=== PATIENT | female | born 1950 | race Caucasian/White ===

== ENCOUNTER 2017-11-19 14:22 | Emergency (ER) | payer MEDICARE, BC ==
--- NOTE | 2017-11-19 14:43 | ER Document Report ---
ED Medical Screen (RME) - General Chief Complaint: Leg Pain Stated Complaint: LEG PAIN Time Seen by Provider: 11/19/17 14:35 Notes: RAPID MEDICAL EVALUATION DISCLOSURE I have seen this patient as part of a Rapid Medical Evaluation and, if applicable, placed any initially appropriate orders. The patient will be seen and fully evaluated, including a full history and physical exam, by a provider ( in Main ED or Fast Track) when a room becomes available. 67-year-old female here with complaints of continued bilateral leg pain and swelling over the past 3 months. She is currently on warfarin for atrial fibrillation but wonders if she may have a blood clot. Several weeks ago, her doctor ordered Doppler studies "to look at the blood flow but not to look for blood clots". She denies that she has had any ultrasounds to evaluate for DVTs. EXAM TTP BLEs TRAVEL OUTSIDE OF THE [place] IN LAST 30 DAYS: No - Related Data Allergies/Adverse Reactions: bacitracin [From Neosporin] Allergy (Verified 11/19/17 14:25) bacitracin zinc [From Neosporin] Allergy (Verified 11/19/17 14:25) balsam [place] [Balsam [place]] Allergy (Verified 11/19/17 14:25) gramicidin D [From Neosporin] Allergy (Verified 11/19/17 14:25) neomycin sulfate [From Neosporin] Allergy (Verified 11/19/17 14:25) polymyxin B [From Neosporin] Allergy (Verified 11/19/17 14:25) polymyxin B sulfate [From Neosporin] Allergy (Verified 11/19/17 14:25) terconazole [From Terazol 3] Allergy (Verified 11/19/17 14:25) Past Medical History - Social History Chew tobacco use (# tins/day): No Frequency of alcohol use: None Drug Abuse: None Renal/ Medical History: Denies: Hx Peritoneal Dialysis GI Medical History: Reports: Hx Irritable Bowel Physical Exam - Vital signs Vitals: Temp Pulse Resp BP Pulse Ox 98.4 F 66 18 126/80 H 98 11/19/17 14:30 11/19/17 14:30 11/19/17 14:30 11/19/17 14:30 11/19/17 14:30 Course - Vital Signs Vital signs: Temp Pulse Resp BP Pulse Ox 98.4 F 66 18 126/80 H 98 11/19/17 14:30 11/19/17 14:30 11/19/17 14:30 11/19/17 14:30 11/19/17 14:30
[2017-11-19 15:32] LABS: ABSOLUTE BASOPHILS # (AUTO) 0.1 10^3/uL (0.0-0.2); ABSOLUTE EOSINOPHILS # (AUTO) 0.2 10^3/uL (0.0-0.6); ABSOLUTE LYMPHOCYTES (AUTO) 2.5 10^3/uL (0.5-4.7); ABSOLUTE MONOCYTES (AUTO) 0.6 10^3/uL (0.1-1.4); ABSOLUTE NEUT (AUTO) 5.5 10^3/uL (1.7-8.2); BASOPHILS % (AUTO) 0.9 % (0-2); EOSINOPHILS % (AUTO) 2.3 % (0-6); HEMATOCRIT 41.4 % (36.0-47.0); HEMOGLOBIN 13.8 g/dL (12.0-15.5); LYMPHOCYTES % (AUTO) 27.9 % (13-45); MEAN CORPUSCULAR HEMOGLOBIN 28.8 pg (27.0-33.4); MEAN CORPUSCULAR HGB CONC 33.5 g/dL (32.0-36.0); MEAN CORPUSCULAR VOLUME 86 fl (80-97); MONOCYTES % (AUTO) 7.2 % (3-13); PLATELET COUNT 262 10^3/uL (150-450); RED BLOOD COUNT 4.81 10^6/uL (3.72-5.28); RED CELL DISTRIBUTION WIDTH 14.4 % (11.5-14.0); SEGMENTED NEUTROPHILS % (AUTO) 61.7 % (42-78); TOTAL CELLS COUNTED % (AUTO) 100 %; WHITE BLOOD COUNT 8.9 10^3/uL (4.0-10.5)
[2017-11-19 15:55] LABS: ANION GAP 14 (5-19); BLOOD UREA NITROGEN 17 mg/dL (7-20); CALCIUM 9.8 mg/dL (8.4-10.2); CARBON DIOXIDE 22 mmol/L (22-30); CHLORIDE 105 mmol/L (98-107); GLUCOSE 126 mg/dL (75-110)
--- NOTE | 2017-11-19 16:07 | ER Document Report ---
ED General - General Chief Complaint: Leg Pain Stated Complaint: LEG PAIN Time Seen by Provider: 11/19/17 14:35 Mode of Arrival: Ambulatory Information source: Patient Notes: 67-year-old female with atrial fibrillation presents with complaint of bilateral leg pain. Patient states leg pain has been present for 3 months with worsening of pain over the last few days. Patient states the majority of her pain is behind her left knee. She denies any prior history of DVT or PE. She denies any shortness of breath or chest pain. She denies any fall or injury. Patient states that she was recently seen at urgent care for sciatica and was referred to rehab. She does state that she had a recent 15 [address] ride from [place]. She is on Coumadin currently. TRAVEL OUTSIDE OF THE [place] IN LAST 30 DAYS: No - HPI Onset: Other Onset/Duration: Constant, Worse Quality of pain: Throbbing Severity: Moderate Associated symptoms: Leg swelling, Other - Right-sided back pain. denies: Chest pain, Shortness of breath Exacerbated by: Walking Relieved by: Denies Similar symptoms previously: Yes Recently seen / treated by doctor: Yes - Related Data Allergies/Adverse Reactions: bacitracin [From Neosporin] Allergy (Verified 11/19/17 14:25) bacitracin zinc [From Neosporin] Allergy (Verified 11/19/17 14:25) balsam lilia [Balsam [place]] Allergy (Verified 11/19/17 14:25) gramicidin D [From Neosporin] Allergy (Verified 11/19/17 14:25) neomycin sulfate [From Neosporin] Allergy (Verified 11/19/17 14:25) polymyxin B [From Neosporin] Allergy (Verified 11/19/17 14:25) polymyxin B sulfate [From Neosporin] Allergy (Verified 11/19/17 14:25) terconazole [From Terazol 3] Allergy (Verified 11/19/17 14:25) Past Medical History - General Information source: Patient, [facility] Records - Social History Smoking Status: Never Smoker Chew tobacco use (# tins/day): No Frequency of alcohol use: None Drug Abuse: None Family History: Reviewed & Not Pertinent Patient has suicidal ideation: No Patient has homicidal ideation: No - Past Medical History Cardiac Medical History: Reports: Hx Atrial Fibrillation Renal/ Medical History: Denies: Hx Peritoneal Dialysis GI Medical History: Reports: Hx Irritable Bowel Musculoskeltal Medical History: Reports Hx Arthritis Review of Systems - Review of Systems Notes: REVIEW OF SYSTEMS: CONSTITUTIONAL : Denies fever, chills, or sweats. Denies recent illness. Denies weight loss, recent hospitalizations. EENT: Denies visula changes, eye pain. Denies nasal or sinus congestion or discharge. Denies sore throat, oral lesions, difficulty swallowing. CARDIOVASCULAR: Denies chest pain. Denies palpitations or racing or irregular heart beat. Denies lower extremity edema. RESPIRATORY: Denies cough, cold, or chest congestion. Denies shortness of breath, difficulty breathing, or wheezing. GASTROINTESTINAL: Denies abdominal pain or distention. Denies nausea, vomiting , or diarrhea. Denies blood in vomitus, stools, or per rectum. Denies black, tarry stools. Denies constipation. GENITOURINARY: Denies difficulty urinating, painful urination, burning, frequency, blood in urine, or vaginal discharge. MUSCULOSKELETAL: Admits to left-sided back pain, bilateral lower extremity pain , left leg swelling. SKIN: Denies rash, lesions or sores. HEMATOLOGIC : Denies easy bruising or bleeding. LYMPHATIC: Denies swollen, enlarged glands. NEUROLOGICAL: Denies confusion or altered mental status. Denies passing out or loss of consciousness. Denies dizziness or lightheadedness. Denies headache. Denies weakness or paralysis or loss of use of either side. Denies problems with gait or speech. Denies sensory loss, numbness, or tingling. Denies seizures. PSYCHIATRIC: Denies anxiety or stress. Denies depression, suicidal ideation, or homicidal ideation. Physical Exam - Vital signs Vitals: Temp Pulse Resp BP Pulse Ox 98.4 F 66 18 126/80 H 98 11/19/17 14:30 11/19/17 14:30 11/19/17 14:30 11/19/17 14:30 11/19/17 14:30 - Notes Notes: PHYSICAL EXAMINATION: GENERAL: Well-appearing, well-nourished and in no acute distress. HEAD: Atraumatic, normocephalic. EYES: Pupils equal round and reactive to light, extraocular movements intact, conjunctiva are normal. ENT: Nares patent, oropharynx clear without exudates. Moist mucous membranes. NECK: Normal range of motion, supple without lymphadenopathy LUNGS: Breath sounds clear to auscultation bilaterally and equal. No wheezes rales or rhonchi. HEART: Regular rate and rhythm without murmurs ABDOMEN: Soft, nontender, nondistended abdomen. No guarding, no rebound. No masses appreciated. Female : deferred Musculoskeletal: Normal range of motion, no pitting or edema. No cyanosis. Tender to palpation along the left calf, left quadricep. mild swelling of left thigh, no erythema, no deformity. DP pulse intact, cap refill less than 2 seconds. NEUROLOGICAL: Cranial nerves grossly intact. Normal speech, normal gait. Normal sensory, motor exams PSYCH: Normal mood, normal affect. SKIN: Warm, Dry, normal turgor, no rashes or lesions noted. Course - Re-evaluation Re-evalutation: 11/19/17 17:52 Venous Doppler Study 11/19/17 14:41 IMPRESSION: NO EVIDENCE DVT OR SVT IN EITHER LEG. Knee X-Ray 11/19/17 16:42 IMPRESSION: Mild patellofemoral degenerative joint changes with no acute abnormality. Lumbar Spine X-Ray 11/19/17 16:42 IMPRESSION: Degenerative disc disease, spondylosis, and facet arthropathy. Laboratory 11/19/17 11/19/17 11/19/17 15:16 15:16 15:16 WBC 8.9 RBC 4.81 Hgb 13.8 Hct 41.4 MCV 86 MCH 28.8 MCHC 33.5 RDW 14.4 H Plt Count 262 Seg Neutrophils % 61.7 Lymphocytes % 27.9 Monocytes % 7.2 Eosinophils % 2.3 Basophils % 0.9 Absolute Neutrophils 5.5 Absolute Lymphocytes 2.5 Absolute Monocytes 0.6 Absolute Eosinophils 0.2 Absolute Basophils 0.1 PT 30.3 H INR 2.74 Sodium 141.0 Potassium 4.0 Chloride 105 Carbon Dioxide 22 Anion Gap 14 BUN 17 Creatinine 0.72 Est GFR ( Amer) > 60 Est GFR (Non-Af Amer) > 60 Glucose 126 H Calcium 9.8 11/19/17 23:45 67-year-old female with atrial fibrillation presents with complaint of bilateral lower extremity pain, left greater than right and left lower extremity swelling that has been ongoing for 3 months. Signs stable upon arrival. Exam is significant for pain with palpation of the left calf and left thigh. There is mild swelling of the left thigh when compared to right. There is no associated erythema. Ultrasound was obtained and negative for DVT. X- rays of the lumbar spine did show degenerative disc disease and x-rays of the left knee was significant for patello femoral degeneration. Patient was advised to ice, use an Johnson wrap, take Tylenol as needed for pain and return to her primary care physician for possible referral to for physical therapy. Patient was also advised that weight loss would help. Patient provided the opportunity to ask questions, and express concerns. Discharge instructions discussed. Patient is agreeable with discharge home. Return indications explained and discussed with the patient who displays understanding. Patient encouraged to return to the emergency department immediately with any concerns. 11/19/17 23:48 - Vital Signs Vital signs: Temp Pulse Resp BP Pulse Ox 97.6 F 62 16 141/65 H 100 11/19/17 18:15 11/19/17 18:15 11/19/17 18:15 11/19/17 18:15 11/19/17 18:15 - Laboratory Result Diagrams: 11/19/17 15:16 11/19/17 15:16 Laboratory results interpreted by me: 11/19/17 11/19/17 11/19/17 15:16 15:16 15:16 RDW 14.4 H PT 30.3 H Glucose 126 H - Diagnostic Test Radiology reviewed: Image reviewed, Reports reviewed Discharge - Discharge Clinical Impression: Left leg pain, Left leg swelling Degenerative disc disease Qualifiers: Spinal region: lumbar Qualified Code(s): M51.36 - Other intervertebral disc degeneration, lumbar region Patella-femoral syndrome Qualifiers: Laterality: left Qualified Code(s): M22.2X2 - Patellofemoral disorders, left knee Disposition: HOME, SELF-CARE Instructions: Suspected Internal Knee Injury ([facility]), Knee Effusion ([facility]), Knee Exercise Program ([facility]), Low Back Pain ([facility]) Additional Instructions: Follow up with your physician tomorrow for further care or return to the ED IMMEDIATELY if symptoms worsen or new concerns occur. If you cannot afford to follow up with your primary care physician a list of low cost clinics have been provided at the end of your discharge papers as well. Prescriptions: Acetaminophen [Tylenol 650 mg Supp] 650 mg CA Q4HP PRN #[id number] supp.rect PRN Reason: Referrals: FLACO COON MD [Primary Care Provider] - Follow up in 3-5 days
[2017-11-19 16:28] LABS: INTERNATIONAL RATION (INR) 2.74; PROTHROMBIN TIME 30.3 SEC (11.4-15.4)
--- NOTE | 2017-11-19 16:36 | RADIOLOGY REPORT (SQ) ---
EXAM DESCRIPTION: VENOUS BILATERAL LOWER COMPLETED DATE/TIME: 11/19/2017 4:25 pm REASON FOR STUDY: BLE swelling and pain; eval DVT COMPARISON: None. TECHNIQUE: Dynamic and static romero scale and color images acquired of both lower extremity venous sy stems. Selected spectral images acquired with additional compression and augmentation maneuvers. Imag es stored on PACS. LIMITATIONS: None. FINDINGS: RIGHT LEG COMMON FEMORAL AND FEMORAL: Normal phasicity, compression and augmentation. No visualized echogenic m aterial on romero scale. No defects on color images. POPLITEAL: Normal compression and augmentation. No visualized echogenic material on romero scale. No de fects on color images. CALF VESSELS: Normal compression and augmentation. No visualized echogenic material on romero scale. No defects on color image. GSV AND SSV: Normal compression. No visualized echogenic material on romero scale. No defects on color images. ANY DEEP VENOUS INSUFFICIENCY: Not evaluated. ANY EVIDENCE OF POPLITEAL CYST: No. OTHER: No other significant finding. LEFT LEG COMMON FEMORAL AND FEMORAL: Normal phasicity, compression and augmentation. No visualized echogenic m aterial on romero scale. No defects on color images. POPLITEAL: Normal compression and augmentation. No visualized echogenic material on romero scale. No de fects on color images. CALF VESSELS: Normal compression and augmentation. No visualized echogenic material on romero scale. No defects on color images. GSV AND SSV: Normal compression. No visualized echogenic material on romero scale. No defects on color images. ANY DEEP VENOUS INSUFFICIENCY: Not evaluated. ANY EVIDENCE POPLITEAL CYST: No. OTHER: No other significant finding. IMPRESSION: NO EVIDENCE DVT OR SVT IN EITHER LEG. TECHNICAL DOCUMENTATION: JOB ID: [id number] [employer]- All Rights Reserved Reading location - IP/workstation name: [email or web address]
--- NOTE | 2017-11-19 17:42 | RADIOLOGY REPORT (SQ) ---
EXAM DESCRIPTION: KNEE LEFT 4 VIEW COMPLETED DATE/TIME: 11/19/2017 5:14 pm REASON FOR STUDY: pain COMPARISON: None. NUMBER OF VIEWS: Four views. TECHNIQUE: AP, lateral, and both oblique radiographic images acquired of the left knee. LIMITATIONS: None. FINDINGS: MINERALIZATION: Normal. BONES: No acute fracture or dislocation. No worrisome bone lesions. JOINT: No effusion. There is a posterosuperior patellar spur. SOFT TISSUES: No soft tissue swelling. No radio-opaque foreign body. OTHER: No other significant finding. IMPRESSION: Mild patellofemoral degenerative joint changes with no acute abnormality. TECHNICAL DOCUMENTATION: JOB ID: [id number] [employer]- All Rights Reserved Reading location - IP/workstation name: [email or web address]
--- NOTE | 2017-11-19 17:47 | RADIOLOGY REPORT (SQ) ---
EXAM DESCRIPTION: L SPINE WHOLE COMPLETED DATE/TIME: 11/19/2017 5:14 pm REASON FOR STUDY: pain COMPARISON: None. NUMBER OF VIEWS: Five views including obliques. TECHNIQUE: AP, lateral, oblique, and sacral radiographic images acquired of the lumbar spine. LIMITATIONS: None. FINDINGS: MINERALIZATION: Normal. SEGMENTATION: Normal. No transitional anatomy. ALIGNMENT: Normal. VERTEBRAE: Maintained height. No fracture or worrisome bone lesion. DISCS: All the lumbar disc spaces are narrowed to some degree. Small marginal osteophytes are seen f rom L2-L5. POSTERIOR ELEMENTS: Mild hypertrophic facet changes are present from L4-S1. HARDWARE: None in the spine. PARASPINAL SOFT TISSUES: Normal. PELVIS: Intact as visualized. No fractures or worrisome bone lesions. SI joints intact. OTHER: No other significant finding. IMPRESSION: Degenerative disc disease, spondylosis, and facet arthropathy. TECHNICAL DOCUMENTATION: JOB ID: [id number] [employer]- All Rights Reserved Reading location - IP/workstation name: [email or web address]
[2017-11-19 18:21] VITALS: BP 141/65
== END 2017-11-19 19:12 | disposition home or self-care (01) ==
LOC: ER 14:22
DX: M22.2X2 Patellofemoral disorders, left knee (principal); M51.36 Other intervertebral disc degeneration, lumbar region; M79.605 Pain in left leg; M79.89 Other specified soft tissue disorders; M79.604 Pain in right leg; M25.562 Pain in left knee; I48.91 Unspecified atrial fibrillation; Z79.01 Long term (current) use of anticoagulants
CPT/HCPCS: 36415; 72110; 80048; 85025; 85610; 93970; 99284

== ENCOUNTER → 2017-11-26 | Outpatient (CLI) | payer MEDICARE, BC ==
--- NOTE | 2017-11-26 16:59 | RADIOLOGY REPORT (SQ) ---
EXAM DESCRIPTION: CHEST PA/LATERAL COMPLETED DATE/TIME: 11/26/2017 4:51 pm REASON FOR STUDY: PRIMARY HYPERTENSION COMPARISON: None. EXAM PARAMETERS: NUMBER OF VIEWS: two views TECHNIQUE: Digital Frontal and Lateral radiographic views of the chest acquired. RADIATION DOSE: NA LIMITATIONS: none FINDINGS: LUNGS AND PLEURA: No opacities, masses or pneumothorax. No pleural effusion. MEDIASTINUM AND HILAR STRUCTURES: No masses or contour abnormalities. HEART AND VASCULAR STRUCTURES: Heart normal size. No evidence for failure. BONES: No acute findings. HARDWARE: None in the chest. OTHER: No other significant finding. IMPRESSION: NO SIGNIFICANT RADIOGRAPHIC FINDING IN THE CHEST. TECHNICAL DOCUMENTATION: JOB ID: [id number] [employer]- All Rights Reserved Reading location - IP/workstation name: [email or web address]
[2017-11-26 17:12] LABS: ABSOLUTE BASOPHILS # (AUTO) 0.1 10^3/uL (0.0-0.2); ABSOLUTE EOSINOPHILS # (AUTO) 0.1 10^3/uL (0.0-0.6); ABSOLUTE LYMPHOCYTES (AUTO) 2.6 10^3/uL (0.5-4.7); ABSOLUTE MONOCYTES (AUTO) 0.8 10^3/uL (0.1-1.4); ABSOLUTE NEUT (AUTO) 6.4 10^3/uL (1.7-8.2); BASOPHILS % (AUTO) 0.8 % (0-2); EOSINOPHILS % (AUTO) 1.5 % (0-6); HEMATOCRIT 39.9 % (36.0-47.0); HEMOGLOBIN 13.4 g/dL (12.0-15.5); LYMPHOCYTES % (AUTO) 26.2 % (13-45); MEAN CORPUSCULAR HEMOGLOBIN 28.9 pg (27.0-33.4); MEAN CORPUSCULAR HGB CONC 33.6 g/dL (32.0-36.0); MEAN CORPUSCULAR VOLUME 86 fl (80-97); MONOCYTES % (AUTO) 8.1 % (3-13); PLATELET COUNT 251 10^3/uL (150-450); RED BLOOD COUNT 4.63 10^6/uL (3.72-5.28); RED CELL DISTRIBUTION WIDTH 14.3 % (11.5-14.0); SEGMENTED NEUTROPHILS % (AUTO) 63.4 % (42-78); TOTAL CELLS COUNTED % (AUTO) 100 %; WHITE BLOOD COUNT 10.1 10^3/uL (4.0-10.5)
[2017-11-26 17:20] LABS: APPEARANCE,URINE SLIGHTLY-CLOUDY; BILIRUBIN,URINE NEGATIVE (NEGATIVE); CALCIUM OXALATE CRYSTALS,URINE FEW /HPF; COLOR,URINE YELLOW; GLUCOSE, URINE NEGATIVE (NEGATIVE); KETONES,URINE NEGATIVE (NEGATIVE); LEUKOCYTE ESTERASE,URINE TRACE (NEGATIVE); NITRITE,URINE NEGATIVE (NEGATIVE); PROTEIN,URINE NEGATIVE (NEGATIVE); URINE SPECIFIC GRAVITY 1.026; UROBILINOGEN,URINE NEGATIVE mg/dL (<2.0)
[2017-11-26 17:29] LABS: ANION GAP 14 (5-19); BLOOD UREA NITROGEN 16 mg/dL (7-20); CALCIUM 9.8 mg/dL (8.4-10.2); CARBON DIOXIDE 26 mmol/L (22-30); CHLORIDE 103 mmol/L (98-107); GLUCOSE 101 mg/dL (75-110); POTASSIUM 4.4 mmol/L (3.6-5.0); SODIUM 142.7 mmol/L (137-145)
--- NOTE | 2017-11-26 23:09 | EKG REPORT ---
SEVERITY:- NORMAL ECG - SINUS RHYTHM : Confirmed by: Jamie Mares 26-Nov-2017 23:08:27
== END ==
LOC: EEVIPCON 15:30 → OD 15:30
PROVIDERS: ATTEND Orthopaedic Surgery
DX: I10 Essential (primary) hypertension (principal); E11.9 Type 2 diabetes mellitus without complications
CPT/HCPCS: 36415; 71046; 80048; 81001; 83036; 85025; 93005; 93010

== ENCOUNTER 2017-12-17 06:05 | Day surgery (SDC) | payer MEDICARE, BC ==
[~2017-12-17 06:05] MED LIST: CLINDAMYCIN 600 MG/D5W RTU 600 MG/50 ML RTUPB IV PRN; LACTATED RINGERS 1000 ML IV PRN; LIDOCAINE 0.5% INJ-PF (5 MG/ML) 50 ML SDV SUBCUT PRN
[2017-12-17] MEDS ORDERED: LIDOCAINE 1%/EPINEPHRINE INJ 20 ML VIAL ONE (07:18)
[2017-12-17] MEDS ORDERED: BUPIVACAINE HCL 0.5 % INJ/PF 30 ML SDV ONE (07:18)
[2017-12-17 07:19] LABS: INTERNATIONAL RATION (INR) 0.95; PROTHROMBIN TIME 13.2 SEC (11.4-15.4)
[2017-12-17 07:20] LABS: PARTIAL THROMBOPLASTIN TIME 28.8 SEC (23.5-35.8)
[2017-12-17] MEDS ORDERED: MIDAZOLAM 2 MG/2 ML INJ ONE (08:06)
[2017-12-17] MEDS ORDERED: PROPOFOL INJ 200 MG/20 ML VIAL IV ONE (08:06)
[2017-12-17] MEDS ORDERED: FENTANYL CITRATE INJ/PF 100 MCG/2 ML AMPUL ONE (08:06)
[2017-12-17] MEDS ORDERED: PROMETHAZINE HCL INJ 25 MG/1 ML VIAL IV PRN ×2 (08:36)
[2017-12-17] MEDS ORDERED: FENTANYL CITRATE INJ/PF 100 MCG/2 ML AMPUL IV PRN ×3 (08:36)
[2017-12-17] MEDS ORDERED: OXYCODONE-ACETAMINOPHEN 5-325 MG TABLET PO PRN ×2 (08:36)
[2017-12-17] MEDS ORDERED: MEPERIDINE HCL/PF INJ 25 MG/1 ML DISP.SYRIN IV PRN (08:36)
[2017-12-17] MEDS ORDERED: DIPHENHYDRAMINE HCL 50 MG/ML VIAL IV PRN (08:36)
--- NOTE | 2017-12-17 08:54 | Operative Report ---
Operative Report DATE OF SURGERY: 12/17/17 PREOPERATIVE DIAGNOSIS: Left medial meniscal tear POSTOPERATIVE DIAGNOSIS: Left medial meniscal tear. 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 Intact ACL. Left lateral meniscal tear. 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 Grade 2-3 cannulation of the patellofemoral compartment OPERATION: Arthroscopic partial left medial and lateral meniscectomies SURGEON: PAM HAJI ANESTHESIA: LMAC PROCEDURE: With the patient supine on the operating table the left lower extremities prepped and draped in sterile fashion. The knee is insufflated with combination of Marcaine, Xylocaine, and epinephrine. Subsequent medial lateral infrapatellar portals are created for introduction of arthroscope and debridement instrumentation. Joint is examined in systematic fashion findings as above. Using combination of basket Rodriguez, mechanical shaver, electric frequency ablation probe a partial medial meniscectomy performed from approximately 7:00 to 12:00 in the face of the dial. In a similar fashion a partial lateral meniscectomy was performed from approximately 6:00 to 12:00 in the face of the dial. The joint is again examined in systematic fashion with no new findings. There is no clear loose bodies. The instrumentation is subsequent withdrawn. The portals closed using interrupted nylon. A sterile compressive dressing is applied. The patient returned to PACU in satisfactory condition.
[2017-12-17] MEDS: FENTANYL CITRATE INJ/PF 100 MCG/2 ML AMPUL ONE ×2 (09:12→09:17)
[2017-12-17] MEDS ORDERED: OXYCODONE HCL IR 5 MG TABLET PO PRN (10:16)
[2017-12-17] MEDS ORDERED: ONDANSETRON 4 MG TAB.RAPDIS PO PRN (10:17)
[2017-12-17 13:03] VITALS: BP 127/74
[2017-12-17] MEDS ORDERED: LIDOCAINE 2% INJ-PF (20 MG/ML) 2 ML AMPUL ONE (13:29)
== END 2017-12-17 12:35 | disposition home or self-care (01) ==
LOC: OROUT 06:05
PROVIDERS: ATTEND Orthopaedic Surgery
DX: M23.201 Derangement of unspecified lateral meniscus due to old tear or injury, left knee (principal); M23.204 Derangement of unspecified medial meniscus due to old tear or injury, left knee; M94.262 Chondromalacia, left knee; M25.562 Pain in left knee; K21.9 Gastro-esophageal reflux disease without esophagitis; M94.0 Chondrocostal junction syndrome [Tietze]; M79.7 Fibromyalgia; E78.00 Pure hypercholesterolemia, unspecified; I10 Essential (primary) hypertension; E11.9 Type 2 diabetes mellitus without complications; E66.9 Obesity, unspecified; Z68.41 Body mass index [BMI] 40.0-44.9, adult; Z79.01 Long term (current) use of anticoagulants; Z88.0 Allergy status to penicillin; Z86.73 Personal history of transient ischemic attack (TIA), and cerebral infarction without residual deficits; Z79.899 Other long term (current) drug therapy; Z79.84 Long term (current) use of oral hypoglycemic drugs
CPT/HCPCS: 36415; 82962; 85610; 85730; 29880; J2250; J3490 ×3; J3010; J2704; A9270; 1400

== ENCOUNTER 2018-01-04 17:29 | Emergency (ER) | payer OTHER, MEDICARE, BC ==
[2018-01-04 17:37] VITALS: BP 119/69
--- NOTE | 2018-01-04 19:32 | RADIOLOGY REPORT (SQ) ---
EXAM DESCRIPTION: CT HEAD WITHOUT COMPLETED DATE/TIME: 01/04/2018 7:13 pm REASON FOR STUDY: headache COMPARISON: None. TECHNIQUE: Axial images acquired through the brain without intravenous contrast. Images reviewed wi th bone, brain and subdural windows. Images stored on PACS. All CT scanners at this facility use dose modulation, iterative reconstruction, and/or weight based d osing when appropriate to reduce radiation dose to as low as reasonably achievable (ALARA). [facility]: Dose Right [facility]: CareDose [facility]: Dose Right [facility]: Teradose 4D [facility]: Smart [employer] RADIATION DOSE: CT Rad equipment meets quality standard of care and radiation dose reduction techniq ues were employed. CTDIvol: 53.2 mGy. DLP: 964 mGy-cm. mGy. LIMITATIONS: None. FINDINGS: VENTRICLES: Normal size and contour. CEREBRUM: No masses. No hemorrhage. No midline shift. No evidence for acute infarction. Normal gra y/white matter differentiation. No areas of low density in the white matter. CEREBELLUM: No masses. No hemorrhage. No alteration of density. No evidence for acute infarction. EXTRAAXIAL SPACES: No fluid collections. No masses. ORBITS AND GLOBE: No intra- or extraconal masses. Normal contour of globe without masses. CALVARIUM: No fracture. PARANASAL SINUSES: No fluid or mucosal thickening. SOFT TISSUES: No mass or hematoma. OTHER: No other significant finding. IMPRESSION: No acute intracranial findings. EVIDENCE OF ACUTE STROKE: NO. COMMENT: Quality ID # [id number]: Final reports with documentation of one or more dose reduction techniques (e.g., Automated exposure control, adjustment of the mA and/or kV according to patient size, use of iterative reconstruction technique) TECHNICAL DOCUMENTATION: JOB ID: [id number] [place]-72 2010 [employer]- All Rights Reserved Reading location - IP/workstation name: [email or web address]
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
--- NOTE | 2018-01-04 19:45 | RADIOLOGY REPORT (SQ) ---
EXAM DESCRIPTION: CT FACIAL AREA WITHOUT COMPLETED DATE/TIME: 01/04/2018 7:13 pm REASON FOR STUDY: INJURY PAIN COMPARISON: 12/28/2012 TECHNIQUE: Noncontrasted images through the facial bones and orbits windowed for bone and soft tissu e. Additional coronal and sagittal reconstructed images reviewed. All images stored on PACS. All CT scanners at this facility use dose modulation, iterative reconstruction, and/or weight based d osing when appropriate to reduce radiation dose to as low as reasonably achievable (ALARA). [facility]: Dose Right [facility]: CareDose [facility]: Dose Right [facility]: Teradose 4D [facility]: [employer] RADIATION DOSE: CT Rad equipment meets quality standard of care and radiation dose reduction techniq ues were employed. CTDIvol: 30.4 mGy. DLP: 555 mGy-cm. mGy. LIMITATIONS: None. FINDINGS: FACIAL BONES: No fracture or bone lesion. ORBITS: Intact. No fracture. Symmetric intact globes and retroorbital soft tissues. PARANASAL SINUSES: Minimal right maxillary mucosal thickening. No mass or fluid. No nasal polyps. M axillary sinus outlets are patent. SOFT TISSUES: No mass or edema. INFERIOR BRAIN: Limited view. No acute findings. OTHER: No other significant finding. IMPRESSION: NO ACUTE FINDINGS. TECHNICAL DOCUMENTATION: JOB ID: [id number] [place]-72 Quality ID # [id number]: Final reports with documentation of one or more dose reduction techniques (e.g., Au tomated exposure control, adjustment of the mA and/or kV according to patient size, use of iterative reconstruction technique) 2010 [employer]- All Rights Reserved Reading location - IP/workstation name: [email or web address]
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
[2018-01-04] MEDS ORDERED: ACETAMINOPHEN 325 MG TABLET PO ONE (20:21)
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
[2018-01-04 20:24] LABS: INTERNATIONAL RATION (INR) 2.01; PROTHROMBIN TIME 23.7 SEC (11.4-15.4)
== END 2018-01-04 20:45 | disposition home or self-care (01) ==
LOC: ER 17:29
DX: R51 Headache (principal); M54.2 Cervicalgia; M54.5 Low back pain; M25.562 Pain in left knee; Z98.890 Other specified postprocedural states; V43.62XA Car passenger injured in collision with other type car in traffic accident, initial encounter; V89.2XXA Person injured in unspecified motor-vehicle accident, traffic, initial encounter; I48.91 Unspecified atrial fibrillation; I25.10 Atherosclerotic heart disease of native coronary artery without angina pectoris; E78.00 Pure hypercholesterolemia, unspecified; I10 Essential (primary) hypertension
CPT/HCPCS: 36415; 70450; 70486; 72110; 72125; 72220; 85610; 99284

== ENCOUNTER 2018-02-23 17:53 | Emergency (ER) | payer MEDICARE, BC ==
--- NOTE | 2018-02-23 18:52 | ER Document Report ---
ED General - General Chief Complaint: Nausea Stated Complaint: POSSIBLE AFIB Time Seen by Provider: 02/23/18 18:29 Notes: 67-year-old female to the emergency department for evaluation of not feeling well. States that she felt some palpitations. Went to a local pharmacy and spoke with the pharmacist and the pharmacist said that she probably should get checked out to make sure this was not a heart attack. Patient has a multitude of complaints. States that she recently had an infection and was on antibiotics. Developed fungal infection. Currently is on Diflucan. Takes Diflucan daily and is on day 8 of a 15 day course. States that she feels tired. Intermittent sweats. Intermittent nausea but no vomiting. Denies any chest pain or shortness of breath at this time. Patient has a history of atrial fibrillation in the past. Is currently on Coumadin. TRAVEL OUTSIDE OF THE [place] IN LAST 30 DAYS: No - HPI Onset: Last week Onset/Duration: Gradual, Constant Quality of pain: No pain - Related Data Allergies/Adverse Reactions: bacitracin [From Neosporin] Allergy (Verified 01/04/18 17:31) balsam dixon [Balsam Dixon] Allergy (Verified 01/04/18 17:31) benzyl alcohol Allergy (Verified 01/04/18 17:31) cortisone Allergy (Verified 01/04/18 17:31) epoxy resin Allergy (Verified 01/04/18 17:31) ethylenediamine Allergy (Verified 01/04/18 17:31) formaldehyde Allergy (Verified 01/04/18 17:31) gramicidin D [From Neosporin] Allergy (Verified 01/04/18 17:31) neomycin sulfate [From Neosporin] Allergy (Verified 01/04/18 17:31) nystatin Allergy (Verified 01/04/18 17:31) polyethylene glycol Allergy (Verified 01/04/18 17:31) polymyxin B sulfate [From Neosporin] Allergy (Verified 01/04/18 17:31) propylene glycol Allergy (Verified 01/04/18 17:31) rosin Allergy (Verified 01/04/18 17:31) terconazole [From Terazol 3] Allergy (Verified 01/04/18 17:31) tioconazole [From Monistat 1 (tioconazole)] Allergy (Verified 01/04/18 17:31) ultrasound coupling medium Allergy (Verified 01/04/18 17:31) ANTIHYSTAMINES Allergy (Uncoded 01/04/18 17:31) CHROME Allergy (Uncoded 01/04/18 17:31) DIHYDROCHLORIDE Allergy (Uncoded 01/04/18 17:31) GREEN SOAP Allergy (Uncoded 01/04/18 17:31) STAINLESS STEEL Allergy (Uncoded 01/04/18 17:31) TAPE Allergy (Uncoded 01/04/18 17:31) Past Medical History - General Information source: Patient - Social History Smoking Status: Never Smoker Cigarette use (# per day): No Frequency of alcohol use: None Drug Abuse: None Lives with: Family Family History: Reviewed & Not Pertinent Patient has suicidal ideation: No Patient has homicidal ideation: No - Past Medical History Cardiac Medical History: Reports: Hx Atrial Fibrillation, Hx Coronary Artery Disease, Hx Hypercholesterolemia, Hx Hypertension Denies: Hx Heart Attack Pulmonary Medical History: Reports: Hx Asthma - POSSIBLY, NO CURRENT MEDS, Hx Pneumonia - COUPLE YRS AGO Denies: Hx Bronchitis, Hx COPD Neurological Medical History: Denies: Hx Cerebrovascular Accident, Hx Seizures Renal/ Medical History: Denies: Hx Peritoneal Dialysis GI Medical History: Reports: Hx Irritable Bowel Musculoskeletal Medical History: Reports Hx Arthritis - GENERALIZED Past Surgical History: Reports: Hx Orthopedic Surgery - Immunizations Hx Diphtheria, Pertussis, Tetanus Vaccination: Yes Review of Systems - Review of Systems Notes: Constitutional: denies: Chills, Diaphoresis, Fever, Malaise,. Does complain of weakness and sweating EENT: denies: Eye discharge, Blurred vision, Tearing, Double vision, Nose congestion, Nose discharge, Throat swelling, Mouth pain Cardiovascular: denies: Heart racing, Orthopnea, Dyspnea, Chest pain. Does complain of intermittent palpitations Respiratory: denies: Cough, Hurts to breathe, Wheezing, Shortness of breath Gastrointestinal: denies: Abdominal pain, Diarrhea, Nausea, Vomiting, Black stools, bright red blood in stool Genitourinary: denies: Burning, Dysuria, Discharge, Frequency, Flank pain, Hematuria Musculoskeletal: denies: Joint pain, Joint swelling, Muscle pain, Muscle stiffness, back pain Hematologic/Lymphatic: denies: Anemia, Easy bleeding, Easy bruising, Blood clots Neurological/Psychological: denies: Confusion, Dementia, Depression, Loss of consciousness Skin: No lesions, no masses, no skin breakdown, no abscesses Physical Exam - Vital signs Vitals: Temp Pulse Resp BP Pulse Ox 98.2 F 82 16 151/86 H 98 02/23/18 18:13 02/23/18 18:13 02/23/18 18:13 02/23/18 18:13 02/23/18 18:13 Interpretation: Normal - General General appearance: Appears well, Alert - HEENT Head: Normocephalic, Atraumatic Eyes: Normal Pupils: PERRL - Respiratory Respiratory status: No respiratory distress Chest status: Nontender Breath sounds: Normal Chest palpation: Normal - Cardiovascular Rhythm: Regular Heart sounds: Normal auscultation Murmur: No - Abdominal Inspection: Normal Distension: No distension Bowel sounds: Normal Tenderness: Nontender Organomegaly: No organomegaly - Back Back: Normal, Nontender - Extremities General upper extremity: Normal inspection, Nontender, Normal color, Normal ROM , Normal temperature General lower extremity: Normal inspection, Nontender, Normal color, Normal ROM , Normal temperature, Normal weight bearing. No: Alan's sign - Neurological Neuro grossly intact: Yes Cognition: Normal Orientation: AAOx4 [place] Coma Scale Eye Opening: Spontaneous [place] Coma Scale Verbal: Oriented [place] Coma Scale Motor: Obeys Commands [place] Coma Scale Total: 15 Speech: Normal Motor strength normal: LUE, RUE, LLE, RLE Sensory: Normal - Psychological Associated symptoms: Normal affect, Normal mood - Skin Skin Temperature: Warm Skin Moisture: Dry Skin Color: Normal Course - Re-evaluation Re-evalutation: 02/23/18 19:07 More likely patient is having some symptoms related to being on the Diflucan. Patient was on a statin prior to starting the Diflucan and has started on the fenofibrate. Could be having interaction with these medications. At this time I am going to check patient's LFTs and her INR. I do not feel the patient has any symptoms consistent with a heart attack. Her EKG is normal. Will add a troponin just for thoroughness since we are drawing her blood. She has no chest pain or chest tightness at this time. In no acute distress. 02/23/18 20:40 Laboratory 02/23/18 02/23/18 02/23/18 19:43 19:43 19:43 WBC 9.2 RBC 4.70 Hgb 13.8 Hct 41.0 MCV 87 MCH 29.3 MCHC 33.6 RDW 14.4 H Plt Count 323 Seg Neutrophils % 51.3 Lymphocytes % 39.2 Monocytes % 6.8 Eosinophils % 1.7 Basophils % 1.0 Absolute Neutrophils 4.7 Absolute Lymphocytes 3.6 Absolute Monocytes 0.6 Absolute Eosinophils 0.2 Absolute Basophils 0.1 PT 32.8 H INR 3.03 APTT 46.1 H Sodium 141.2 Potassium 4.0 Chloride 102 Carbon Dioxide 27 Anion Gap 12 BUN 20 Creatinine 0.96 Est GFR ( Amer) > 60 Est GFR (Non-Af Amer) 58 L Glucose 112 H Calcium 10.0 Total Bilirubin 0.2 Direct Bilirubin 0.2 Neonat Total Bilirubin Not Reportable Neonat Direct Bilirubin Not Reportable Neonat Indirect Bili Not Reportable AST 27 ALT 31 Alkaline Phosphatase 45 Troponin I Total Protein 7.9 Albumin 4.5 Urine Color Urine Appearance Urine pH Ur Specific [place] Urine Protein Urine Glucose (UA) Urine Ketones Urine Blood Urine Nitrite Urine Bilirubin Urine Urobilinogen Ur Leukocyte Esterase Urine WBC (Auto) Urine RBC (Auto) Squamous Epi Cells Auto Amorphous Sediment Auto Urine Ascorbic Acid 02/23/18 02/23/18 19:43 20:12 WBC RBC Hgb Hct MCV MCH MCHC RDW Plt Count Seg Neutrophils % Lymphocytes % Monocytes % Eosinophils % Basophils % Absolute Neutrophils Absolute Lymphocytes Absolute Monocytes Absolute Eosinophils Absolute Basophils PT INR APTT Sodium Potassium Chloride Carbon Dioxide Anion Gap BUN Creatinine Est GFR ( Amer) Est GFR (Non-Af Amer) Glucose Calcium Total Bilirubin Direct Bilirubin Neonat Total Bilirubin Neonat Direct Bilirubin Neonat Indirect Bili AST ALT Alkaline Phosphatase Troponin I < 0.012 Total Protein Albumin Urine Color YELLOW Urine Appearance CLOUDY Urine pH 7.0 Ur Specific [place] 1.020 Urine Protein NEGATIVE Urine Glucose (UA) NEGATIVE Urine Ketones NEGATIVE Urine Blood NEGATIVE Urine Nitrite NEGATIVE Urine Bilirubin NEGATIVE Urine Urobilinogen NEGATIVE Ur Leukocyte Esterase NEGATIVE Urine WBC (Auto) 3 Urine RBC (Auto) 8 Squamous Epi Cells Auto 2 Amorphous Sediment Auto TRACE Urine Ascorbic Acid NEGATIVE Laboratory 02/23/18 02/23/18 02/23/18 19:43 19:43 19:43 WBC 9.2 RBC 4.70 Hgb 13.8 Hct 41.0 MCV 87 MCH 29.3 MCHC 33.6 RDW 14.4 H Plt Count 323 Seg Neutrophils % 51.3 Lymphocytes % 39.2 Monocytes % 6.8 Eosinophils % 1.7 Basophils % 1.0 Absolute Neutrophils 4.7 Absolute Lymphocytes 3.6 Absolute Monocytes 0.6 Absolute Eosinophils 0.2 Absolute Basophils 0.1 PT 32.8 H INR 3.03 APTT 46.1 H Sodium 141.2 Potassium 4.0 Chloride 102 Carbon Dioxide 27 Anion Gap 12 BUN 20 Creatinine 0.96 Est GFR ( Amer) > 60 Est GFR (Non-Af Amer) 58 L Glucose 112 H Calcium 10.0 Total Bilirubin 0.2 Direct Bilirubin 0.2 Neonat Total Bilirubin Not Reportable Neonat Direct Bilirubin Not Reportable Neonat Indirect Bili Not Reportable AST 27 ALT 31 Alkaline Phosphatase 45 Troponin I Total Protein 7.9 Albumin 4.5 Urine Color Urine Appearance Urine pH Ur Specific [place] Urine Protein Urine Glucose (UA) Urine Ketones Urine Blood Urine Nitrite Urine Bilirubin Urine Urobilinogen Ur Leukocyte Esterase Urine WBC (Auto) Urine RBC (Auto) Squamous Epi Cells Auto Amorphous Sediment Auto Urine Ascorbic Acid 02/23/18 02/23/18 19:43 20:12 WBC RBC Hgb Hct MCV MCH MCHC RDW Plt Count Seg Neutrophils % Lymphocytes % Monocytes % Eosinophils % Basophils % Absolute Neutrophils Absolute Lymphocytes Absolute Monocytes Absolute Eosinophils Absolute Basophils PT INR APTT Sodium Potassium Chloride Carbon Dioxide Anion Gap BUN Creatinine Est GFR ( Amer) Est GFR (Non-Af Amer) Glucose Calcium Total Bilirubin Direct Bilirubin Neonat Total Bilirubin Neonat Direct Bilirubin Neonat Indirect Bili AST ALT Alkaline Phosphatase Troponin I < 0.012 Total Protein Albumin Urine Color YELLOW Urine Appearance CLOUDY Urine pH 7.0 Ur Specific [place] 1.020 Urine Protein NEGATIVE Urine Glucose (UA) NEGATIVE Urine Ketones NEGATIVE Urine Blood NEGATIVE Urine Nitrite NEGATIVE Urine Bilirubin NEGATIVE Urine Urobilinogen NEGATIVE Ur Leukocyte Esterase NEGATIVE Urine WBC (Auto) 3 Urine RBC (Auto) 8 Squamous Epi Cells Auto 2 Amorphous Sediment Auto TRACE Urine Ascorbic Acid NEGATIVE No evidence of any acute pathology on patient's labs. Discussed the benefits and risks of continuing on with the Diflucan treatment. I advised her to follow back up with her regular doctor for this decision-making process. Will DC at this time. - Vital Signs Vital signs: Temp Pulse Resp BP Pulse Ox 98.2 F 82 16 151/86 H 98 02/23/18 18:13 02/23/18 18:13 02/23/18 18:13 02/23/18 18:13 02/23/18 18:13 - Laboratory Result Diagrams: 02/23/18 19:43 02/23/18 19:43 Laboratory results interpreted by me: 02/23/18 02/23/18 02/23/18 19:43 19:43 19:43 RDW 14.4 H PT 32.8 H APTT 46.1 H Est GFR (Non-Af Amer) 58 L Glucose 112 H - EKG Interpretation by Me EKG shows normal: Sinus rhythm, [place], Intervals, QRS Complexes, ST-T Waves Discharge - Discharge Clinical Impression: Intermittent palpitations Medication adverse effect Qualifiers: Encounter type: initial encounter Qualified Code(s): T50.905A - Adverse effect of unspecified drugs, medicaments and biological substances, initial encounter Condition: Good Disposition: HOME, SELF-CARE Instructions: Palpitations (Irregular or Rapid Heartrate) ([facility]) Additional Instructions: Please discuss with your provider whether or not the benefits outweigh the risks of continuing the Diflucan therapy. There is no evidence at this time that you are in atrial fibrillation. Your INR is 3.0 which is therapeutic. In the event that symptoms return please return to the emergency department if needed for repeat evaluation. Referrals: FLACO COON MD [Primary Care Provider] - Follow up as needed
--- NOTE | 2018-02-23 19:26 | EKG REPORT ---
SEVERITY:- NORMAL ECG - SINUS RHYTHM : Confirmed by: Ramon Plunkett MD 23-Feb-2018 19:26:22
[2018-02-23 19:52] LABS: ABSOLUTE BASOPHILS # (AUTO) 0.1 10^3/uL (0.0-0.2); ABSOLUTE EOSINOPHILS # (AUTO) 0.2 10^3/uL (0.0-0.6); ABSOLUTE LYMPHOCYTES (AUTO) 3.6 10^3/uL (0.5-4.7); ABSOLUTE MONOCYTES (AUTO) 0.6 10^3/uL (0.1-1.4); ABSOLUTE NEUT (AUTO) 4.7 10^3/uL (1.7-8.2); EOSINOPHILS % (AUTO) 1.7 % (0-6); HEMOGLOBIN 13.8 g/dL (12.0-15.5); LYMPHOCYTES % (AUTO) 39.2 % (13-45); MEAN CORPUSCULAR HEMOGLOBIN 29.3 pg (27.0-33.4); MEAN CORPUSCULAR HGB CONC 33.6 g/dL (32.0-36.0); MEAN CORPUSCULAR VOLUME 87 fl (80-97); MONOCYTES % (AUTO) 6.8 % (3-13); PLATELET COUNT 323 10^3/uL (150-450); RED CELL DISTRIBUTION WIDTH 14.4 % (11.5-14.0); SEGMENTED NEUTROPHILS % (AUTO) 51.3 % (42-78); TOTAL CELLS COUNTED % (AUTO) 100 %; WHITE BLOOD COUNT 9.2 10^3/uL (4.0-10.5)
[2018-02-23 19:59] LABS: INTERNATIONAL RATION (INR) 3.03; PROTHROMBIN TIME 32.8 SEC (11.4-15.4)
[2018-02-23 20:00] LABS: PARTIAL THROMBOPLASTIN TIME 46.1 SEC (23.5-35.8)
[2018-02-23 20:12] LABS: ALANINE AMINOTRANSFERASE 31 U/L (9-52); ALBUMIN 4.5 g/dL (3.5-5.0); ALKALINE PHOSPHATASE 45 U/L (38-126); ANION GAP 12 (5-19); ASPARTATE AMINO TRANSFERASE 27 U/L (14-36); BILIRUBIN,DIRECT 0.2 mg/dL (0.0-0.4); BILIRUBIN,TOTAL 0.2 mg/dL (0.2-1.3); BLOOD UREA NITROGEN 20 mg/dL (7-20); CARBON DIOXIDE 27 mmol/L (22-30); CHLORIDE 102 mmol/L (98-107); GLUCOSE 112 mg/dL (75-110); SODIUM 141.2 mmol/L (137-145); TOTAL PROTEIN 7.9 g/dL (6.3-8.2)
[2018-02-23 20:33] LABS: AMORPHOUS SEDIMENT,URINE TRACE /HPF; APPEARANCE,URINE CLOUDY; BILIRUBIN,URINE NEGATIVE (NEGATIVE); COLOR,URINE YELLOW; GLUCOSE, URINE NEGATIVE (NEGATIVE); KETONES,URINE NEGATIVE (NEGATIVE); LEUKOCYTE ESTERASE,URINE NEGATIVE (NEGATIVE); NITRITE,URINE NEGATIVE (NEGATIVE); PROTEIN,URINE NEGATIVE (NEGATIVE); UROBILINOGEN,URINE NEGATIVE mg/dL (<2.0)
[2018-02-23 20:53] VITALS: BP 154/75
== END 2018-02-23 21:10 | disposition home or self-care (01) ==
LOC: ER 17:53
DX: R00.2 Palpitations (principal); T37.8X5A Adverse effect of other specified systemic anti-infectives and antiparasitics, initial encounter; R11.0 Nausea; Y92.9 Unspecified place or not applicable; E78.00 Pure hypercholesterolemia, unspecified; I10 Essential (primary) hypertension; I48.91 Unspecified atrial fibrillation
CPT/HCPCS: 36415; 80053; 81001; 84484; 85025; 85610; 85730; 93005; 93010; 99285

== ENCOUNTER 2018-04-27 18:37 | Emergency (ER) | payer MEDICARE, BC ==
--- NOTE | 2018-04-27 19:52 | RADIOLOGY REPORT (SQ) ---
EXAM DESCRIPTION: CHEST 2 VIEWS COMPLETED DATE/TIME: 04/27/2018 7:28 pm REASON FOR STUDY: afib COMPARISON: None. EXAM PARAMETERS: NUMBER OF VIEWS: two views TECHNIQUE: Digital Frontal and Lateral radiographic views of the chest acquired. RADIATION DOSE: NA LIMITATIONS: none FINDINGS: LUNGS AND PLEURA: No opacities, masses or pneumothorax. No pleural effusion. MEDIASTINUM AND HILAR STRUCTURES: No masses or contour abnormalities. HEART AND VASCULAR STRUCTURES: Heart normal size. No evidence for failure. BONES: No acute findings. HARDWARE: None in the chest. OTHER: No other significant finding. IMPRESSION: NO ACUTE RADIOGRAPHIC FINDING IN THE CHEST. TECHNICAL DOCUMENTATION: JOB ID: [id number] [employer]- All Rights Reserved Reading location - IP/workstation name: [email or web address]
--- NOTE | 2018-04-27 20:03 | ER Document Report ---
ED Medical Screen (RME) - General Chief Complaint: Abdominal Pain >50 Stated Complaint: ABDOMINAL PAIN/HEADACHE Time Seen by Provider: 04/27/18 19:47 Notes: 67 years old female presents today with diffuse abdominal pain, as well as left side and right upper quadrant. This been going on for the last few days and also complained of pain across the chest wall. She was seen at [facility] 3 days ago for presumed A. fib and neck pain. She told a very long story I cannot put everything in the dictation. She also complaint of headache. On examination-not seems to be in any major distress. Slight left-sided abdominal tenderness. TRAVEL OUTSIDE OF THE [place] IN LAST 30 DAYS: No - Related Data Allergies/Adverse Reactions: bacitracin [From Neosporin] Allergy (Verified 04/27/18 18:40) balsam lilia [Balsam Lilia] Allergy (Verified 04/27/18 18:40) benzyl alcohol Allergy (Verified 04/27/18 18:40) cortisone Allergy (Verified 04/27/18 18:40) epoxy resin Allergy (Verified 04/27/18 18:40) ethylenediamine Allergy (Verified 04/27/18 18:40) formaldehyde Allergy (Verified 04/27/18 18:40) gramicidin D [From Neosporin] Allergy (Verified 04/27/18 18:40) neomycin sulfate [From Neosporin] Allergy (Verified 04/27/18 18:40) nystatin Allergy (Verified 04/27/18 18:40) polyethylene glycol Allergy (Verified 04/27/18 18:40) polymyxin B sulfate [From Neosporin] Allergy (Verified 04/27/18 18:40) propylene glycol Allergy (Verified 04/27/18 18:40) rosin Allergy (Verified 04/27/18 18:40) terconazole [From Terazol 3] Allergy (Verified 04/27/18 18:40) tioconazole [From Monistat 1 (tioconazole)] Allergy (Verified 04/27/18 18:40) ultrasound coupling medium Allergy (Verified 04/27/18 18:40) ANTIHYSTAMINES Allergy (Uncoded 04/27/18 18:40) CHROME Allergy (Uncoded 04/27/18 18:40) DIHYDROCHLORIDE Allergy (Uncoded 04/27/18 18:40) GREEN SOAP Allergy (Uncoded 04/27/18 18:40) STAINLESS STEEL Allergy (Uncoded 04/27/18 18:40) TAPE Allergy (Uncoded 04/27/18 18:40) Past Medical History - Social History Chew tobacco use (# tins/day): No Drug Abuse: None - Past Medical History Cardiac Medical History: Reports: Hx Atrial Fibrillation, Hx Coronary Artery Disease, Hx Hypercholesterolemia, Hx Hypertension Denies: Hx Heart Attack Pulmonary Medical History: Reports: Hx Asthma - POSSIBLY, NO CURRENT MEDS, Hx Pneumonia - COUPLE YRS AGO Denies: Hx Bronchitis, Hx COPD Neurological Medical History: Denies: Hx Cerebrovascular Accident, Hx Seizures Renal/ Medical History: Denies: Hx Peritoneal Dialysis GI Medical History: Reports: Hx Irritable Bowel Musculoskeltal Medical History: Reports Hx Arthritis - GENERALIZED Past Surgical History: Reports: Hx Orthopedic Surgery - Immunizations Hx Diphtheria, Pertussis, Tetanus Vaccination: Yes History of Influenza Vaccine for 03/2017 - 08/2017 Season: Yes Influenza Administration Date for 03/2017 - 08/2017 Season: 03/31/17 Physical Exam - Vital signs Vitals: Temp Pulse Resp BP Pulse Ox 97.8 F 88 18 139/82 H 99 04/27/18 18:51 04/27/18 18:51 04/27/18 18:51 04/27/18 18:51 04/27/18 18:51 Course - Vital Signs Vital signs: Temp Pulse Resp BP Pulse Ox 97.8 F 88 18 139/82 H 99 04/27/18 19:39 04/27/18 19:39 04/27/18 19:39 04/27/18 19:39 04/27/18 19:39 Doctor's Discharge - Discharge Referrals: PAM HAJI MD [Primary Care Provider] - Follow up as needed
--- NOTE | 2018-04-27 20:55 | ER Document Report ---
ED General - General Chief Complaint: Abdominal Pain >50 Stated Complaint: ABDOMINAL PAIN/HEADACHE Time Seen by Provider: 04/27/18 19:47 Notes: 67-year-old lady with A. fib on Coumadin presents with left-sided abdominal pain onset 2 days ago, states that it has been worsening but says it also she ate too big max on the way to the emergency department tonight. She has no vomiting or diarrhea. Never had this pain before. She has a history of intermittent A. fib and was most recently seen after having some neck pain and chest pressure at [place] emergency department during which she was told imaging was fine and she was discharged. Has not had recurrence of chest pain or palpitations or neck pain since then. Patient has significant life stressors just moved here with no primary care displaced by [place] living with family which there is significant strife. TRAVEL OUTSIDE OF THE U.S. IN LAST 30 DAYS: No - Related Data Allergies/Adverse Reactions: bacitracin [From Neosporin] Allergy (Verified 04/27/18 18:40) balsam dixon [Balsam [place]] Allergy (Verified 04/27/18 18:40) benzyl alcohol Allergy (Verified 04/27/18 18:40) cortisone Allergy (Verified 04/27/18 18:40) epoxy resin Allergy (Verified 04/27/18 18:40) ethylenediamine Allergy (Verified 04/27/18 18:40) formaldehyde Allergy (Verified 04/27/18 18:40) gramicidin D [From Neosporin] Allergy (Verified 04/27/18 18:40) neomycin sulfate [From Neosporin] Allergy (Verified 04/27/18 18:40) nystatin Allergy (Verified 04/27/18 18:40) polyethylene glycol Allergy (Verified 04/27/18 18:40) polymyxin B sulfate [From Neosporin] Allergy (Verified 04/27/18 18:40) propylene glycol Allergy (Verified 04/27/18 18:40) rosin Allergy (Verified 04/27/18 18:40) terconazole [From Terazol 3] Allergy (Verified 04/27/18 18:40) tioconazole [From Monistat 1 (tioconazole)] Allergy (Verified 04/27/18 18:40) ultrasound coupling medium Allergy (Verified 04/27/18 18:40) ANTIHYSTAMINES Allergy (Uncoded 04/27/18 18:40) CHROME Allergy (Uncoded 04/27/18 18:40) DIHYDROCHLORIDE Allergy (Uncoded 04/27/18 18:40) GREEN SOAP Allergy (Uncoded 04/27/18 18:40) STAINLESS STEEL Allergy (Uncoded 04/27/18 18:40) TAPE Allergy (Uncoded 04/27/18 18:40) Past Medical History - Social History Smoking Status: Never Smoker Chew tobacco use (# tins/day): No Drug Abuse: None Family History: Reviewed & Not Pertinent Patient has suicidal ideation: No Patient has homicidal ideation: No - Past Medical History Cardiac Medical History: Reports: Hx Atrial Fibrillation, Hx Coronary Artery Disease, Hx Hypercholesterolemia, Hx Hypertension Denies: Hx Heart Attack Pulmonary Medical History: Reports: Hx Asthma - POSSIBLY, NO CURRENT MEDS, Hx Pneumonia - COUPLE YRS AGO Denies: Hx Bronchitis, Hx COPD Neurological Medical History: Denies: Hx Cerebrovascular Accident, Hx Seizures Renal/ Medical History: Denies: Hx Peritoneal Dialysis GI Medical History: Reports: Hx Irritable Bowel Musculoskeletal Medical History: Reports Hx Arthritis - GENERALIZED Past Surgical History: Reports: Hx Orthopedic Surgery - Immunizations Hx Diphtheria, Pertussis, Tetanus Vaccination: Yes Review of Systems - Review of Systems Notes: REVIEW OF SYSTEMS GEN: Denies fever, chills, weight loss ENT: Denies sore throat, nasal discharge, ear pain EYES: Denies blurry vision, eye pain, discharge CV: Denies chest pain, palpitations, edema RESP: Denies cough, shortness of breath, wheezing GI: Left-sided abdominal pain MSK: Denies joint pain/swelling, edema, SKIN: Denies rash, skin lesions LYMPH: Denies swollen glands/lymph nodes NEURO: Denies headache, focal weakness or numbness, dizziness PSYCH: Denies depression, suicidal or homicidal ideation PHYSICAL EXAMINATION General: No acute distress, well-nourished Head: Atraumatic, normocephalic ENT: Mouth normal, oropharynx moist, no exudates or tonsillar enlargement Eyes: Conjunctiva normal, pupils equal, lids normal Neck: No JVD, supple, no guarding CVS: Normal rate, regular rhythm, no murmurs Resp: No resp distress, equal and normal breath sounds bilaterally GI: Obese. Nondistended, soft, mild left lower quadrant tenderness to palpation , no rebound or guarding Ext: No deformities, no edema, normal range of motion in upper and lower ext Back: No CVA or midline TTP Skin: No rash, warm Lymphatic: No lymphadeopathy noted Neuro: Awake, alert. Face symmetric. GCS 15. Physical Exam - Vital signs Vitals: Temp Pulse Resp BP Pulse Ox 97.8 F 88 18 139/82 H 99 04/27/18 18:51 04/27/18 18:51 04/27/18 18:51 04/27/18 18:51 04/27/18 18:51 Course - Re-evaluation Re-evalutation: 04/27/18 20:54 Patient presents with left lower abdominal pain and mild tenderness with normal vital signs in the setting of intermittent A. fib anticoagulated. There is been no trauma. Will check for UTI, diverticulitis. This not likely reflect acute ischemic bowel given the time course, the fact that she is not vomiting, ate [address] here, and does not have pain out of proportion to physical exam. She says that her INR was checked and it was 2-1/2-3 2 days ago. We will check it again. - Vital Signs Vital signs: Temp Pulse Resp BP Pulse Ox 97.8 F 88 18 139/82 H 99 04/27/18 19:39 04/27/18 19:39 04/27/18 19:39 04/27/18 19:39 04/27/18 19:39 - Laboratory Result Diagrams: 04/27/18 22:00 04/27/18 22:00 Laboratory results interpreted by me: 04/27/18 04/27/18 04/27/18 20:20 22:00 22:00 PT 27.7 H Glucose 162 H Calcium 10.4 H Urine Glucose (UA) >=500 H Urine Ascorbic Acid 40 H Discharge - Discharge Clinical Impression: Abdominal pain, left lower quadrant Condition: Good Disposition: HOME, SELF-CARE Instructions: Abdominal Pain ([facility]) Additional Instructions: These follow-up with primary care regarding her anticoagulation. Your heart was normal tonight, you were not in atrial fibrillation, and your blood is adequately thinned out. Referrals: PAM HAJI MD [ACTIVE STAFF] - Follow up as needed [facility] [Outside] - Follow up as needed
[2018-04-27 21:06] LABS: APPEARANCE,URINE SLIGHTLY-CLOUDY; BILIRUBIN,URINE NEGATIVE (NEGATIVE); COLOR,URINE YELLOW; GLUCOSE, URINE >=500 mg/dL (NEGATIVE); KETONES,URINE NEGATIVE (NEGATIVE); LEUKOCYTE ESTERASE,URINE NEGATIVE (NEGATIVE); NITRITE,URINE NEGATIVE (NEGATIVE); PROTEIN,URINE NEGATIVE (NEGATIVE); URINE SPECIFIC GRAVITY 1.023; UROBILINOGEN,URINE NEGATIVE mg/dL (<2.0)
--- NOTE | 2018-04-27 21:54 | EKG REPORT ---
SEVERITY:- NORMAL ECG - SINUS RHYTHM : Confirmed by: Stacey Haider MD 27-Apr-2018 21:53:32
[2018-04-27 22:10] LABS: HEMATOCRIT 40.3 % (36.0-47.0); HEMOGLOBIN 13.7 g/dL (12.0-15.5); MEAN CORPUSCULAR HEMOGLOBIN 29.6 pg (27.0-33.4); MEAN CORPUSCULAR VOLUME 87 fl (80-97); PLATELET COUNT 302 10^3/uL (150-450); RED BLOOD COUNT 4.62 10^6/uL (3.72-5.28); RED CELL DISTRIBUTION WIDTH 13.6 % (11.5-14.0); WHITE BLOOD COUNT 10.2 10^3/uL (4.0-10.5)
[2018-04-27] MEDS ORDERED: ACETAMINOPHEN 325 MG TABLET PO ONE (22:10)
[2018-04-27 22:16] LABS: INTERNATIONAL RATION (INR) 2.45; PROTHROMBIN TIME 27.7 SEC (11.4-15.4)
[2018-04-27 22:22] LABS: ALANINE AMINOTRANSFERASE 30 U/L (9-52); ALBUMIN 4.2 g/dL (3.5-5.0); ALKALINE PHOSPHATASE 45 U/L (38-126); ANION GAP 12 (5-19); ASPARTATE AMINO TRANSFERASE 25 U/L (14-36); BILIRUBIN,DIRECT 0.1 mg/dL (0.0-0.4); BILIRUBIN,TOTAL 0.2 mg/dL (0.2-1.3); BLOOD UREA NITROGEN 16 mg/dL (7-20); CALCIUM 10.4 mg/dL (8.4-10.2); CARBON DIOXIDE 29 mmol/L (22-30); CHLORIDE 102 mmol/L (98-107); GLUCOSE 162 mg/dL (75-110); POTASSIUM 4.4 mmol/L (3.6-5.0); SODIUM 143.4 mmol/L (137-145); TOTAL PROTEIN 7.2 g/dL (6.3-8.2)
--- NOTE | 2018-04-27 23:13 | RADIOLOGY REPORT (SQ) ---
EXAM DESCRIPTION: CT ABDOMEN PELVIS WITH IV CONTRAST COMPLETED DATE/TME: 04/27/2018 20:52 CLINICAL HISTORY: 67 years, Female, divertic- also has AF, check bowel viability All CT scanners at this facility use dose modulation, iterative reconstruction, and/or weight based dosing when appropriate to reduce radiation dose to as low as reasonably achievable (ALARA). Findings: Visualized lung bases are within normal limits. Liver, spleen, pancreas, gallbladder, adrenal glands and kidneys are within normal limits. No hydronephrosis or biliary dilatation. No dilated loops of bowel to suggest obstruction. Mild amount of stool in the colon. No free fluid or free air. Mild sigmoid diverticulosis. Bladder is unremarkable. Gynecologic organs are unremarkable. No abdominal or pelvic lymphadenopathy. Abdominal aorta is mildly calcified without aneurysm. IMPRESSION: No acute disease.
[2018-04-27 23:29] VITALS: BP 141/70
== END 2018-04-27 23:30 | disposition home or self-care (01) ==
LOC: ER 18:37
DX: R10.32 Left lower quadrant pain (principal); I48.91 Unspecified atrial fibrillation; Z79.01 Long term (current) use of anticoagulants; I25.10 Atherosclerotic heart disease of native coronary artery without angina pectoris; I10 Essential (primary) hypertension; Z88.3 Allergy status to other anti-infective agents; Z88.8 Allergy status to other drugs, medicaments and biological substances; Z91.041 Radiographic dye allergy status; Z91.048 Other nonmedicinal substance allergy status; Z87.19 Personal history of other diseases of the digestive system
CPT/HCPCS: 93005; 99285; 36415; 85027; 85610; 80053; 81001; 71046; 74177; 93010; A9270

== ENCOUNTER 2018-09-25 13:28 | Emergency (ER) | payer MEDICARE, BC ==
[2018-09-25] MEDS ORDERED: NORMAL SALINE 1000 ML 1,000 ML IV ONE (16:48)
--- NOTE | 2018-09-25 16:50 | ER Document Report ---
ED Medical Screen (RME) - General Chief Complaint: Nausea/Vomiting/Diarrhea Stated Complaint: WEAKNESS Time Seen by Provider: 09/25/18 16:47 Mode of Arrival: Ambulatory Information source: Patient TRAVEL OUTSIDE OF THE [place] IN LAST 30 DAYS: No - HPI Patient complains to provider of: shaking. chills Onset: Yesterday - pt [place] hospital [place] of state with sepsis with similar symptoms as before-- shaking, chills, N/V/D - Related Data Allergies/Adverse Reactions: bacitracin [From Neosporin] Allergy (Verified 09/25/18 16:42) balsam lilia [Balsam [place]] Allergy (Verified 09/25/18 16:42) benzyl alcohol Allergy (Verified 09/25/18 16:42) cortisone Allergy (Verified 09/25/18 16:42) epoxy resin Allergy (Verified 09/25/18 16:42) ethylenediamine Allergy (Verified 09/25/18 16:42) formaldehyde Allergy (Verified 09/25/18 16:42) gramicidin D [From Neosporin] Allergy (Verified 09/25/18 16:42) neomycin sulfate [From Neosporin] Allergy (Verified 09/25/18 16:42) nystatin Allergy (Verified 09/25/18 16:42) polyethylene glycol Allergy (Verified 09/25/18 16:42) polymyxin B sulfate [From Neosporin] Allergy (Verified 09/25/18 16:42) propylene glycol Allergy (Verified 09/25/18 16:42) rosin Allergy (Verified 09/25/18 16:42) terconazole [From Terazol 3] Allergy (Verified 09/25/18 16:42) tioconazole [From Monistat 1 (tioconazole)] Allergy (Verified 09/25/18 16:42) ultrasound coupling medium Allergy (Verified 09/25/18 16:42) ANTIHYSTAMINES Allergy (Uncoded 09/25/18 16:42) CHROME Allergy (Uncoded 09/25/18 16:42) DIHYDROCHLORIDE Allergy (Uncoded 09/25/18 16:42) GREEN SOAP Allergy (Uncoded 09/25/18 16:42) STAINLESS STEEL Allergy (Uncoded 09/25/18 16:42) TAPE Allergy (Uncoded 09/25/18 16:42) Past Medical History - Past Medical History Cardiac Medical History: Reports: Hx Atrial Fibrillation, Hx Coronary Artery Disease, Hx Hypercholesterolemia, Hx Hypertension Denies: Hx Heart Attack Pulmonary Medical History: Reports: Hx Asthma - POSSIBLY, NO CURRENT MEDS, Hx Pneumonia - COUPLE YRS AGO Denies: Hx Bronchitis, Hx COPD Neurological Medical History: Denies: Hx Cerebrovascular Accident, Hx Seizures Renal/ Medical History: Denies: Hx Peritoneal Dialysis GI Medical History: Reports: Hx Irritable Bowel Musculoskeltal Medical History: Reports Hx Arthritis - GENERALIZED Past Surgical History: Reports: Hx Orthopedic Surgery - Immunizations Hx Diphtheria, Pertussis, Tetanus Vaccination: Yes History of Influenza Vaccine for 03/2017 - 08/2017 Season: Yes Influenza Administration Date for 03/2017 - 08/2017 Season: 03/31/17 Physical Exam - Vital signs Vitals: Temp Pulse Resp BP Pulse Ox 98.6 F 91 18 98/61 L 97 09/25/18 14:05 09/25/18 14:05 09/25/18 14:05 09/25/18 14:05 09/25/18 14:05 Course - Vital Signs Vital signs: Temp Pulse Resp BP Pulse Ox 98.6 F 91 18 98/61 L 97 09/25/18 14:05 09/25/18 14:05 09/25/18 14:05 09/25/18 14:05 09/25/18 14:05
[2018-09-25 17:29] LABS: ABSOLUTE EOSINOPHILS # (AUTO) 0.5 10^3/uL (0.0-0.6); ABSOLUTE LYMPHOCYTES (AUTO) 1.2 10^3/uL (0.5-4.7); ABSOLUTE MONOCYTES (AUTO) 0.6 10^3/uL (0.1-1.4); ABSOLUTE NEUT (AUTO) 14.7 10^3/uL (1.7-8.2); BASOPHILS % (AUTO) 0.1 % (0-2); EOSINOPHILS % (AUTO) 2.9 % (0-6); HEMATOCRIT 39.9 % (36.0-47.0); HEMOGLOBIN 13.6 g/dL (12.0-15.5); LYMPHOCYTES % (AUTO) 6.8 % (13-45); MEAN CORPUSCULAR HEMOGLOBIN 29.7 pg (27.0-33.4); MEAN CORPUSCULAR HGB CONC 34.1 g/dL (32.0-36.0); MEAN CORPUSCULAR VOLUME 87 fl (80-97); MONOCYTES % (AUTO) 3.7 % (3-13); PLATELET COUNT 337 10^3/uL (150-450); RED BLOOD COUNT 4.58 10^6/uL (3.72-5.28); RED CELL DISTRIBUTION WIDTH 14.1 % (11.5-14.0); SEGMENTED NEUTROPHILS % (AUTO) 86.5 % (42-78); TOTAL CELLS COUNTED % (AUTO) 100 %
[2018-09-25 17:51] LABS: ALANINE AMINOTRANSFERASE 25 U/L (9-52); ALBUMIN 3.8 g/dL (3.5-5.0); ALKALINE PHOSPHATASE 38 U/L (38-126); ANION GAP 13 (5-19); ASPARTATE AMINO TRANSFERASE 16 U/L (14-36); BILIRUBIN,DIRECT 0.2 mg/dL (0.0-0.4); BILIRUBIN,TOTAL 0.4 mg/dL (0.2-1.3); BLOOD UREA NITROGEN 19 mg/dL (7-20); CARBON DIOXIDE 21 mmol/L (22-30); CHLORIDE 100 mmol/L (98-107); GLUCOSE 121 mg/dL (75-110); SODIUM 134.4 mmol/L (137-145); TOTAL PROTEIN 6.4 g/dL (6.3-8.2)
[2018-09-25 17:54] LABS: POTASSIUM 3.8 mmol/L (3.6-5.0)
--- NOTE | 2018-09-25 18:00 | RADIOLOGY REPORT (SQ) ---
EXAM DESCRIPTION: CHEST 2 VIEWS COMPLETED DATE/TIME: 09/25/2018 5:31 pm REASON FOR STUDY: fever; cough COMPARISON: 04/27/2018 EXAM PARAMETERS: NUMBER OF VIEWS: two views TECHNIQUE: Digital Frontal and Lateral radiographic views of the chest acquired. RADIATION DOSE: NA LIMITATIONS: none FINDINGS: LUNGS AND PLEURA: No opacities, masses or pneumothorax. No pleural effusion. MEDIASTINUM AND HILAR STRUCTURES: No masses or contour abnormalities. HEART AND VASCULAR STRUCTURES: Heart normal size. No evidence for failure. BONES: No acute findings. HARDWARE: None in the chest. OTHER: No other significant finding. IMPRESSION: NO ACUTE RADIOGRAPHIC FINDING IN THE CHEST. TECHNICAL DOCUMENTATION: JOB ID: [id number] [employer]- All Rights Reserved Reading location - IP/workstation name: [email or web address]
[2018-09-25 21:26] LABS: APPEARANCE,URINE SLIGHTLY-CLOUDY; BILIRUBIN,URINE NEGATIVE (NEGATIVE); COLOR,URINE YELLOW; GLUCOSE, URINE NEGATIVE (NEGATIVE); KETONES,URINE NEGATIVE (NEGATIVE); LEUKOCYTE ESTERASE,URINE NEGATIVE (NEGATIVE); NITRITE,URINE NEGATIVE (NEGATIVE); PROTEIN,URINE NEGATIVE (NEGATIVE); URINE SPECIFIC GRAVITY 1.006; UROBILINOGEN,URINE NEGATIVE mg/dL (<2.0)
[2018-09-25 22:30] LABS: A TYPE INFLUENZA AG NEGATIVE (NEGATIVE); B INFLUENZA AG NEGATIVE (NEGATIVE)
[2018-09-26 00:10] VITALS: BP 118/57
--- NOTE | 2018-09-26 00:11 | ER Document Report ---
ED General - General Chief Complaint: Nausea/Vomiting/Diarrhea Stated Complaint: WEAKNESS Time Seen by Provider: 09/25/18 16:47 Primary Care Provider: DERIK DIETZ PA-C [Primary Care Provider] - Follow up tomorrow Mode of Arrival: Ambulatory Notes: Patient is a 68-year-old female with past medical history of hypertension, hyperlipidemia, presents complaining of 2-3 days diarrhea, nausea, body aches, and shivering. States that her symptoms started gradually, have been relatively unchanged since onset. Described as being moderate to severe nature. Nothing seems to improve or worsen her symptoms. States she has had similar symptoms in the past when she was found to have occult bacteremia of undetermined origin when she lived in [place]. She has not recorded a fever at home. Saw her primary care doctor 2 days ago regarding this issue, was diagnosed as a urinary tract infection and started on Macrobid. She has been able to tolerate oral intake without difficulty. She denies chest pain, shortness of breath, cough or focal abdominal pain. TRAVEL OUTSIDE OF THE [place] IN LAST 30 DAYS: No - Related Data Allergies/Adverse Reactions: bacitracin [From Neosporin] Allergy (Verified 09/25/18 16:42) balsam dixon [Balsam [place]] Allergy (Verified 09/25/18 16:42) benzyl alcohol Allergy (Verified 09/25/18 16:42) cortisone Allergy (Verified 09/25/18 16:42) epoxy resin Allergy (Verified 09/25/18 16:42) ethylenediamine Allergy (Verified 09/25/18 16:42) formaldehyde Allergy (Verified 09/25/18 16:42) gramicidin D [From Neosporin] Allergy (Verified 09/25/18 16:42) neomycin sulfate [From Neosporin] Allergy (Verified 09/25/18 16:42) nystatin Allergy (Verified 09/25/18 16:42) polyethylene glycol Allergy (Verified 09/25/18 16:42) polymyxin B sulfate [From Neosporin] Allergy (Verified 09/25/18 16:42) propylene glycol Allergy (Verified 09/25/18 16:42) rosin Allergy (Verified 09/25/18 16:42) terconazole [From Terazol 3] Allergy (Verified 09/25/18 16:42) tioconazole [From Monistat 1 (tioconazole)] Allergy (Verified 09/25/18 16:42) ultrasound coupling medium Allergy (Verified 09/25/18 16:42) ANTIHYSTAMINES Allergy (Uncoded 09/25/18 16:42) CHROME Allergy (Uncoded 09/25/18 16:42) DIHYDROCHLORIDE Allergy (Uncoded 09/25/18 16:42) GREEN SOAP Allergy (Uncoded 09/25/18 16:42) STAINLESS STEEL Allergy (Uncoded 09/25/18 16:42) TAPE Allergy (Uncoded 09/25/18 16:42) Past Medical History - General Information source: Patient - Social History Smoking Status: Never Smoker Chew tobacco use (# tins/day): No Frequency of alcohol use: None Drug Abuse: None Lives with: Family Family History: Reviewed & Not Pertinent Patient has suicidal ideation: No Patient has homicidal ideation: No - Past Medical History Cardiac Medical History: Reports: Hx Atrial Fibrillation, Hx Coronary Artery Disease, Hx Hypercholesterolemia, Hx Hypertension Denies: Hx Heart Attack Pulmonary Medical History: Reports: Hx Asthma - POSSIBLY, NO CURRENT MEDS, Hx Pneumonia - COUPLE YRS AGO Denies: Hx Bronchitis, Hx COPD Neurological Medical History: Denies: Hx Cerebrovascular Accident, Hx Seizures Renal/ Medical History: Denies: Hx Peritoneal Dialysis GI Medical History: Reports: Hx Irritable Bowel Musculoskeletal Medical History: Reports Hx Arthritis - GENERALIZED Past Surgical History: Reports: Hx Orthopedic Surgery - Immunizations Hx Diphtheria, Pertussis, Tetanus Vaccination: Yes Review of Systems - Review of Systems Notes: Constitutional: Negative for fever. Positive for rigors HENT: Negative for sore throat. Eyes: Negative for visual changes. Cardiovascular: Negative for chest pain. Respiratory: Negative for shortness of breath. Gastrointestinal: Negative for abdominal pain, positive for nausea and diarrhea Genitourinary: Negative for dysuria. Musculoskeletal: Negative for back pain. Skin: Negative for rash. Neurological: Negative for headaches, weakness or numbness. 10 point ROS negative except as marked above and in HPI. Physical Exam - Vital signs Vitals: Temp Pulse Resp BP Pulse Ox 98.6 F 91 18 98/61 L 97 09/25/18 14:05 09/25/18 14:05 09/25/18 14:05 09/25/18 14:05 09/25/18 14:05 Interpretation: Hypotensive - Results on my assessment Notes: PHYSICAL EXAMINATION: GENERAL: Well-appearing, well-nourished and in no acute distress. HEAD: Atraumatic, normocephalic. EYES: Pupils equal round and reactive to light, extraocular movements intact, sclera anicteric, conjunctiva are normal. ENT: nares patent, oropharynx clear without exudates. Moist mucous membranes. NECK: Normal range of motion, supple without lymphadenopathy LUNGS: Breath sounds clear to auscultation bilaterally and equal. No wheezes rales or rhonchi. HEART: Regular rate and rhythm without murmurs ABDOMEN: Soft, nontender, normoactive bowel sounds. No guarding, no rebound. No masses appreciated. EXTREMITIES: Normal range of motion, no pitting or edema. No cyanosis. NEUROLOGICAL: No focal neurological deficits. Moves all extremities spontaneously and on command. PSYCH: Normal mood, normal affect. SKIN: Warm, Dry, normal turgor, no rashes or lesions noted. Course - Re-evaluation Re-evalutation: 09/26/18 00:10 Patient presents with 3-4 days of nausea, vomiting, diarrhea, body aches and states that she feels somewhat similar to when she has been bacteremic in the past. The patient is otherwise extremely well in appearance, very talkative, laughing and joking with me during exam. Her labs show nonspecific leukocytosis, mild acute kidney injury. Otherwise unremarkable. No obvious source for leukocytosis or the patient's constitutional symptoms. Urinalysis is clear, chest x-ray is clear, influenza testing is negative. She has no focal abdominal tenderness on examination. No evidence of pharyngitis. Her primary care doctor did start her on nitrofurantoin 2 days ago apparently due to concern of urinary tract infection which could have sterilized the urine. Patient blood pressure was initially soft upon arrival although normalized after 1 L of IV fluids. Blood cultures and urine cultures have been sent. I have informed the patient that we will contact her should these become positive. At this point I do not see an obvious indication for hospitalization given the patient's well appearance, normalization of her vitals, as well as absence of any meaningful plan of care in the hospital other than to monitor the patient. I would not start empiric antibiotics at this point. Patient is agreement with discharge home. States clear understanding that she needs to return to the emergency department for any new or worsening symptoms. At this time will discharge with return precautions and follow-up recommendations. Verbal discharge instructions given a the bedside and opportunity for questions given. Medication warnings reviewed. Patient is in agreement with this plan and has verbalized understanding of return precautions and the need for primary care follow-up in the next 24-72 hours. - Vital Signs Vital signs: Temp Pulse Resp BP Pulse Ox 97.4 F 74 18 118/57 L 99 09/26/18 00:09 09/26/18 00:09 09/26/18 00:09 09/26/18 00:09 09/26/18 00:09 - Laboratory Result Diagrams: 09/25/18 17:12 09/25/18 17:12 Laboratory results interpreted by me: 09/25/18 09/25/18 17:12 17:12 WBC 17.0 H RDW 14.1 H Seg Neutrophils % 86.5 H Lymphocytes % 6.8 L Absolute Neutrophils 14.7 H Sodium 134.4 L Carbon Dioxide 21 L Creatinine 1.51 H Est GFR ( Amer) 41 L Est GFR (Non-Af Amer) 34 L Glucose 121 H - Diagnostic Test Radiology reviewed: Image reviewed, Reports reviewed Radiology results interpreted by me: 09/26/18 00:30 Chest x-ray: No acute infiltrate or pneumothorax Discharge - Discharge Clinical Impression: Body aches, Nausea vomiting and diarrhea Leukocytosis Qualifiers: Leukocytosis type: unspecified Qualified Code(s): D72.829 - Elevated white blo od cell count, unspecified Condition: Good Disposition: HOME, SELF-CARE Additional Instructions: The exact cause of your symptoms is uncertain. As we discussed, given the uncertain cause of your symptoms, if you have any new or worsening symptoms you should have a very low threshold to return to the emergency department. Please follow-up with your primary doctor within the next 24-48 hours. Specifically if you develop a fever greater than 100.4 F, or unable to keep fluids down, develop severe abdominal pain, pass out, or have any other symptoms that are worrisome to you please return immediately. Referrals: DERIK DIETZ PA-C [Primary Care Provider] - Follow up tomorrow
== END 2018-09-26 01:14 | disposition home or self-care (01) ==
LOC: ER 13:28
DX: R11.2 Nausea with vomiting, unspecified (principal); N39.0 Urinary tract infection, site not specified; N17.9 Acute kidney failure, unspecified; R19.7 Diarrhea, unspecified; R52 Pain, unspecified; D72.829 Elevated white blood cell count, unspecified; I10 Essential (primary) hypertension; I25.10 Atherosclerotic heart disease of native coronary artery without angina pectoris; Z88.8 Allergy status to other drugs, medicaments and biological substances; Z88.3 Allergy status to other anti-infective agents; Z91.048 Other nonmedicinal substance allergy status
CPT/HCPCS: 99284; 96360; 96361; 51701; 36415; 87040; 85025; 80053; 81001; 87804; 71046; J7030

== ENCOUNTER 2018-09-26 19:03 | Inpatient (IN) | payer MEDICARE, BC ==
--- NOTE | 2018-09-26 19:25 | RADIOLOGY REPORT (SQ) ---
EXAM DESCRIPTION: CHEST SINGLE VIEW COMPLETED DATE/TIME: 09/26/2018 7:21 pm REASON FOR STUDY: cp COMPARISON: 09/25/2018. EXAM PARAMETERS: NUMBER OF VIEWS: One view. TECHNIQUE: Single frontal radiographic view of the chest acquired. RADIATION DOSE: NA LIMITATIONS: None. FINDINGS: LUNGS AND PLEURA: No opacities, masses or pneumothorax. No pleural effusion. MEDIASTINUM AND HILAR STRUCTURES: No masses. Contour normal. HEART AND VASCULAR STRUCTURES: Heart normal in size. Normal vasculature. BONES: No acute findings. Degenerative changes in the spine. HARDWARE: None in the chest. OTHER: No other significant finding. IMPRESSION: NO ACUTE RADIOGRAPHIC FINDING IN THE CHEST. TECHNICAL DOCUMENTATION: JOB ID: [id number] [employer]- All Rights Reserved Reading location - IP/workstation name: [email or web address]
[2018-09-26] MEDS ORDERED: DILTIAZEM HCL INJ 25 MG/5 ML VIAL IV ONE (19:39)
[2018-09-26 19:40] LABS: HEMATOCRIT 42.2 % (36.0-47.0); HEMOGLOBIN 14.3 g/dL (12.0-15.5); MEAN CORPUSCULAR HEMOGLOBIN 29.9 pg (27.0-33.4); MEAN CORPUSCULAR VOLUME 88 fl (80-97); PLATELET COUNT 353 10^3/uL (150-450); RED CELL DISTRIBUTION WIDTH 14.3 % (11.5-14.0); WHITE BLOOD COUNT 15.4 10^3/uL (4.0-10.5)
[2018-09-26 19:54] LABS: ALANINE AMINOTRANSFERASE 22 U/L (9-52); ALBUMIN 3.4 g/dL (3.5-5.0); ALKALINE PHOSPHATASE 38 U/L (38-126); ANION GAP 11 (5-19); ASPARTATE AMINO TRANSFERASE 18 U/L (14-36); BILIRUBIN,DIRECT 0.2 mg/dL (0.0-0.4); BILIRUBIN,TOTAL 0.3 mg/dL (0.2-1.3); BLOOD UREA NITROGEN 14 mg/dL (7-20); CALCIUM 10.2 mg/dL (8.4-10.2); CARBON DIOXIDE 23 mmol/L (22-30); CHLORIDE 106 mmol/L (98-107); CREATINE KINASE 72 U/L (30-135); GLUCOSE 139 mg/dL (75-110); POTASSIUM 3.4 mmol/L (3.6-5.0); SODIUM 139.6 mmol/L (137-145); TOTAL PROTEIN 6.1 g/dL (6.3-8.2)
[2018-09-26] MEDS: DILTIAZEM HCL/D5W 125 MG/125 ML RTUINJ IV PRN (19:55)
[2018-09-26 19:56] LABS: ABSOLUTE LYMPHOCYTES# (MANUAL) 0.8 10^3/uL (0.5-4.7); ABSOLUTE MONOCYTES # (MANUAL) 0.2 10^3/uL (0.1-1.4); ABSOLUTE NEUTROPHILS# (MANUAL) 13.9 10^3/uL (1.7-8.2); BAND NEUTROPHILS % (MANUAL) 4 % (3-5); BASOPHILS % (MANUAL) 0 % (0-2); EOSINOPHILS % (MANUAL) 4 % (0-6); LYMPHOCYTES % (MANUAL) 5 % (13-45); MONOCYTES % (MANUAL) 1 % (3-13); SEGMENTED NEUTROPHILS % (MAN) 86 % (42-78); TOTAL CELLS COUNTED 100
[2018-09-26 20:00] LABS: ANISOCYTOSIS SLIGHT; HYPOCHROMASIA SLIGHT; PLATELET CLUMPS PRESENT
[2018-09-26 20:03] LABS: INTERNATIONAL RATION (INR) 0.98; PROTHROMBIN TIME 13.5 SEC (11.4-15.4)
[2018-09-26 20:05] LABS: CREATINE KINASE MB 0.88 ng/mL (<4.55)
[2018-09-26 20:11] LABS: TROPONIN I < 0.012 ng/mL
[2018-09-26 20:38] LABS: APPEARANCE,URINE SLIGHTLY-CLOUDY; BILIRUBIN,URINE NEGATIVE (NEGATIVE); COLOR,URINE YELLOW; GLUCOSE, URINE NEGATIVE (NEGATIVE); KETONES,URINE NEGATIVE (NEGATIVE); LEUKOCYTE ESTERASE,URINE NEGATIVE (NEGATIVE); NITRITE,URINE NEGATIVE (NEGATIVE); PROTEIN,URINE NEGATIVE (NEGATIVE); URINE SPECIFIC GRAVITY 1.012; UROBILINOGEN,URINE NEGATIVE mg/dL (<2.0)
[2018-09-26 20:53] LABS: VENOUS BLOOD BASE EXCESS -1.7 mmol/L; VENOUS BLOOD HCO3 22.4 mmol/L (20-32); VENOUS BLOOD PCO2 36.1 mmHg (35-63); VENOUS BLOOD PH 7.41 (7.30-7.42)
[2018-09-26] MEDS ORDERED: NORMAL SALINE 1000 ML 1,000 ML IV ONE (21:21)
[2018-09-26] MEDS ORDERED: PIPERACILLIN/TAZOBACTAM 3.375 GM VIAL IV ONE (21:59)
--- NOTE | 2018-09-26 22:48 | ER Document Report ---
Entered by MADDY VELOZ SCRIBE 09/26/181955 Acting as scribe for:RUIZ WOLFE DO ED General - General Chief Complaint: Chest Pain Stated Complaint: WEAKNESS Time Seen by Provider: 09/26/18 19:10 Primary Care Provider: DERIK DIETZ PA-C [Primary Care Provider] - Follow up as needed Mode of Arrival: Ambulatory Information source: Patient Notes: Patient is a 68-year-old female with afib, HTN, CAD, hyperlipidemia presents to the emergency department via EMS complaining of of shakiness, diaphoresis and body aches onset a few days ago. Patient states that she presented to the emergency department yesterday complaining of shivering, diarrhea, nausea, vomiting and was discharged home after having blood work done which showed mild acute kidney injury and nonspecific leukocytosis. Patient states she returned today due to shakiness, diaphoresis and generalized body aches. She denies any vomiting or diarrhea today or blood in stool. According to nurses note, patient had a heart rate in the 180s and was given 50 mg of Cardizem by EMS. Patient reports she has a history of UTIs (most recent in 08/2018, urine culture grew E.coli in 06/2018) and frequent episodes of urinary and fecal incontinence after having a colonoscopy in May 2018 but this incontinence resolved by the end of July.. She is currently prescribed nitrofuratoin, metoprolol, losartan, Zyrtec, Eliquis and fenofibrate. TRAVEL OUTSIDE OF THE [place] IN LAST 30 DAYS: No - Related Data Allergies/Adverse Reactions: bacitracin [From Neosporin] Allergy (Verified 09/26/18 21:01) balsam dixon [Balsam [place]] Allergy (Verified 09/26/18 21:01) benzyl alcohol Allergy (Verified 09/26/18 21:01) cortisone Allergy (Verified 09/26/18 21:01) epoxy resin Allergy (Verified 09/26/18 21:01) ethylenediamine Allergy (Verified 09/26/18 21:01) formaldehyde Allergy (Verified 09/26/18 21:01) gramicidin D [From Neosporin] Allergy (Verified 09/26/18 21:01) neomycin sulfate [From Neosporin] Allergy (Verified 09/26/18 21:01) nystatin Allergy (Verified 09/26/18 21:01) polyethylene glycol Allergy (Verified 09/26/18 21:01) polymyxin B sulfate [From Neosporin] Allergy (Verified 09/26/18 21:01) propylene glycol Allergy (Verified 09/26/18 21:01) rosin Allergy (Verified 09/26/18 21:01) terconazole [From Terazol 3] Allergy (Verified 09/26/18 21:01) tioconazole [From Monistat 1 (tioconazole)] Allergy (Verified 09/26/18 21:01) ultrasound coupling medium Allergy (Verified 09/26/18 21:01) ANTIHYSTAMINES Allergy (Uncoded 09/26/18 21:01) CHROME Allergy (Uncoded 09/26/18 21:01) DIHYDROCHLORIDE Allergy (Uncoded 09/26/18 21:01) GREEN SOAP Allergy (Uncoded 09/26/18 21:01) STAINLESS STEEL Allergy (Uncoded 09/26/18 21:01) TAPE Allergy (Uncoded 09/26/18 21:01) Past Medical History - General Information source: Patient - Social History Smoking Status: Never Smoker Cigarette use (# per day): No Chew tobacco use (# tins/day): No Smoking Education Provided: No Frequency of alcohol use: None Family History: Reviewed & Not Pertinent - Past Medical History Cardiac Medical History: Reports: Hx Atrial Fibrillation, Hx Coronary Artery Disease, Hx Hypercholesterolemia, Hx Hypertension Pulmonary Medical History: Reports: Hx Asthma - POSSIBLY, NO CURRENT MEDS, Hx Pneumonia - COUPLE YRS AGO GI Medical History: Reports: Hx Irritable Bowel Musculoskeletal Medical History: Reports Hx Arthritis - GENERALIZED Past Surgical History: Reports: Hx Orthopedic Surgery - Immunizations Hx Diphtheria, Pertussis, Tetanus Vaccination: Yes Review of Systems - Review of Systems Constitutional: See HPI, Diaphoresis EENT: No symptoms reported Cardiovascular: No symptoms reported Respiratory: No symptoms reported Gastrointestinal: No symptoms reported Genitourinary: No symptoms reported Female Genitourinary: No symptoms reported Musculoskeletal: See HPI Skin: No symptoms reported Hematologic/Lymphatic: No symptoms reported Neurological/Psychological: No symptoms reported -: Yes All other systems reviewed and negative Physical Exam - Vital signs Vitals: Temp Pulse Resp BP Pulse Ox 98.2 F 118 H 23 H 122/50 L 97 09/26/18 19:03 09/26/18 19:03 09/26/18 19:03 09/26/18 19:03 09/26/18 19:03 - Notes Notes: GENERAL: Alert, flushed, interacts well. No acute distress. HEAD: Normocephalic, atraumatic. EYES: Pupils equal, round, and reactive to light. Extraocular movements intact. ENT: Oral mucosa moist, tongue midline. NECK: Full range of motion. Supple. Trachea midline. LUNGS: Clear to auscultation bilaterally, no wheezes, rales, or rhonchi. No respiratory distress. HEART: Tachycardic, irregularly irregular. Monitor shows afib at a rate of 148 per my interpretation. ABDOMEN: Soft, non-tender. Non-distended. Nontender. bowel sounds present in all 4 quadrants. No guarding, rigidity, or rebound. EXTREMITIES: Moves all 4 extremities spontaneously. NEUROLOGICAL: Alert and oriented x3. Normal speech. PSYCH: Normal affect, normal mood. SKIN: Warm to touch, flushed. Capillary refill < 3 seconds. Course - Re-evaluation Re-evalutation: 09/26/18 22:45 CBC shows leukocytosis of 15.4 which is improved since yesterday, there is an elevated lactic acid at 3.6, coags are normal, VBG is grossly unremarkable, potassium slightly low at 3.4, mild acute kidney injury with a GFR of 49, cardiac enzymes negative, urinalysis unremarkable, mono test is negative, chest x-ray is unremarkable. Blood and urine cultures are still pending. Blood and urine cultures from yesterday are negative. Despite a bolus of Cardizem at 30 and a drip that has been titrated up to 15 patient remains in A. fib RVR at a rate in the 140s, she does intermittently switch into a sinus rhythm which is still tachycardic and then returns to A. fib RVR, I have hydrated this patient, I am concerned for possible sepsis although I do not have a source at this time, patient has been started on Zosyn and has been admitted to the hospitalist for further workup and treatment. Patient does have intermittent hypotension with her Cardizem drip. - Vital Signs Vital signs: Temp Pulse Resp BP Pulse Ox 98.2 F 118 H 19 94/49 L 98 09/26/18 19:03 09/26/18 19:03 09/26/18 21:41 09/26/18 21:41 09/26/18 21:41 - Laboratory Result Diagrams: 09/26/18 19:23 09/26/18 19:23 Laboratory results interpreted by me: 09/26/18 09/26/18 09/26/18 19:23 19:23 20:40 WBC 15.4 H RDW 14.3 H Seg Neuts % (Manual) 86 H Lymphocytes % (Manual) 5 L Monocytes % (Manual) 1 L Abs Neuts (Manual) 13.9 H Potassium 3.4 L Est GFR (Non-Af Amer) 49 L Glucose 139 H Lactic Acid 3.6 H Total Protein 6.1 L Albumin 3.4 L - EKG Interpretation by Me Additional EKG results interpreted by me: 09/26/18 22:46 Initial EKG shows atrial fibrillation at rate 123, no ST segment elevations or depressions, no T wave inversions, normal axis, normal intervals per my interpretation. Repeat EKG shows atrial flutter with a 2-1 predominance, atrial rate of 272, ventricular rate of 139, ST segment depressions in V4 and V5, no ST segment elevations per my interpretation. Critical Care Note - Critical Care Note Total time excluding time spent on procedures (mins): 45 Discharge - Discharge Clinical Impression: Nausea vomiting and diarrhea, Atrial fibrillation with RVR, Lactic acidosis, SIRS (systemic inflammatory response syndrome) Leukocytosis Qualifiers: Leukocytosis type: bandemia Qualified Code(s): D72.825 - Bandemia Condition: Fair Disposition: ADMITTED INPATIENT Admitting Provider: [facility] Admitted: IMCU Referrals: DERIK DIETZ PA-C [Primary Care Provider] - Follow up as needed I personally performed the services described in the documentation, reviewed and edited the documentation which was dictated to the scribe in my presence, and it accurately records my words and actions.
[2018-09-26] MEDS ORDERED: MAG HYDROX/AL HYDROX/SIMETH SUSP 30 ML UDCUP PO PRN (22:52)
[2018-09-26] MEDS ORDERED: NORMAL SALINE 1000 ML 1,000 ML IV PRN (23:00)
[2018-09-26] MEDS ORDERED: CIPROFLOXACIN 400 MG/D5W RTU 400 MG/200 ML RTUPB IV ONE (23:00)
[2018-09-26] MEDS ORDERED: FLECAINIDE ACETATE 100 MG TABLET PO ONE (23:00)
[2018-09-26] MEDS: POTASSI CL 20 MEQ/50 ML RIDER 20 MEQ/50 ML RTUPB IV SCH (23:03)
[2018-09-26] MEDS: NORMAL SALINE 1000 ML 1,000 ML IV PRN (23:04)
[2018-09-26] MEDS ORDERED: APIXABAN 5 MG TABLET PO ONE (23:15)
[2018-09-27] MEDS: METRONIDAZOLE 500 MG TABLET PO SCH ×4 (00:41→17:45)
[2018-09-27] MEDS ORDERED: FLECAINIDE ACETATE 100 MG TABLET ONE (00:42)
[2018-09-27] MEDS: POTASSI CL 20 MEQ/50 ML RIDER 20 MEQ/50 ML RTUPB IV SCH (00:43)
[2018-09-27] MEDS ORDERED: DIGOXIN INJ 0.5 MG/2 ML AMPULE IV ONE ×2 (01:25→05:45)
[2018-09-27] MEDS: DILTIAZEM HCL/D5W 125 MG/125 ML RTUINJ IV PRN (02:47)
[2018-09-27] MEDS ORDERED: NORMAL SALINE INJ/PF 0.9% 10 ML SDV IV ONE (03:01)
[2018-09-27] MEDS ORDERED: NORMAL SALINE 1000 ML 1,000 ML IV ONE (03:15)
[2018-09-27 05:36] LABS: ABSOLUTE EOSINOPHILS # (AUTO) 0.4 10^3/uL (0.0-0.6); ABSOLUTE MONOCYTES (AUTO) 0.4 10^3/uL (0.1-1.4); ABSOLUTE NEUT (AUTO) 8.5 10^3/uL (1.7-8.2); BASOPHILS % (AUTO) 0.2 % (0-2); EOSINOPHILS % (AUTO) 4.1 % (0-6); HEMATOCRIT 35.1 % (36.0-47.0); MEAN CORPUSCULAR HEMOGLOBIN 29.8 pg (27.0-33.4); MEAN CORPUSCULAR HGB CONC 34.7 g/dL (32.0-36.0); MEAN CORPUSCULAR VOLUME 86 fl (80-97); MONOCYTES % (AUTO) 3.9 % (3-13); PLATELET COUNT 276 10^3/uL (150-450); RED BLOOD COUNT 4.09 10^6/uL (3.72-5.28); RED CELL DISTRIBUTION WIDTH 14.2 % (11.5-14.0); SEGMENTED NEUTROPHILS % (AUTO) 81.8 % (42-78); TOTAL CELLS COUNTED % (AUTO) 100 %; WHITE BLOOD COUNT 10.4 10^3/uL (4.0-10.5)
[2018-09-27] MEDS ORDERED: DIGOXIN INJ 0.5 MG/2 ML AMPULE ONE (05:36)
[2018-09-27] MEDS ORDERED: METRONIDAZOLE 500 MG/NS RTU 0 MG/0 ML RTUPB IV ONE (05:36)
[2018-09-27] MEDS: NORMAL SALINE 1000 ML 1,000 ML IV PRN (05:37)
[2018-09-27] MEDS ORDERED: METRONIDAZOLE 500 MG TABLET ONE (05:44)
--- NOTE | 2018-09-27 05:45 | PDOC H&P ---
History of Present Illness Admission Date/PCP: 09/26/18 22:50 DERIK DIETZ PA-C Patient complains of: Left lower quadrant pain History of Present Illness: DERIK ADAM is a 68 year old female with a past medical history of fibromyalgia, diabetes, obesity, hypertension, coronary artery disease, dyslipidemia, diverticulitis and atrial flutter on metoprolol, flecainide and Eliquis. She presents with 48 hours of left lower quadrant abdominal pain and myalgias that prompted a call to EMS who finds her with A. fib with RVR in the 180s. She receives IV Cardizem and brought to the emergency room for evaluation where she is in persistent a flutter in the 130s and placed on IV Cardizem. Patient is a poor historian and is unclear as to her last dose of flecainide. She otherwise complains of left lower quadrant pain and diarrhea. Patient presented 24 hours prior to the emergency department with abdominal pain prompting a CT that revealed diverticulosis only. She was on Macrobid 3 weeks ago. Patient repeats herself several times but is unaware of a history of dementia though recalls her mother was diagnosed. She is referred to the hospitalist for admission. Past Medical History Cardiac Medical History: Reports: Atrial Fibrillation, Coronary Artery Disease, Hyperlipidema, Hypertension Denies: Myocardial Infarction Pulmonary Medical History: Reports: Asthma - POSSIBLY, NO CURRENT MEDS, Pneumonia - COUPLE YRS AGO Denies: Bronchitis, Chronic Obstructive Pulmonary Disease (COPD) Neurological Medical History: Denies: Seizures Endocrine Medical History: Reports: Diabetes Mellitus Type 2 Musculoskeltal Medical History: Reports: Arthritis - GENERALIZED, Fibromyalgia Psychiatric Medical History: Reports: Depression Hematology: Reports: Anemia - IRON PILLS Past Surgical History Past Surgical History: Reports: Orthopedic Surgery Social History Information Source: Patient Smoking Status: Former Smoker Frequency of Alcohol Use: None Hx Recreational Drug Use: No Drugs: None Hx Prescription Drug Abuse: No - Advance Directive Resuscitation Status: Full Code Family History Family History: COPD, Hypertension, Other - Dementia Parental Family History Reviewed: Yes Children Family History Reviewed: Yes Sibling(s) Family History Reviewed.: Yes Medication/Allergy Home Medications: Apixaban [Eliquis 5 mg Tablet] 5 mg PO BID 09/26/18 Cetirizine HCl [Zyrtec 10 mg Tablet] 1 tab PO DAILY 09/26/18 Fenofibrate,Micronized [Fenofibrate] 134 mg PO DAILY 09/26/18 Flecainide Acetate [Tambocor 100 Mg Tablet] 100 mg PO Q12 09/26/18 Losartan Potassium 50 mg PO DAILY 09/26/18 Metformin HCl 1,000 mg PO BID 09/26/18 Metoprolol Succinate [Toprol Xl] 25 mg PO DAILY 09/26/18 Nitrofurantoin Macrocrystal [Macrodantin] 100 mg PO Q12 09/26/18 Allergies/Adverse Reactions: bacitracin [From Neosporin] Allergy (Verified 09/26/18 21:01) balsam dixon [Balsam [place]] Allergy (Verified 09/26/18 21:01) benzyl alcohol Allergy (Verified 09/26/18 21:01) cortisone Allergy (Verified 09/26/18 21:01) epoxy resin Allergy (Verified 09/26/18 21:01) ethylenediamine Allergy (Verified 09/26/18 21:01) formaldehyde Allergy (Verified 09/26/18 21:01) gramicidin D [From Neosporin] Allergy (Verified 09/26/18 21:01) neomycin sulfate [From Neosporin] Allergy (Verified 09/26/18 21:01) nystatin Allergy (Verified 09/26/18 21:01) polyethylene glycol Allergy (Verified 09/26/18 21:01) polymyxin B sulfate [From Neosporin] Allergy (Verified 09/26/18 21:01) propylene glycol Allergy (Verified 09/26/18 21:01) rosin Allergy (Verified 09/26/18 21:01) terconazole [From Terazol 3] Allergy (Verified 09/26/18 21:01) tioconazole [From Monistat 1 (tioconazole)] Allergy (Verified 09/26/18 21:01) ultrasound coupling medium Allergy (Verified 09/26/18 21:01) ANTIHYSTAMINES Allergy (Uncoded 09/26/18 21:01) CHROME Allergy (Uncoded 09/26/18 21:01) DIHYDROCHLORIDE Allergy (Uncoded 09/26/18 21:01) GREEN SOAP Allergy (Uncoded 09/26/18 21:01) STAINLESS STEEL Allergy (Uncoded 09/26/18 21:01) TAPE Allergy (Uncoded 09/26/18 21:01) Review of Systems Constitutional: ABSENT: chills, fever(s), headache(s), weight gain, weight loss Eyes: ABSENT: visual disturbances Ears: ABSENT: hearing changes Cardiovascular: ABSENT: chest pain, dyspnea on exertion, edema, orthropnea, palpitations Respiratory: ABSENT: cough, hemoptysis Gastrointestinal: ABSENT: abdominal pain, constipation, diarrhea, hematemesis, hematochezia, nausea, vomiting Genitourinary: ABSENT: dysuria, hematuria Musculoskeletal: ABSENT: joint swelling Integumentary: ABSENT: rash, wounds Neurological: ABSENT: abnormal gait, abnormal speech, confusion, dizziness, focal weakness, syncope Psychiatric: ABSENT: anxiety, depression, homidical ideation, suicidal ideation Endocrine: ABSENT: cold intolerance, heat intolerance, polydipsia, polyuria Hematologic/Lymphatic: ABSENT: easy bleeding, easy bruising Physical Exam Vital Signs: Temp Pulse Resp BP Pulse Ox 98.2 F 120 H 16 102/53 L 97 09/26/18 19:03 09/27/18 04:23 09/27/18 03:30 09/27/18 04:23 09/27/18 04:22 Intake & Output 09/25/18 09/26/18 09/27/18 11:59 11:59 11:59 Intake Total 2394 Balance 2394 Weight 103.4 kg General appearance: PRESENT: cooperative, mild distress, obese Head exam: PRESENT: atraumatic, normocephalic Eye exam: PRESENT: conjunctiva pink, EOMI, PERRLA. ABSENT: scleral icterus Ear exam: PRESENT: normal external ear exam Mouth exam: PRESENT: moist, tongue midline Neck exam: ABSENT: carotid bruit, JVD, lymphadenopathy, thyromegaly Respiratory exam: PRESENT: crackles, tachypnea. ABSENT: rales, rhonchi, wheezes Cardiovascular exam: PRESENT: irregular rhythm, +S1, +S2, tachycardia Pulses: PRESENT: normal dorsalis pedis pul Vascular exam: PRESENT: normal capillary refill GI/Abdominal exam: PRESENT: soft, tenderness - Left lower quadrant. ABSENT: as cites, diminished bowel sounds, distended, firm, guarding Rectal exam: PRESENT: deferred Extremities exam: PRESENT: full ROM. ABSENT: calf tenderness, clubbing, pedal edema Neurological exam: PRESENT: alert, awake, oriented to person, oriented to place, oriented to time, oriented to situation, CN II-XII grossly intact. ABSENT: motor sensory deficit Psychiatric exam: PRESENT: appropriate affect, normal mood. ABSENT: homicidal ideation, suicidal ideation Skin exam: PRESENT: dry, intact, warm. ABSENT: cyanosis, rash Results Laboratory Results: 09/26/18 19:23 09/26/18 19:23 09/26/18 09/26/18 09/26/18 19:23 19:23 19:23 WBC 15.4 H RBC 4.80 Hgb 14.3 Hct 42.2 MCV 88 MCH 29.9 MCHC 34.0 RDW 14.3 H Plt Count 353 Seg Neutrophils % Not Reportable Lymphocytes % Not Reportable Monocytes % Not Reportable Eosinophils % Not Reportable Basophils % Not Reportable Absolute Neutrophils Not Reportable Absolute Lymphocytes Not Reportable Absolute Monocytes Not Reportable Absolute Eosinophils Not Reportable Absolute Basophils Not Reportable VBG pH VBG pCO2 VBG HCO3 VBG Base Excess Sodium 139.6 Potassium 3.4 L Chloride 106 Carbon Dioxide 23 Anion Gap 11 BUN 14 Creatinine 1.10 Est GFR ( Amer) > 60 Est GFR (Non-Af Amer) 49 L Glucose 139 H Lactic Acid Calcium 10.2 Magnesium 1.5 L Total Bilirubin 0.3 AST 18 ALT 22 Alkaline Phosphatase 38 Total Protein 6.1 L Albumin 3.4 L TSH Urine Color Urine Appearance Urine pH Ur Specific [place] Urine Protein Urine Glucose (UA) Urine Ketones Urine Blood Urine Nitrite Ur Leukocyte Esterase Urine WBC (Auto) 09/26/18 09/26/18 09/26/18 19:23 20:20 20:40 WBC RBC Hgb Hct MCV MCH MCHC RDW Plt Count Seg Neutrophils % Lymphocytes % Monocytes % Eosinophils % Basophils % Absolute Neutrophils Absolute Lymphocytes Absolute Monocytes Absolute Eosinophils Absolute Basophils VBG pH VBG pCO2 VBG HCO3 VBG Base Excess Sodium Potassium Chloride Carbon Dioxide Anion Gap BUN Creatinine Est GFR ( Amer) Est GFR (Non-Af Amer) Glucose Lactic Acid 3.6 H Calcium Magnesium Total Bilirubin AST ALT Alkaline Phosphatase Total Protein Albumin TSH 3.38 Urine Color YELLOW Urine Appearance SLIGHTLY-CLOUDY Urine pH 5.0 Ur Specific [place] 1.012 Urine Protein NEGATIVE Urine Glucose (UA) NEGATIVE Urine Ketones NEGATIVE Urine Blood NEGATIVE Urine Nitrite NEGATIVE Ur Leukocyte Esterase NEGATIVE Urine WBC (Auto) 2 09/26/18 09/27/18 20:40 00:25 WBC RBC Hgb Hct MCV MCH MCHC RDW Plt Count Seg Neutrophils % Lymphocytes % Monocytes % Eosinophils % Basophils % Absolute Neutrophils Absolute Lymphocytes Absolute Monocytes Absolute Eosinophils Absolute Basophils VBG pH 7.41 VBG pCO2 36.1 VBG HCO3 22.4 VBG Base Excess -1.7 Sodium Potassium Chloride Carbon Dioxide Anion Gap BUN Creatinine Est GFR ( Amer) Est GFR (Non-Af Amer) Glucose Lactic Acid 2.7 H Calcium Magnesium Total Bilirubin AST ALT Alkaline Phosphatase Total Protein Albumin TSH Urine Color Urine Appearance Urine pH Ur Specific [place] Urine Protein Urine Glucose (UA) Urine Ketones Urine Blood Urine Nitrite Ur Leukocyte Esterase Urine WBC (Auto) 09/26/18 09/26/18 09/26/18 19:23 19:23 23:30 Creatine Kinase 72 CK-MB (CK-2) 0.88 Troponin I < 0.012 < 0.012 Impressions: Chest X-Ray 09/26/18 19:07 IMPRESSION: NO ACUTE RADIOGRAPHIC FINDING IN THE CHEST. Assessment and Plan - Diagnosis (1) Atrial flutter with rapid ventricular response Is this a current diagnosis for this admission?: Yes Plan: IMCU admission, IV Cardizem, continue Eliquis, flecainide, optimize volume, digoxin as needed (2) Diverticulitis Is this a current diagnosis for this admission?: Yes Plan: Flagyl, Cipro, clear liquid diet, symptomatic management, follow-up CBC and blood culture (3) Diabetes Is this a current diagnosis for this admission?: Yes Plan: Humalog sliding scale q. before meals as needed, follow-up medication reconciliation for long-acting agent. (4) Hypokalemia Is this a current diagnosis for this admission?: Yes Plan: Secondary to diarrhea, patient. Follow-up magnesium and chemistry - Time Time Spent with patient: 25-34 minutes - Inpatient Certification Medical Necessity: Need Close Monitoring Due to Risk of Patient Decompensation
[2018-09-27 05:48] LABS: HEMOGLOBIN 12.2 g/dL (12.0-15.5)
[2018-09-27 05:51] LABS: ANION GAP 5 (5-19); BLOOD UREA NITROGEN 11 mg/dL (7-20); CALCIUM 8.4 mg/dL (8.4-10.2); CARBON DIOXIDE 19 mmol/L (22-30); CHLORIDE 114 mmol/L (98-107); GLUCOSE 102 mg/dL (75-110); POTASSIUM 3.9 mmol/L (3.6-5.0); SODIUM 138.4 mmol/L (137-145)
[2018-09-27] MEDS ORDERED: HEPARIN SOD (PORCINE) 5,000 UNIT/ML 1 ML SYRINGE SUBCUT SCH (06:00)
[2018-09-27] MEDS: METOPROLOL SUCCINATE 25 MG TAB.SR.24H PO SCH (10:39)
[2018-09-27] MEDS: APIXABAN 5 MG TABLET PO SCH ×2 (10:39→22:30)
[2018-09-27] MEDS: LOSARTAN POTASSIUM 50 MG TABLET PO SCH (10:39)
[2018-09-27] MEDS: CETIRIZINE 10 MG TABLET PO SCH (10:39)
[2018-09-27] MEDS: CIPROFLOXACIN 400 MG/D5W RTU 400 MG/200 ML RTUPB IV SCH ×2 (10:40→22:30)
--- NOTE | 2018-09-27 11:07 | EKG REPORT ---
SEVERITY:- ABNORMAL ECG - A-FLUTTER W/ PREDOM 2:1 AV BLOCK, A-RATE 272 PROBABLE INFERIOR INFARCT, AGE INDETERMINATE ST DEPRESSION, CONSIDER ISCHEMIA, ANT-LAT LDS : Confirmed by: Stacey Haider MD 27-Sep-2018 11:05:50
[2018-09-27] MEDS: FLECAINIDE ACETATE 100 MG TABLET PO SCH ×2 (11:47→22:31)
--- NOTE | 2018-09-27 11:49 | PDOC PROGRESS REPORT ---
Subjective Progress Note for:: 09/27/18 Subjective:: This is a 68 year old female with a past medical history of fibromyalgia, diabetes, obesity, hypertension, coronary artery disease, dyslipidemia, diverticulitis and AFib on metoprolol, flecainide and Eliquis who presented with LLQ abdominal pain,diarrhea and palpitations. She was found to be in AFib with rVR in the 130s and was started on Cardizem drip. No acute event overnight. She complains she is more swollen on the hands and feet today after she got all the IV fluids since admission. She received a total of4 L of bolus and she does appear edematous. Currently rate controlled on Cardizem drip at 10 mg/hr. Denies chest pain or SOB. She says her abdominal pain is a little better. Reason For Visit: AFLUTTER DIVERTICULITIS HYPOKALEMIA Physical Exam Vital Signs: Temp Pulse Resp BP Pulse Ox 97.3 F 72 20 102/43 L 97 09/27/18 08:18 09/27/18 11:00 09/27/18 08:18 09/27/18 11:00 09/27/18 11:00 Intake & Output 09/26/18 09/27/18 09/28/18 06:59 06:59 06:59 Intake Total 4213 Output Total 200 Balance 4013 Weight 240 lb 11.916 oz General appearance: PRESENT: no acute distress, morbidly obese Head exam: PRESENT: atraumatic, normocephalic Eye exam: PRESENT: conjunctiva pink, EOMI, PERRLA. ABSENT: scleral icterus Ear exam: PRESENT: normal external ear exam Mouth exam: PRESENT: moist, tongue midline Neck exam: ABSENT: carotid bruit, JVD, lymphadenopathy, thyromegaly Respiratory exam: PRESENT: clear to auscultation aide. ABSENT: rales, rhonchi, wheezes Cardiovascular exam: PRESENT: irregular rhythm. ABSENT: diastolic murmur, rubs, systolic murmur Pulses: PRESENT: normal dorsalis pedis pul GI/Abdominal exam: PRESENT: normal bowel sounds, soft. ABSENT: distended, guarding, mass, organolmegaly, rebound, tenderness Rectal exam: PRESENT: deferred Extremities exam: PRESENT: +2 edema Neurological exam: PRESENT: alert, awake, oriented to person, oriented to place, oriented to time, oriented to situation, CN II-XII grossly intact. ABSENT: motor sensory deficit Results Laboratory Results: 09/27/18 05:15 09/27/18 05:15 09/26/18 09/26/18 09/26/18 19:23 19:23 19:23 WBC 15.4 H RBC 4.80 Hgb 14.3 Hct 42.2 MCV 88 MCH 29.9 MCHC 34.0 RDW 14.3 H Plt Count 353 Seg Neutrophils % Not Reportable Lymphocytes % Not Reportable Monocytes % Not Reportable Eosinophils % Not Reportable Basophils % Not Reportable Absolute Neutrophils Not Reportable Absolute Lymphocytes Not Reportable Absolute Monocytes Not Reportable Absolute Eosinophils Not Reportable Absolute Basophils Not Reportable VBG pH VBG pCO2 VBG HCO3 VBG Base Excess Sodium 139.6 Potassium 3.4 L Chloride 106 Carbon Dioxide 23 Anion Gap 11 BUN 14 Creatinine 1.10 Est GFR ( Amer) > 60 Est GFR (Non-Af Amer) 49 L Glucose 139 H Lactic Acid Calcium 10.2 Magnesium 1.5 L Total Bilirubin 0.3 AST 18 ALT 22 Alkaline Phosphatase 38 Total Protein 6.1 L Albumin 3.4 L TSH Urine Color Urine Appearance Urine pH Ur Specific [place] Urine Protein Urine Glucose (UA) Urine Ketones Urine Blood Urine Nitrite Ur Leukocyte Esterase Urine WBC (Auto) 09/26/18 09/26/18 09/26/18 19:23 20:20 20:40 WBC RBC Hgb Hct MCV MCH MCHC RDW Plt Count Seg Neutrophils % Lymphocytes % Monocytes % Eosinophils % Basophils % Absolute Neutrophils Absolute Lymphocytes Absolute Monocytes Absolute Eosinophils Absolute Basophils VBG pH VBG pCO2 VBG HCO3 VBG Base Excess Sodium Potassium Chloride Carbon Dioxide Anion Gap BUN Creatinine Est GFR ( Amer) Est GFR (Non-Af Amer) Glucose Lactic Acid 3.6 H Calcium Magnesium Total Bilirubin AST ALT Alkaline Phosphatase Total Protein Albumin TSH 3.38 Urine Color YELLOW Urine Appearance SLIGHTLY-CLOUDY Urine pH 5.0 Ur Specific [place] 1.012 Urine Protein NEGATIVE Urine Glucose (UA) NEGATIVE Urine Ketones NEGATIVE Urine Blood NEGATIVE Urine Nitrite NEGATIVE Ur Leukocyte Esterase NEGATIVE Urine WBC (Auto) 2 09/26/18 09/27/18 09/27/18 20:40 00:25 05:15 WBC 10.4 RBC 4.09 Hgb 12.2 D Hct 35.1 L MCV 86 MCH 29.8 MCHC 34.7 RDW 14.2 H Plt Count 276 Seg Neutrophils % 81.8 H Lymphocytes % 10.0 L Monocytes % 3.9 Eosinophils % 4.1 Basophils % 0.2 Absolute Neutrophils 8.5 H Absolute Lymphocytes 1.0 Absolute Monocytes 0.4 Absolute Eosinophils 0.4 Absolute Basophils 0.0 VBG pH 7.41 VBG pCO2 36.1 VBG HCO3 22.4 VBG Base Excess -1.7 Sodium Potassium Chloride Carbon Dioxide Anion Gap BUN Creatinine Est GFR ( Amer) Est GFR (Non-Af Amer) Glucose Lactic Acid 2.7 H Calcium Magnesium Total Bilirubin AST ALT Alkaline Phosphatase Total Protein Albumin TSH Urine Color Urine Appearance Urine pH Ur Specific [place] Urine Protein Urine Glucose (UA) Urine Ketones Urine Blood Urine Nitrite Ur Leukocyte Esterase Urine WBC (Auto) 09/27/18 05:15 WBC RBC Hgb Hct MCV MCH MCHC RDW Plt Count Seg Neutrophils % Lymphocytes % Monocytes % Eosinophils % Basophils % Absolute Neutrophils Absolute Lymphocytes Absolute Monocytes Absolute Eosinophils Absolute Basophils VBG pH VBG pCO2 VBG HCO3 VBG Base Excess Sodium 138.4 Potassium 3.9 Chloride 114 H Carbon Dioxide 19 L Anion Gap 5 BUN 11 Creatinine 0.85 Est GFR ( Amer) > 60 Est GFR (Non-Af Amer) > 60 Glucose 102 Lactic Acid Calcium 8.4 Magnesium Total Bilirubin AST ALT Alkaline Phosphatase Total Protein Albumin TSH Urine Color Urine Appearance Urine pH Ur Specific [place] Urine Protein Urine Glucose (UA) Urine Ketones Urine Blood Urine Nitrite Ur Leukocyte Esterase Urine WBC (Auto) 09/26/18 09/26/18 09/26/18 19:23 19:23 23:30 Creatine Kinase 72 CK-MB (CK-2) 0.88 Troponin I < 0.012 < 0.012 09/27/18 05:15 Creatine Kinase CK-MB (CK-2) Troponin I < 0.012 Impressions: Chest X-Ray 09/26/18 19:07 IMPRESSION: NO ACUTE RADIOGRAPHIC FINDING IN THE CHEST. Assessment and Plan - Diagnosis (1) Atrial flutter with rapid ventricular response Is this a current diagnosis for this admission?: Yes Plan: Currently rate-controlled. Will continue to wean off and possibly discontinue cardizem drip today and will resume her oral home meds. Continue Eliquis for anticoagulation. (2) Diverticulitis Is this a current diagnosis for this admission?: Yes Plan: Continue Flagyl and ciprofloxacin. (3) Lactic acidosis Is this a current diagnosis for this admission?: Yes Plan: Resolved with IV fluids. (4) HTN (hypertension) Is this a current diagnosis for this admission?: Yes Plan: Controlled. Continue losartan and metoprolol. - Time Time Spent with patient: 25-34 minutes
--- NOTE | 2018-09-27 13:33 | RADIOLOGY REPORT (SQ) ---
EXAM DESCRIPTION: CT ABD/PELVIS NO ORAL OR IV COMPLETED DATE/TIME: 09/27/2018 1:11 pm REASON FOR STUDY: LLQ pain, lactic acidosis COMPARISON: CT abdomen pelvis 04/27/2018 Abdominal ultrasound 12/30/2012 TECHNIQUE: CT scan of the abdomen and pelvis performed without intravenous or oral contrast. Images reviewed with lung, soft tissue, and bone windows. Reconstructed coronal and sagittal MPR images revi ewed. All images stored on PACS. All CT scanners at this facility use dose modulation, iterative reconstruction, and/or weight based d osing when appropriate to reduce radiation dose to as low as reasonably achievable (ALARA). [facility]: Dose Right [facility]: CareDose [facility]: Dose Right [facility]: Teradose 4D [facility]: [employer] RADIATION DOSE: CT Rad equipment meets quality standard of care and radiation dose reduction techniq ues were employed. CTDIvol: 18.9 mGy. DLP: 1020 mGy-cm.mGy. LIMITATIONS: None. FINDINGS: LOWER CHEST: Small to moderate size hiatal hernia NON-CONTRASTED LIVER, SPLEEN, ADRENALS: Fatty liver. No masses. Spleen, adrenal glands unremarkable PANCREAS: No masses. No peripancreatic inflammatory changes. GALLBLADDER: No identified stones by CT criteria. No inflammatory changes to suggest cholecystitis. RIGHT KIDNEY AND URETER: No suspicious masses. Assessment limited by lack of IV contrast. No signif icant calcifications. No hydronephrosis or hydroureter. LEFT KIDNEY AND URETER: No suspicious masses. Assessment limited by lack of IV contrast. No signifi cant calcifications. No hydronephrosis or hydroureter. AORTA AND RETROPERITONEUM: No aneurysm. No retroperitoneal masses or adenopathy. BOWEL AND PERITONEAL CAVITY: No obvious masses or inflammatory changes. No free fluid. Sigmoid and d escending colon diverticuli without CT signs of diverticulitis APPENDIX: Normal. PELVIS, BLADDER, AND ABDOMINAL WALL:No abnormal masses. No free fluid. Bladder normal. Normal size f emale pelvic organs. Tiny fat containing umbilical hernia BONES: Diffuse degenerative disc changes lumbar spine OTHER: No other significant finding. IMPRESSION: Colonic diverticuli without CT signs of acute diverticulitis. COMMENT: Quality ID # [id number]: Final reports with documentation of one or more dose reduction techniques (e.g., Automated exposure control, adjustment of the mA and/or kV according to patient size, use of iterative reconstruction technique) TECHNICAL DOCUMENTATION: JOB ID: [id number] [employer]- All Rights Reserved Reading location - IP/workstation name: [email or web address]
[2018-09-28] MEDS: METRONIDAZOLE 500 MG TABLET PO SCH ×4 (00:38→19:02)
[2018-09-28] MEDS ORDERED: ACETAMINOPHEN 325 MG TABLET PO PRN (08:33)
[2018-09-28] MEDS: APIXABAN 5 MG TABLET PO SCH ×2 (09:02→21:30)
[2018-09-28] MEDS: CETIRIZINE 10 MG TABLET PO SCH (09:02)
[2018-09-28] MEDS: METOPROLOL SUCCINATE 25 MG TAB.SR.24H PO SCH (09:02)
[2018-09-28] MEDS: LOSARTAN POTASSIUM 50 MG TABLET PO SCH (09:03)
[2018-09-28] MEDS: CIPROFLOXACIN 400 MG/D5W RTU 400 MG/200 ML RTUPB IV SCH (09:04)
[2018-09-28] MEDS: FLECAINIDE ACETATE 100 MG TABLET PO SCH ×2 (09:06→21:31)
[2018-09-28] MEDS ORDERED: DIGOXIN INJ 0.5 MG/2 ML AMPULE IV SCH (10:00)
--- NOTE | 2018-09-28 17:36 | PDOC PROGRESS REPORT ---
Subjective Progress Note for:: 09/28/18 Subjective:: This is a 68 year old female with a past medical history of fibromyalgia, diabetes, obesity, hypertension, coronary artery disease, dyslipidemia, diverticulitis and AFib on metoprolol, flecainide and Eliquis who presented with LLQ abdominal pain, diarrhea and palpitations. She was found to be in AFib with rVR in the 130s and was started on Cardizem drip. She complains she is more swollen on the hands and feet today after she got all the IV fluids since admission. She received a total of4 L of bolus and she does appear edematous. Currently rate controlled on Cardizem drip at 10 mg/hr. Denies chest pain or SOB. She says her abdominal pain is a little better. 09/28: No acute event overnight. She is off cardizem drip. Currently in sinus rhythm. She says her abodminal pain is significantly better today. She is tolerating soft diet well. Reason For Visit: AFLUTTER DIVERTICULITIS HYPOKALEMIA Physical Exam Vital Signs: Temp Pulse Resp BP Pulse Ox 98.2 F 74 16 119/56 L 98 09/28/18 14:48 09/28/18 14:48 09/28/18 14:48 09/28/18 14:48 09/28/18 14:48 Intake & Output 09/27/18 09/28/18 09/29/18 06:59 06:59 06:59 Intake Total 4213 3823 680 Output Total 200 4300 Balance 4013 -477 680 Weight 240 lb 11.916 oz 238 lb 5.115 oz General appearance: PRESENT: no acute distress, well-developed, well-nourished Head exam: PRESENT: atraumatic, normocephalic Eye exam: PRESENT: conjunctiva pink, EOMI, PERRLA. ABSENT: scleral icterus Ear exam: PRESENT: normal external ear exam Mouth exam: PRESENT: moist, tongue midline Neck exam: ABSENT: carotid bruit, JVD, lymphadenopathy, thyromegaly Respiratory exam: PRESENT: clear to auscultation aide. ABSENT: rales, rhonchi, wheezes Cardiovascular exam: PRESENT: RRR. ABSENT: diastolic murmur, rubs, systolic murmur Pulses: PRESENT: normal dorsalis pedis pul GI/Abdominal exam: PRESENT: normal bowel sounds, soft. ABSENT: distended, guarding, mass, organolmegaly, rebound, tenderness Rectal exam: PRESENT: deferred Extremities exam: PRESENT: full ROM. ABSENT: calf tenderness, clubbing, pedal edema Results Laboratory Results: 09/27/18 05:15 09/27/18 05:15 09/26/18 20:20 Catheterized Urine Urine Culture - Final NO GROWTH 2 DAYS 09/26/18 09/26/18 09/26/18 19:23 19:23 23:30 Creatine Kinase 72 CK-MB (CK-2) 0.88 Troponin I < 0.012 < 0.012 09/27/18 05:15 Creatine Kinase CK-MB (CK-2) Troponin I < 0.012 Impressions: Chest X-Ray 09/26/18 19:07 IMPRESSION: NO ACUTE RADIOGRAPHIC FINDING IN THE CHEST. Abdomen/Pelvis CT 09/27/18 10:32 IMPRESSION: Colonic diverticuli without CT signs of acute diverticulitis. Assessment and Plan - Diagnosis (1) Atrial flutter with rapid ventricular response Is this a current diagnosis for this admission?: Yes Plan: Currently rate-controlled. Will continue to wean off and possibly discontinue cardizem drip today and will resume her oral home meds. Continue Eliquis for an ticoagulation. 09/28: She is off cardizem drip. Currently in sinus rhythm. Continue Eliquis and metoprolol. Discontinue Lanoxin. (2) Diverticulitis Is this a current diagnosis for this admission?: Yes Plan: Continue Flagyl and ciprofloxacin. 09/28: Improving. (3) Lactic acidosis Is this a current diagnosis for this admission?: Yes Plan: Resolved with IV fluids. (4) HTN (hypertension) Is this a current diagnosis for this admission?: Yes Plan: Controlled. Continue losartan and metoprolol. - Time Time Spent with patient: 15-24 minutes
[2018-09-28] MEDS: VALACYCLOVIR HCL 500 MG TABLET PO SCH (21:30)
[2018-09-28] MEDS: CIPROFLOXACIN HCL 500 MG TABLET PO SCH (21:30)
[2018-09-29] MEDS: METRONIDAZOLE 500 MG TABLET PO SCH ×4 (01:00→17:09)
[2018-09-29] MEDS: CETIRIZINE 10 MG TABLET PO SCH (09:17)
[2018-09-29] MEDS: FLECAINIDE ACETATE 100 MG TABLET PO SCH ×2 (09:17→22:03)
[2018-09-29] MEDS: LOSARTAN POTASSIUM 50 MG TABLET PO SCH (09:17)
[2018-09-29] MEDS: VALACYCLOVIR HCL 500 MG TABLET PO SCH (09:17)
[2018-09-29] MEDS: CIPROFLOXACIN HCL 500 MG TABLET PO SCH ×2 (09:17→22:03)
[2018-09-29] MEDS: APIXABAN 5 MG TABLET PO SCH ×2 (09:17→22:03)
[2018-09-29] MEDS: METOPROLOL SUCCINATE 25 MG TAB.SR.24H PO SCH (09:17)
--- NOTE | 2018-09-29 18:49 | PDOC PROGRESS REPORT ---
Subjective Progress Note for:: 09/29/18 Subjective:: No adverse events overnight. No new complaints. She says that she is only been allowed to have liquids but she is got a soft mechanical diet ordered. She says she is feeling better today. Abdominal pain has improved. Reason For Visit: AFLUTTER DIVERTICULITIS HYPOKALEMIA Physical Exam Vital Signs: Temp Pulse Resp BP Pulse Ox 98.6 F 71 18 128/60 H 97 09/29/18 14:56 09/29/18 14:56 09/29/18 14:56 09/29/18 14:56 09/29/18 14:56 Intake & Output 09/28/18 09/29/18 09/30/18 06:59 06:59 06:59 Intake Total 3823 2167 1303 Output Total 4300 3550 2200 Balance -477 -1383 -897 Weight 108.1 kg 104.1 kg General appearance: PRESENT: no acute distress, well-developed, well-nourished Respiratory exam: PRESENT: clear to auscultation aide. ABSENT: rales, rhonchi, wheezes Cardiovascular exam: PRESENT: RRR. ABSENT: diastolic murmur, rubs, systolic murmur Pulses: PRESENT: normal dorsalis pedis pul GI/Abdominal exam: PRESENT: normal bowel sounds, soft. ABSENT: distended, guarding, mass, organolmegaly, rebound, tenderness Extremities exam: PRESENT: full ROM. ABSENT: calf tenderness, clubbing, pedal edema Results Laboratory Results: 09/27/18 05:15 09/27/18 05:15 09/26/18 09/26/18 09/26/18 19:23 19:23 23:30 Creatine Kinase 72 CK-MB (CK-2) 0.88 Troponin I < 0.012 < 0.012 09/27/18 05:15 Creatine Kinase CK-MB (CK-2) Troponin I < 0.012 Impressions: Chest X-Ray 09/26/18 19:07 IMPRESSION: NO ACUTE RADIOGRAPHIC FINDING IN THE CHEST. Abdomen/Pelvis CT 09/27/18 10:32 IMPRESSION: Colonic diverticuli without CT signs of acute diverticulitis. Assessment and Plan - Diagnosis (1) Atrial flutter with rapid ventricular response Is this a current diagnosis for this admission?: Yes Plan: Resolved. Back in a sinus rhythm. (2) Diverticulitis Is this a current diagnosis for this admission?: Yes Plan: Improving on antibiotics. We will likely send her home tomorrow with Hang and Wilian p.o. (3) HTN (hypertension) Is this a current diagnosis for this admission?: Yes Plan: Controlled on her current regimen. - Time Time Spent with patient: 25-34 minutes
[2018-09-30] MEDS: METRONIDAZOLE 500 MG TABLET PO SCH ×3 (00:09→11:15)
[2018-09-30 08:27] VITALS: BP 147/72
[2018-09-30] MEDS: LOSARTAN POTASSIUM 50 MG TABLET PO SCH (09:49)
[2018-09-30] MEDS: CIPROFLOXACIN HCL 500 MG TABLET PO SCH (09:49)
[2018-09-30] MEDS: METOPROLOL SUCCINATE 25 MG TAB.SR.24H PO SCH (09:49)
[2018-09-30] MEDS: FLECAINIDE ACETATE 100 MG TABLET PO SCH (09:49)
[2018-09-30] MEDS: APIXABAN 5 MG TABLET PO SCH (09:49)
[2018-09-30] MEDS: CETIRIZINE 10 MG TABLET PO SCH (09:49)
--- NOTE | 2018-09-30 17:01 | PDOC DISCHARGE SUMMARY ---
General - Admit/Disc Date/PCP Admission Date/Primary Care Provider: 09/26/18 22:50 DERIK DIETZ PA-C Discharge Date: 09/30/18 - Discharge Diagnosis (1) Atrial flutter with rapid ventricular response Is this a current diagnosis for this admission?: Yes Summary: Put on a Cardizem drip and started back on her home medications and she converted back to a sinus rhythm. (2) Diverticulitis Is this a current diagnosis for this admission?: Yes Summary: Responded well to antibiotics, she was switched over to Cipro and Flagyl which she will continue at home. (3) HTN (hypertension) Is this a current diagnosis for this admission?: Yes Summary: Well controlled with her home medications - Additional Information Resuscitation Status: Full Code Discharge Diet: Diabetic Discharge Activity: Activity As Tolerated Prescriptions: Ciprofloxacin HCl [Cipro 500 mg Tablet] 500 mg PO Q12 #14 tablet Metronidazole [Flagyl 500 mg Tablet] 500 mg PO Q8 #21 tablet Home Medications: Apixaban [Eliquis 5 mg Tablet] 5 mg PO Q12 09/26/18 Cetirizine HCl [Zyrtec 10 mg Tablet] 1 tab PO DAILY 09/26/18 Fenofibrate,Micronized [Fenofibrate] 134 mg PO DAILY 09/26/18 Flecainide Acetate [Tambocor 100 mg Tablet] 100 mg PO Q12 09/26/18 Losartan Potassium 50 mg PO DAILY 09/26/18 Metformin HCl 1,000 mg PO BID 09/26/18 Metoprolol Succinate [Toprol Xl] 25 mg PO DAILY 09/26/18 Dulaglutide [Trulicity] 0.75 mg SQ SA@1000 09/27/18 Ciprofloxacin HCl [Cipro 500 mg Tablet] 500 mg PO Q12 #14 tablet 09/30/18 Metronidazole [Flagyl 500 mg Tablet] 500 mg PO Q8 #21 tablet 09/30/18 History of Present Illness History of Present Illness: DERIK ADAM is a 68 year old female with a past medical history of fibromyalgia, diabetes, obesity, hypertension, coronary artery disease, dyslipid emia, diverticulitis and atrial flutter on metoprolol, flecainide and Eliquis. She presents with 48 hours of left lower quadrant abdominal pain and myalgias that prompted a call to EMS who finds her with A. fib with RVR in the 180s. She receives IV Cardizem and brought to the emergency room for evaluation where she is in persistent a flutter in the 130s and placed on IV Cardizem. Patient is a poor historian and is unclear as to her last dose of flecainide. She otherwise complains of left lower quadrant pain and diarrhea. Patient presented 24 hours prior to the emergency department with abdominal pain prompting a CT that revealed diverticulosis only. She was on Macrobid 3 weeks ago. Patient repeats herself several times but is unaware of a history of dementia though recalls her mother was diagnosed. She is referred to the hospitalist for admission. Hospital Course Hospital Course: She was started on antibiotics and put on a Cardizem drip which was quickly discontinued because she converted back to a sinus rhythm. She responded very w ell to antibiotics and was able to transition back to mechanical soft diet and tolerated it well. Her abdominal pain resolved. Her vital signs were stable. She will complete a course of Cipro and Flagyl at home. Her labs and exam are reassuring she was discharged in good condition. Physical Exam Vital Signs: Temp Pulse Resp BP Pulse Ox 97.6 F 66 18 147/72 H 99 09/30/18 13:23 09/30/18 13:23 09/30/18 13:23 09/30/18 13:23 09/30/18 13:23 Intake & Output 09/29/18 09/30/18 10/01/18 06:59 06:59 06:59 Intake Total 2167 1303 Output Total 3550 4150 625 Balance -2793 -1907 -625 Weight 104.1 kg 105.2 kg General appearance: PRESENT: no acute distress, well-developed, well-nourished Respiratory exam: PRESENT: clear to auscultation aide. ABSENT: rales, rhonchi, wheezes Cardiovascular exam: PRESENT: RRR. ABSENT: diastolic murmur, rubs, systolic murmur Pulses: PRESENT: normal dorsalis pedis pul GI/Abdominal exam: PRESENT: normal bowel sounds, soft. ABSENT: distended, guarding, mass, organolmegaly, rebound, tenderness Extremities exam: PRESENT: full ROM. ABSENT: calf tenderness, clubbing, pedal edema Results Laboratory Results: 09/27/18 05:15 09/27/18 05:15 09/26/18 09/26/18 09/26/18 19:23 19:23 23:30 Creatine Kinase 72 CK-MB (CK-2) 0.88 Troponin I < 0.012 < 0.012 09/27/18 05:15 Creatine Kinase CK-MB (CK-2) Troponin I < 0.012 Impressions: Chest X-Ray 09/26/18 19:07 IMPRESSION: NO ACUTE RADIOGRAPHIC FINDING IN THE CHEST. Abdomen/Pelvis CT 09/27/18 10:32 IMPRESSION: Colonic diverticuli without CT signs of acute diverticulitis. Qualifiers - * PATIENT BEING DISCHARGED WITH ANY OF THE FOLLOWING DIAGNOSIS: No
== END 2018-09-30 13:39 | disposition home or self-care (01) | DRG 309 ==
LOC: ER 19:03 → EH 22:50 → 3S 09-27 02:25
PROVIDERS: ADMIT Internal Medicine; ATTEND Internal Medicine
DX: I48.92 Unspecified atrial flutter (principal); K57.92 Diverticulitis of intestine, part unspecified, without perforation or abscess without bleeding; Z68.41 Body mass index [BMI] 40.0-44.9, adult; E87.2 Acidosis; E87.6 Hypokalemia; I10 Essential (primary) hypertension; E11.9 Type 2 diabetes mellitus without complications; E66.9 Obesity, unspecified; M79.7 Fibromyalgia; I25.10 Atherosclerotic heart disease of native coronary artery without angina pectoris; E78.5 Hyperlipidemia, unspecified; F32.9 Major depressive disorder, single episode, unspecified; D64.9 Anemia, unspecified; I48.2 Chronic atrial fibrillation; Z88.3 Allergy status to other anti-infective agents; Z88.8 Allergy status to other drugs, medicaments and biological substances; Z91.048 Other nonmedicinal substance allergy status; Z79.84 Long term (current) use of oral hypoglycemic drugs; Z79.899 Other long term (current) drug therapy; Z79.01 Long term (current) use of anticoagulants; Z87.891 Personal history of nicotine dependence; Z82.49 Family history of ischemic heart disease and other diseases of the circulatory system; Z83.6 Family history of other diseases of the respiratory system
CPT/HCPCS: 36415; 51701; 71045; 71046; 74176; 80048; 80053; 81001; 82550; 82553; 82803; 83605; 83735; 84443; 84484; 85025; 85610; 86308; 87040; 87086; 87804; 93005; 93010; 96374; 99291; J0744; J1160; J2543; J3480; J3490; J7030

== ENCOUNTER 2018-12-05 10:35 | Emergency (ER) | payer MEDICARE, BC ==
--- NOTE | 2018-12-05 11:16 | ER Document Report ---
ED Medical Screen (RME) - General Chief Complaint: Pain All Over Stated Complaint: MUSCLE ACHES Time Seen by Provider: 12/05/18 11:04 Primary Care Provider: DERIK DIETZ PA-C [Primary Care Provider] - Follow up as needed Notes: Patient is a 68-year-old female presents to the emergency department with "muscle aches." States she was admitted in a hospital in [place] and also at this facility for being "close to ." States she had sepsis but patient is unsure of where exactly she was septic. States she started with Generalized muscle aches the last time she was diagnosed and had the same symptoms today which is why she presents to the emergency room.patient is also complaining of a heaviness in the center of her chest. In looking at past patient charts it appears patient had diverticulosis diagnosed via CT and also a flutter RVR. GENERAL: Alert, interacts well. No acute distress.. LUNGS: Clear to auscultation bilaterally, no wheezes, rales, or rhonchi. No respiratory distress. I have greeted and performed a rapid initial assessment of this patient. A comprehensive ED assessment and evaluation of the patient, analysis of test results and completion of the medical decision making process will be conducted by additional ED providers. This medical record was dictated with voice recognizing software. There may be grammatical, syntax errors that are unintended. TRAVEL OUTSIDE OF THE [place] IN LAST 30 DAYS: No - Related Data Allergies/Adverse Reactions: bacitracin [From Neosporin] Allergy (Verified 12/05/18 10:38) balsam [place] [Balsam [place]] Allergy (Verified 12/05/18 10:38) benzyl alcohol Allergy (Verified 12/05/18 10:38) cortisone Allergy (Verified 12/05/18 10:38) epoxy resin Allergy (Verified 12/05/18 10:38) ethylenediamine Allergy (Verified 12/05/18 10:38) formaldehyde Allergy (Verified 12/05/18 10:38) gramicidin D [From Neosporin] Allergy (Verified 12/05/18 10:38) neomycin sulfate [From Neosporin] Allergy (Verified 12/05/18 10:38) nystatin Allergy (Verified 12/05/18 10:38) polyethylene glycol Allergy (Verified 12/05/18 10:38) polymyxin B sulfate [From Neosporin] Allergy (Verified 12/05/18 10:38) propylene glycol Allergy (Verified 12/05/18 10:38) rosin Allergy (Verified 12/05/18 10:38) terconazole [From Terazol 3] Allergy (Verified 12/05/18 10:38) tioconazole [From Monistat 1 (tioconazole)] Allergy (Verified 12/05/18 10:38) ultrasound coupling medium Allergy (Verified 12/05/18 10:38) ANTIHYSTAMINES Allergy (Uncoded 12/05/18 10:38) CHROME Allergy (Uncoded 12/05/18 10:38) DIHYDROCHLORIDE Allergy (Uncoded 12/05/18 10:38) GREEN SOAP Allergy (Uncoded 12/05/18 10:38) STAINLESS STEEL Allergy (Uncoded 12/05/18 10:38) TAPE Allergy (Uncoded 12/05/18 10:38) Past Medical History - Past Medical History Cardiac Medical History: Reports: Hx Atrial Fibrillation, Hx Coronary Artery Disease, Hx Hypercholesterolemia, Hx Hypertension Denies: Hx Heart Attack Pulmonary Medical History: Reports: Hx Asthma - POSSIBLY, NO CURRENT MEDS, Hx Pneumonia - COUPLE YRS AGO Denies: Hx Bronchitis, Hx COPD Neurological Medical History: Denies: Hx Cerebrovascular Accident, Hx Seizures Endocrine Medical History: Reports: Hx Diabetes Mellitus Type 2 Renal/ Medical History: Denies: Hx Peritoneal Dialysis GI Medical History: Reports: Hx Irritable Bowel Musculoskeltal Medical History: Reports Hx Arthritis - GENERALIZED, Reports Hx Fibromyalgia Psychiatric Medical History: Reports: Hx Depression Past Surgical History: Reports: Hx Orthopedic Surgery - Immunizations Hx Diphtheria, Pertussis, Tetanus Vaccination: Yes History of Influenza Vaccine for 03/2017 - 08/2017 Season: Yes Influenza Administration Date for 03/2017 - 08/2017 Season: 03/31/17 Physical Exam - Vital signs Vitals: Temp Pulse Resp BP Pulse Ox 97.4 F 75 16 133/61 H 96 12/05/18 10:42 12/05/18 10:42 12/05/18 10:42 12/05/18 10:42 12/05/18 10:42 Course - Vital Signs Vital signs: Temp Pulse Resp BP Pulse Ox 97.4 F 75 16 133/61 H 96 12/05/18 10:42 12/05/18 10:42 12/05/18 10:42 12/05/18 10:42 12/05/18 10:42 Doctor's Discharge - Discharge Referrals: DERIK DIETZ PA-C [Primary Care Provider] - Follow up as needed
--- NOTE | 2018-12-05 11:51 | EKG REPORT ---
SEVERITY:- BORDERLINE ECG - SINUS RHYTHM BORDERLINE T ABNORMALITIES, ANT-LAT LEADS : Confirmed by: Ramon Plunkett MD 05-Dec-2018 11:51:09
[2018-12-05 12:01] LABS: ABSOLUTE EOSINOPHILS # (AUTO) 0.3 10^3/uL (0.0-0.6); ABSOLUTE LYMPHOCYTES (AUTO) 1.3 10^3/uL (0.5-4.7); ABSOLUTE MONOCYTES (AUTO) 0.3 10^3/uL (0.1-1.4); ABSOLUTE NEUT (AUTO) 4.7 10^3/uL (1.7-8.2); BASOPHILS % (AUTO) 0.4 % (0-2); EOSINOPHILS % (AUTO) 4.4 % (0-6); HEMATOCRIT 41.6 % (36.0-47.0); HEMOGLOBIN 13.7 g/dL (12.0-15.5); LYMPHOCYTES % (AUTO) 19.3 % (13-45); MEAN CORPUSCULAR HEMOGLOBIN 29.1 pg (27.0-33.4); MEAN CORPUSCULAR VOLUME 88 fl (80-97); MONOCYTES % (AUTO) 4.6 % (3-13); PLATELET COUNT 305 10^3/uL (150-450); RED BLOOD COUNT 4.72 10^6/uL (3.72-5.28); RED CELL DISTRIBUTION WIDTH 13.7 % (11.5-14.0); SEGMENTED NEUTROPHILS % (AUTO) 71.3 % (42-78); TOTAL CELLS COUNTED % (AUTO) 100 %; WHITE BLOOD COUNT 6.7 10^3/uL (4.0-10.5)
[2018-12-05 12:05] LABS: APPEARANCE,URINE SLIGHTLY-CLOUDY; BILIRUBIN,URINE NEGATIVE (NEGATIVE); COLOR,URINE YELLOW; GLUCOSE, URINE 50 mg/dL (NEGATIVE); KETONES,URINE NEGATIVE (NEGATIVE); LEUKOCYTE ESTERASE,URINE NEGATIVE (NEGATIVE); NITRITE,URINE NEGATIVE (NEGATIVE); PROTEIN,URINE NEGATIVE (NEGATIVE); UROBILINOGEN,URINE NEGATIVE mg/dL (<2.0)
--- NOTE | 2018-12-05 12:10 | RADIOLOGY REPORT (SQ) ---
EXAM DESCRIPTION: CHEST 2 VIEWS COMPLETED DATE/TIME: 12/05/2018 12:00 pm REASON FOR STUDY: pain COMPARISON: None. EXAM PARAMETERS: NUMBER OF VIEWS: two views TECHNIQUE: Digital Frontal and Lateral radiographic views of the chest acquired. RADIATION DOSE: NA LIMITATIONS: none FINDINGS: LUNGS AND PLEURA: No opacities, masses or pneumothorax. No pleural effusion. MEDIASTINUM AND HILAR STRUCTURES: No masses or contour abnormalities. HEART AND VASCULAR STRUCTURES: Heart normal size. No evidence for failure. BONES: No acute findings. HARDWARE: None in the chest. OTHER: No other significant finding. IMPRESSION: NO ACUTE RADIOGRAPHIC FINDING IN THE CHEST. TECHNICAL DOCUMENTATION: JOB ID: [id number] [employer]- All Rights Reserved Reading location - IP/workstation name: [email or web address]
[2018-12-05 12:23] LABS: ALANINE AMINOTRANSFERASE 22 U/L (9-52); ALBUMIN 4.4 g/dL (3.5-5.0); ALKALINE PHOSPHATASE 34 U/L (38-126); ANION GAP 12 (5-19); ASPARTATE AMINO TRANSFERASE 20 U/L (14-36); BILIRUBIN,DIRECT 0.3 mg/dL (0.0-0.4); BILIRUBIN,TOTAL 0.3 mg/dL (0.2-1.3); BLOOD UREA NITROGEN 16 mg/dL (7-20); CARBON DIOXIDE 29 mmol/L (22-30); CHLORIDE 102 mmol/L (98-107); CREATINE KINASE 80 U/L (30-135); GLUCOSE 203 mg/dL (75-110); POTASSIUM 3.8 mmol/L (3.6-5.0); SODIUM 142.9 mmol/L (137-145); TOTAL PROTEIN 7.1 g/dL (6.3-8.2)
[2018-12-05 12:34] LABS: CREATINE KINASE MB 1.12 ng/mL (<4.55)
[2018-12-05 12:35] LABS: TROPONIN I < 0.012 ng/mL
[2018-12-05] MEDS ORDERED: KETOROLAC TROMETHAMINE INJ/PF 30 MG/1 ML SDV IV ONE (13:08)
--- NOTE | 2018-12-05 13:21 | ER Document Report ---
ED General - General Chief Complaint: Pain All Over Stated Complaint: MUSCLE ACHES Time Seen by Provider: 12/05/18 11:04 Primary Care Provider: DERIK DIETZ PA-C [Primary Care Provider] - Follow up as needed TRAVEL OUTSIDE OF THE [place] IN LAST 30 DAYS: No - HPI Notes: Patient is a 68-year-old female that presents to the emergency department for chief complaint of generalized pain. Patient states over the last 3 to 4 days she has had generalized pain in her upper and lower extremities. She describes it as a "rolling pin rolling over my legs from my feet up to my hips and my fingertips up to my shoulders". She has taken Tylenol at home which gives her symptomatic relief. She denies any trauma or injury. She does report that she has had one "shredded stool" that was yesterday. Today she had a normal firm formed bowel movement. She denies any abdominal discomfort nausea or vomiting. She denies any dysuria fevers, chills, shortness of breath and chest pain. She did report a heaviness in her chest that felt similar to the rolling pin sensation in her extremities. That symptom lasted for a second and has since resolved. She denied any stabbing chest pain palpitations or dyspnea. Patient states she is concerned because she was septic in September and does not want to be septic again. Past Medical History: A. fib, diverticulitis, diabetes, hypertension Past Surgical History: Reviewed in chart Social History: Denies tobacco, drug and alcohol use Family History: Reviewed and noncontributory for presenting illness Allergies: Reviewed, see documented allergy list. REVIEW OF SYSTEMS: CONSTITUTIONAL : No fever No chills No diaphoresis No recent illness EENT: No vision changes No congestion No sore throat CARDIOVASCULAR: No chest pain No palpitations RESPIRATORY: No shortness of breath No cough No difficulty breathing GASTROINTESTINAL: No abdominal pain No nausea No vomiting diarrhea GENITOURINARY: No dysuria No hematuria No difficulty urinating MUSCULOSKELETAL: No back pain leg pain arm pain SKIN: No rashes No lesions LYMPHATIC: No swollen, enlarged glands. NEUROLOGICAL: No lightheadedness No headache No weakness No paresthesias PSYCHIATRIC: No anxiety No depression PHYSICAL EXAMINATION: Vital signs reviewed, nursing noted reviewed. GENERAL: Well-appearing, obese and in no acute distress. HEAD: Atraumatic, normocephalic. EYES: Eyes appear normal, extraocular movements intact, sclera anicteric, conjunctiva are normal. ENT: nares patent, oropharynx clear without exudates. Moist mucous membranes. NECK: Normal range of motion, supple without lymphadenopathy LUNGS: Breath sounds clear to auscultation bilaterally and equal. No wheezes rales or rhonchi. HEART: Regular rate and rhythm without murmurs ABDOMEN: Soft, nontender, normoactive bowel sounds. No rebound, guarding, or rigidity. No masses appreciated. EXTREMITIES: Tenderness to palpation diffusely in all extremities with no bony deformity or external signs of injury, normal range of motion of all upper and lower extremity joints with no joint effusions or erythema, pelvis stable, trace pretibial edema bilaterally, symmetric NEUROLOGICAL: No focal neurological deficits. Moves all extremities spontaneo usly Motor and sensory grossly intact on exam. PSYCH: Anxious, rapid pressured speech, normal affect. SKIN: Warm, Dry, normal turgor, no rashes or lesions noted on exposed skin - Related Data Allergies/Adverse Reactions: bacitracin [From Neosporin] Allergy (Verified 12/05/18 10:38) balsam lilia [Balsam Lilia] Allergy (Verified 12/05/18 10:38) benzyl alcohol Allergy (Verified 12/05/18 10:38) cortisone Allergy (Verified 12/05/18 10:38) epoxy resin Allergy (Verified 12/05/18 10:38) ethylenediamine Allergy (Verified 12/05/18 10:38) formaldehyde Allergy (Verified 12/05/18 10:38) gramicidin D [From Neosporin] Allergy (Verified 12/05/18 10:38) neomycin sulfate [From Neosporin] Allergy (Verified 12/05/18 10:38) nystatin Allergy (Verified 12/05/18 10:38) polyethylene glycol Allergy (Verified 12/05/18 10:38) polymyxin B sulfate [From Neosporin] Allergy (Verified 12/05/18 10:38) propylene glycol Allergy (Verified 12/05/18 10:38) rosin Allergy (Verified 12/05/18 10:38) terconazole [From Terazol 3] Allergy (Verified 12/05/18 10:38) tioconazole [From Monistat 1 (tioconazole)] Allergy (Verified 12/05/18 10:38) ultrasound coupling medium Allergy (Verified 12/05/18 10:38) ANTIHYSTAMINES Allergy (Uncoded 12/05/18 10:38) CHROME Allergy (Uncoded 12/05/18 10:38) DIHYDROCHLORIDE Allergy (Uncoded 12/05/18 10:38) GREEN SOAP Allergy (Uncoded 12/05/18 10:38) STAINLESS STEEL Allergy (Uncoded 12/05/18 10:38) TAPE Allergy (Uncoded 12/05/18 10:38) Past Medical History - Social History Smoking Status: Never Smoker Frequency of alcohol use: None Drug Abuse: None Family History: COPD, Hypertension, Other - Dementia Patient has suicidal ideation: No Patient has homicidal ideation: No - Past Medical History Cardiac Medical History: Reports: Hx Atrial Fibrillation, Hx Coronary Artery Disease, Hx Hypercholesterolemia, Hx Hypertension Denies: Hx Heart Attack Pulmonary Medical History: Reports: Hx Asthma - POSSIBLY, NO CURRENT MEDS, Hx Pneumonia - COUPLE YRS AGO Denies: Hx Bronchitis, Hx COPD Neurological Medical History: Denies: Hx Cerebrovascular Accident, Hx Seizures Endocrine Medical History: Reports: Hx Diabetes Mellitus Type 2 Renal/ Medical History: Denies: Hx Peritoneal Dialysis GI Medical History: Reports: Hx Irritable Bowel Musculoskeletal Medical History: Reports Hx Arthritis - GENERALIZED, Reports Hx Fibromyalgia Psychiatric Medical History: Reports: Hx Depression Past Surgical History: Reports: Hx Orthopedic Surgery - Immunizations Hx Diphtheria, Pertussis, Tetanus Vaccination: Yes Physical Exam - Vital signs Vitals: Temp Pulse Resp BP Pulse Ox 97.4 F 75 16 133/61 H 96 12/05/18 10:42 12/05/18 10:42 12/05/18 10:42 12/05/18 10:42 12/05/18 10:42 Course - Re-evaluation Re-evalutation: 12/05/18 13:22 Vitals reviewed. Nursing notes reviewed. Patient is hemodynamically stable. She is not febrile or tachycardic. She has no leukocytosis patient is not meeting any sirs criteria. She has a negative chest x-ray and urinalysis. She has normal electrolytes and renal function.. Patient had complained of heaviness in triage however she states that lasted for a minute and this symptom is atypical. Her EKG shows no acute ischemic changes and her troponin is negative. I am not currently suspicious for ACS. Patient was given Toradol in the ED for pain control. She has no history of trauma or focal bony tenderness to necessitate further imaging. Laboratory 12/05/18 12/05/18 12/05/18 11:16 11:16 11:16 WBC 6.7 RBC 4.72 Hgb 13.7 Hct 41.6 MCV 88 MCH 29.1 MCHC 33.0 RDW 13.7 Plt Count 305 Seg Neutrophils % 71.3 Lymphocytes % 19.3 Monocytes % 4.6 Eosinophils % 4.4 Basophils % 0.4 Absolute Neutrophils 4.7 Absolute Lymphocytes 1.3 Absolute Monocytes 0.3 Absolute Eosinophils 0.3 Absolute Basophils 0.0 Sodium 142.9 Potassium 3.8 Chloride 102 Carbon Dioxide 29 Anion Gap 12 BUN 16 Creatinine 1.06 Est GFR ( Amer) > 60 Est GFR (Non-Af Amer) 51 L Glucose 203 H Calcium 10.0 Total Bilirubin 0.3 Direct Bilirubin 0.3 Neonat Total Bilirubin Not Reportable Neonat Direct Bilirubin Not Reportable Neonat Indirect Bili Not Reportable AST 20 ALT 22 Alkaline Phosphatase 34 L Creatine Kinase 80 CK-MB (CK-2) 1.12 Troponin I < 0.012 Total Protein 7.1 Albumin 4.4 Urine Color Urine Appearance Urine pH Ur Specific [place] Urine Protein Urine Glucose (UA) Urine Ketones Urine Blood Urine Nitrite Urine Bilirubin Urine Urobilinogen Ur Leukocyte Esterase Urine WBC (Auto) Urine RBC (Auto) U Hyaline Cast (Auto) Squamous Epi Cells Auto Urine Mucus (Auto) Urine Ascorbic Acid 12/05/18 11:16 WBC RBC Hgb Hct MCV MCH MCHC RDW Plt Count Seg Neutrophils % Lymphocytes % Monocytes % Eosinophils % Basophils % Absolute Neutrophils Absolute Lymphocytes Absolute Monocytes Absolute Eosinophils Absolute Basophils Sodium Potassium Chloride Carbon Dioxide Anion Gap BUN Creatinine Est GFR ( Amer) Est GFR (Non-Af Amer) Glucose Calcium Total Bilirubin Direct Bilirubin Neonat Total Bilirubin Neonat Direct Bilirubin Neonat Indirect Bili AST ALT Alkaline Phosphatase Creatine Kinase CK-MB (CK-2) Troponin I Total Protein Albumin Urine Color YELLOW Urine Appearance SLIGHTLY-CLOUDY Urine pH 5.0 Ur Specific [place] 1.020 Urine Protein NEGATIVE Urine Glucose (UA) 50 H Urine Ketones NEGATIVE Urine Blood NEGATIVE Urine Nitrite NEGATIVE Urine Bilirubin NEGATIVE Urine Urobilinogen NEGATIVE Ur Leukocyte Esterase NEGATIVE Urine WBC (Auto) 3 Urine RBC (Auto) 1 U Hyaline Cast (Auto) 1 Squamous Epi Cells Auto 2 Urine Mucus (Auto) OCC Urine Ascorbic Acid NEGATIVE Chest X-Ray 12/05/18 11:14 IMPRESSION: NO ACUTE RADIOGRAPHIC FINDING IN THE CHEST. She was recommended to take ibuprofen and Tylenol at home. She was told to return to the emergency room for new or worsening symptoms including fevers. S he will follow closely with her PCP on Friday. Patient is in agreement with this plan of care and stable at discharge. - Vital Signs Vital signs: Temp Pulse Resp BP Pulse Ox 97.4 F 75 16 133/61 H 96 12/05/18 10:42 12/05/18 10:42 12/05/18 10:42 12/05/18 10:42 12/05/18 10:42 - Laboratory Result Diagrams: 12/05/18 11:16 12/05/18 11:16 Laboratory results interpreted by me: 12/05/18 12/05/18 11:16 11:16 Est GFR (Non-Af Amer) 51 L Glucose 203 H Alkaline Phosphatase 34 L Urine Glucose (UA) 50 H - EKG Interpretation by Me Additional EKG results interpreted by me: 12/05/18 13:24 Interpreted by myself 1135: Normal sinus rhythm, rate 7, normal axis, no ectopy,3 T wave flattening diffusely, no STEMI Discharge - Discharge Clinical Impression: Myalgia Condition: Stable Disposition: HOME, SELF-CARE Instructions: Myalagia (Muscle Pain) ([facility]) Additional Instructions: Please return to the emergency department if you have any worsening, or concern of your symptoms. Please return to the emergency department if you develop chest pain, difficulty breathing, severe abdominal pain, or ongoing vomiting. Please follow-up with your primary care physician in 2-3 days and any other recommended physicians. If prescribed, take all medications as directed. If you have any questions or concerns do not hesitate to return the emergency department for evaluation. Referrals: DERIK DIETZ PA-C [Primary Care Provider] - 12/07/18
[2018-12-05 13:51] VITALS: BP 132/60
== END 2018-12-05 13:36 | disposition home or self-care (01) ==
LOC: ER 10:35
DX: M79.10 Myalgia, unspecified site (principal); I48.91 Unspecified atrial fibrillation; I25.10 Atherosclerotic heart disease of native coronary artery without angina pectoris; E78.00 Pure hypercholesterolemia, unspecified; I10 Essential (primary) hypertension; E11.9 Type 2 diabetes mellitus without complications
CPT/HCPCS: 93005; 99284; 96374; 36415; 87086; 82553; 82550; 85025; 80053; 81001; 84484; 71046; 93010; J1885

== ENCOUNTER 2018-12-12 01:51 | Inpatient (IN) | payer MEDICARE, BC ==
[2018-12-12] MEDS ORDERED: DILTIAZEM HCL/D5W 125 MG/125 ML RTUINJ IV PRN ×2 (02:23→04:33)
[2018-12-12] MEDS ORDERED: DILTIAZEM HCL INJ 25 MG/5 ML VIAL IV ONE (02:23)
[2018-12-12 02:48] LABS: ABSOLUTE BASOPHILS # (AUTO) 0.1 10^3/uL (0.0-0.2); ABSOLUTE EOSINOPHILS # (AUTO) 0.2 10^3/uL (0.0-0.6); ABSOLUTE LYMPHOCYTES (AUTO) 2.1 10^3/uL (0.5-4.7); ABSOLUTE MONOCYTES (AUTO) 0.7 10^3/uL (0.1-1.4); ABSOLUTE NEUT (AUTO) 8.6 10^3/uL (1.7-8.2); BASOPHILS % (AUTO) 0.9 % (0-2); EOSINOPHILS % (AUTO) 1.6 % (0-6); HEMATOCRIT 42.4 % (36.0-47.0); LYMPHOCYTES % (AUTO) 18.3 % (13-45); MEAN CORPUSCULAR HEMOGLOBIN 28.6 pg (27.0-33.4); MEAN CORPUSCULAR VOLUME 87 fl (80-97); MONOCYTES % (AUTO) 6.2 % (3-13); PLATELET COUNT 303 10^3/uL (150-450); RED CELL DISTRIBUTION WIDTH 13.5 % (11.5-14.0); TOTAL CELLS COUNTED % (AUTO) 100 %; WHITE BLOOD COUNT 11.7 10^3/uL (4.0-10.5)
[2018-12-12 02:50] LABS: ALANINE AMINOTRANSFERASE 26 U/L (9-52); ALBUMIN 4.5 g/dL (3.5-5.0); ALKALINE PHOSPHATASE 37 U/L (38-126); ANION GAP 12 (5-19); ASPARTATE AMINO TRANSFERASE 21 U/L (14-36); BILIRUBIN,DIRECT 0.3 mg/dL (0.0-0.4); BILIRUBIN,TOTAL 0.3 mg/dL (0.2-1.3); BLOOD UREA NITROGEN 21 mg/dL (7-20); CALCIUM 10.4 mg/dL (8.4-10.2); CARBON DIOXIDE 23 mmol/L (22-30); CHLORIDE 106 mmol/L (98-107); GLUCOSE 157 mg/dL (75-110); POTASSIUM 4.1 mmol/L (3.6-5.0); SODIUM 141.1 mmol/L (137-145); TOTAL PROTEIN 7.4 g/dL (6.3-8.2)
--- NOTE | 2018-12-12 03:06 | ER Document Report ---
ED General - General Chief Complaint: Palpitations Stated Complaint: CHEST PAIN Time Seen by Provider: 12/12/18 02:20 Primary Care Provider: DERIK DIETZ PA-C [Primary Care Provider] - Follow up as needed Notes: Patient is a 68-year-old female with a past medical history of paroxysmal atrial fibrillation who presents with vomiting, palpitations, and chest burning that started approximately 2 hours prior to presentation. Patient states that her symptoms came on abruptly, have been constant since onset, regarded as being severe. Chest discomfort is described as a constant, burning, mild to moderate intensity. States this feels very similar to when she has had atrial fibrillation with rapid ventricular response in the past. Nothing is been noted to improve or worsen her symptoms since onset. She has not seen her primary care physician regarding today's concerns. TRAVEL OUTSIDE OF THE [place] IN LAST 30 DAYS: No - Related Data Allergies/Adverse Reactions: bacitracin [From Neosporin] Allergy (Verified 12/12/18 02:36) balsam dixon [Balsam Alverda] Allergy (Verified 12/12/18 02:36) benzyl alcohol Allergy (Verified 12/12/18 02:36) cortisone Allergy (Verified 12/12/18 02:36) epoxy resin Allergy (Verified 12/12/18 02:36) ethylenediamine Allergy (Verified 12/12/18 02:36) formaldehyde Allergy (Verified 12/12/18 02:36) gramicidin D [From Neosporin] Allergy (Verified 12/12/18 02:36) neomycin sulfate [From Neosporin] Allergy (Verified 12/12/18 02:36) nystatin Allergy (Verified 12/12/18 02:36) polyethylene glycol Allergy (Verified 12/12/18 02:36) polymyxin B sulfate [From Neosporin] Allergy (Verified 12/12/18 02:36) propylene glycol Allergy (Verified 12/12/18 02:36) rosin Allergy (Verified 12/12/18 02:36) terconazole [From Terazol 3] Allergy (Verified 12/12/18 02:36) tioconazole [From Monistat 1 (tioconazole)] Allergy (Verified 12/12/18 02:36) ultrasound coupling medium Allergy (Verified 12/12/18 02:36) ANTIHYSTAMINES Allergy (Uncoded 12/12/18 02:36) CHROME Allergy (Uncoded 12/12/18 02:36) DIHYDROCHLORIDE Allergy (Uncoded 12/12/18 02:36) GREEN SOAP Allergy (Uncoded 12/12/18 02:36) STAINLESS STEEL Allergy (Uncoded 12/12/18 02:36) TAPE Allergy (Uncoded 12/12/18 02:36) Past Medical History - General Information source: Patient - Social History Smoking Status: Never Smoker Frequency of alcohol use: None Drug Abuse: None Family History: COPD, Hypertension, Other - Dementia Patient has suicidal ideation: No Patient has homicidal ideation: No - Past Medical History Cardiac Medical History: Reports: Hx Atrial Fibrillation, Hx Coronary Artery Disease, Hx Hypercholesterolemia, Hx Hypertension Denies: Hx Heart Attack Pulmonary Medical History: Reports: Hx Asthma - POSSIBLY, NO CURRENT MEDS, Hx Pneumonia - COUPLE YRS AGO Denies: Hx Bronchitis, Hx COPD Neurological Medical History: Denies: Hx Cerebrovascular Accident, Hx Seizures Endocrine Medical History: Reports: Hx Diabetes Mellitus Type 2 Renal/ Medical History: Denies: Hx Peritoneal Dialysis GI Medical History: Reports: Hx Irritable Bowel Musculoskeletal Medical History: Reports Hx Arthritis - GENERALIZED, Reports Hx Fibromyalgia Psychiatric Medical History: Reports: Hx Depression Past Surgical History: Reports: Hx Orthopedic Surgery - Immunizations Hx Diphtheria, Pertussis, Tetanus Vaccination: Yes Review of Systems - Review of Systems Notes: Constitutional: Negative for fever. HENT: Negative for sore throat. Eyes: Negative for visual changes. Cardiovascular: Positive for chest discomfort and palpitations Respiratory: Negative for shortness of breath. Gastrointestinal: Negative for abdominal pain, positive for vomiting Genitourinary: Negative for dysuria. Musculoskeletal: Negative for back pain. Skin: Negative for rash. Neurological: Negative for headaches, weakness or numbness. 10 point ROS negative except as marked above and in HPI. Physical Exam - Vital signs Vitals: Temp Pulse Resp BP Pulse Ox 98.2 F 132 H 20 148/77 H 97 12/12/18 02:03 12/12/18 02:03 12/12/18 02:03 12/12/18 02:03 12/12/18 02:03 Interpretation: Hypertensive, Tachycardic Notes: PHYSICAL EXAMINATION: GENERAL: No acute distress HEAD: Atraumatic, normocephalic. EYES: Pupils equal round and reactive to light, extraocular movements intact, sclera anicteric, conjunctiva are normal. ENT: nares patent, oropharynx clear without exudates. Moist mucous membranes. NECK: Normal range of motion, supple without lymphadenopathy LUNGS: Breath sounds clear to auscultation bilaterally and equal. No wheezes rales or rhonchi. HEART: Irregularly irregular tachycardia without murmurs ABDOMEN: Soft, nontender, normoactive bowel sounds. No guarding, no rebound. No masses appreciated. EXTREMITIES: Normal range of motion, no pitting or edema. No cyanosis. NEUROLOGICAL: No focal neurological deficits. Moves all extremities spontaneously and on command. PSYCH: Normal mood, normal affect. SKIN: Warm, Dry, normal turgor, no rashes or lesions noted. Course - Re-evaluation Re-evalutation: 12/12/18224 Patient presents in A. fib with rapid ventricular response heart rates into the 150s at time of initial presentation. Notes associated chest burning and vomiting as well as diaphoresis which she states she has had in the past with episodes of A. fib. Apparently at baseline she has paroxysmal atrial fibrillation. On assessment patient is nontoxic in appearance although markedly tachycardic with a rapidly varying rate. She was given a bolus of diltiazem 10 mg, infusion subsequently started thereafter. Patient's labs are pending. Will continue to reassess at regular intervals. She is in guarded condition secondary to ongoing A. fib with rapid ventricular response. 12/12/18 03:25 Patient remains persistently tachycardic currently at 136. Remains in A. fib with RVR. Labs unremarkable, troponin negative. Will continue to monitor. 12/12/18 03:34 Patient is having increasing periods of sinus rhythm on dilt drip at 10. We are being to wean down the diltiazem. I discussed case with Dr. Loya who is accepted the patient to [facility]. - Vital Signs Vital signs: Temp Pulse Resp BP Pulse Ox 98.2 F 138 H 18 138/122 H 97 12/12/18 02:03 12/12/18 02:28 12/12/18 02:27 12/12/18 02:27 12/12/18 02:27 - Laboratory Result Diagrams: 12/12/18 02:22 12/12/18 02:22 Laboratory results interpreted by me: 12/12/18 12/12/18 02:22 02:22 WBC 11.7 H Absolute Neutrophils 8.6 H BUN 21 H Est GFR (Non-Af Amer) 51 L Glucose 157 H Calcium 10.4 H Alkaline Phosphatase 37 L - Diagnostic Test Radiology reviewed: Image reviewed, Reports reviewed Radiology results interpreted by me: 12/12/18 03:34 Chest x-ray: No acute infiltrate or pneumothorax - EKG Interpretation by Me Additional EKG results interpreted by me: 12/12/18 03:26 A. fib with rapid ventricular response, heart rate 116, intermittent PACs, no ST elevations or depressions. QTC 490. Critical Care Note - Critical Care Note Total time excluding time spent on procedures (mins): 36 Comments: Critical care time spent obtaining history from patient or surrogate, discussions with consultants, development of treatment plan with patient or surrogate, evaluation of patient's response to treatment, examination of patient, ordering and performing treatments and interventions, ordering and review of laboratory studies, re-evaluation of patient's condition, ordering and review of radiographic studies and review of old charts Discharge - Discharge Clinical Impression: Atrial fibrillation with RVR, Burning chest pain Nausea and vomiting Qualifiers: Vomiting type: unspecified Vomiting Intractability: non-intractable Qualified Code(s): R11.2 - Nausea with vomiting, unspecified Condition: Fair Disposition: ADMITTED INPATIENT Admitting Provider: Shalini (Hospitalist) Unit Admitted: IMCU Referrals: DERIK DIETZ PA-C [Primary Care Provider] - Follow up as needed
[2018-12-12] MEDS ORDERED: NITROGLYCERIN 0.4 MG/TAB 25 TAB/BOTTLE SL PRN (03:21)
[2018-12-12] MEDS ORDERED: RINGERS SOLUTION,LACTATED 500 ML IV ONE (03:22)
[2018-12-12] MEDS ORDERED: ASPIRIN 81 MG TABLET, CHEWABLE PO ONE (03:22)
[2018-12-12] MEDS ORDERED: FAMOTIDINE 20 MG TABLET PO ONE (03:27)
--- NOTE | 2018-12-12 03:27 | RADIOLOGY REPORT (SQ) ---
EXAM DESCRIPTION: XR CHEST 1 VIEW COMPLETED DATE/TME: 12/12/2018 02:24 CLINICAL HISTORY: 68 years, Female, cp COMPARISON: 09/26/2018 chest NUMBER OF VIEWS: 1 TECHNIQUE: Portable chest LIMITATIONS: None. FINDINGS: Heart size normal. Mild atheromatous change thoracic aorta. Osteopenia. Lungs clear. No pneumothorax IMPRESSION: No acute cardiopulmonary process copyright 2010 [employer]- All Rights Reserved
[2018-12-12] MEDS ORDERED: INSULIN REG, HUMAN 100 UNIT/ML 3 ML VIAL (PYX) SUBCUT PRN (04:21)
[2018-12-12] MEDS ORDERED: MORPHINE SULFATE 10 MG/ML INJ IV PRN (04:21)
[2018-12-12] MEDS ORDERED: MAG HYDROX/AL HYDROX/SIMETH SUSP 30 ML UDCUP PO PRN (04:21)
[2018-12-12] MEDS ORDERED: ACETAMINOPHEN 325 MG TABLET PO PRN (04:21)
[2018-12-12] MEDS ORDERED: MAGNESIUM HYDROXIDE SUSP 30 ML UDCUP PO PRN (04:21)
[2018-12-12] MEDS ORDERED: TEMAZEPAM 15 MG CAPSULE PO PRN (04:30)
[2018-12-12] MEDS ORDERED: ONDANSETRON HCL INJ/PF 4 MG/2 ML SDV IV PRN (04:30)
[2018-12-12 05:34] LABS: APPEARANCE,URINE CLEAR; BILIRUBIN,URINE NEGATIVE (NEGATIVE); COLOR,URINE YELLOW; GLUCOSE, URINE NEGATIVE (NEGATIVE); KETONES,URINE NEGATIVE (NEGATIVE); LEUKOCYTE ESTERASE,URINE TRACE (NEGATIVE); NITRITE,URINE NEGATIVE (NEGATIVE); PROTEIN,URINE NEGATIVE (NEGATIVE); URINE SPECIFIC GRAVITY 1.017; UROBILINOGEN,URINE NEGATIVE mg/dL (<2.0)
[2018-12-12] MEDS: PANTOPRAZOLE SODIUM 40 MG TABLET.DR PO SCH ×2 (06:00→17:42)
[2018-12-12 06:13] LABS: CHOLESTEROL 198.16 mg/dL (0-200); CREATINE KINASE 59 U/L (30-135); TRIGLYCERIDES 182 mg/dL (<150)
[2018-12-12 06:24] LABS: DIRECT LDL 124 mg/dL (<100)
[2018-12-12 06:26] LABS: VLDL CHOLESTEROL 36.4 mg/dL (10-31)
[2018-12-12 06:29] LABS: FREE T3 5.11 pg/mL (2.77-5.27); FREE T4 (FREE THYROXINE) 1.39 ng/dL (0.78-2.19)
[2018-12-12 06:42] LABS: THYROID STIMULATING HORMONE 4.39 uIU/mL (0.47-4.68)
--- NOTE | 2018-12-12 07:22 | PDOC H&P ---
History of Present Illness Admission Date/PCP: 12/12/2018 3:30 AM DERIK DIETZ PA-C Patient complains of: Palpitations History of Present Illness: DERIK ADAM is a 68 year old female who presented to the emergency room with acute palpitations. She admits that approximately 2 hours prior to presentation she suddenly developed severe palpitations with a rapid and irregular heartbeat that has persisted since its onset until after treatment in the emergency room. The palpitations were accompanied by a constant, moderately intense, burning pressure-like midsternal chest discomfort without radiation. The palpitations were also accompanied by severe diaphoresis and moderate nausea with one episode of vomiting. She admits numerous prior similar episodes related to her paroxysmal atrial fibrillation with a rapid ventricular response. She has not identified any aggravating or ameliorating factors for her current episode of palpitations. In the emergency room she was found to have atrial fibrillation with a rapid ventricular response and was treated with diltiazem intravenously g iven as a bolus followed by an infusion. She has subsequently improved and will be admitted to hospital for further evaluation and treatment on the IMCU unit. Past Medical History Cardiac Medical History: Reports: Atrial Fibrillation, Coronary Artery Disease, Hyperlipidema, Hypertension Denies: Myocardial Infarction Pulmonary Medical History: Reports: Asthma - As a child, Pneumonia Denies: Chronic Obstructive Pulmonary Disease (COPD), Respiratory Failure EENT Medical History: Denies: Cataracts, Ears - Hearing aids Neurological Medical History: Denies: Hemorrhagic CVA, Ischemic CVA, Seizures Endocrine Medical History: Reports: Diabetes Mellitus Type 2, Obesity Denies: Diabetes Mellitus Type 1, Hyperthyroidism, Hypothyroidism Renal/ Medical History: Denies: Chronic Kidney Disease, Nephrolithiasis Malignancy Medical History: Reports: None GI Medical History: Denies: Cirrhosis, Crohn's Disease, Hepatitis, Ulcerative Colitis Musculoskeltal Medical History: Reports: Arthritis - Multiple joints on both sides of the body, Fibromyalgia Skin Medical History: Denies: Eczema, Psoriasis Psychiatric Medical History: Reports: Depression Denies: Alcohol Dependency, Substance Abuse, Tobacco Dependency Traumatic Medical History: Reports: None Hematology: Reports: Anemia Denies: Bleeding Tendencies Infectious Medical History: Reports: None Past Surgical History Past Surgical History: Reports: Orthopedic Surgery Social History Information Source: Patient Lives with: Alone Smoking Status: Never Smoker Frequency of Alcohol Use: None Hx Recreational Drug Use: No Drugs: None Hx Prescription Drug Abuse: No - Advance Directive Resuscitation Status: Full Code Surrogate healthcare decision maker:: Martha Platt Family History Family History: COPD, Hypertension, Other - Dementia Parental Family History Reviewed: Yes Children Family History Reviewed: No Sibling(s) Family History Reviewed.: Yes Medication/Allergy Home Medications: Apixaban [Eliquis 5 mg Tablet] 5 mg PO Q12 09/26/18 Cetirizine HCl [Zyrtec 10 mg Tablet] 1 tab PO DAILY 09/26/18 Fenofibrate,Micronized [Fenofibrate] 134 mg PO DAILY 09/26/18 Flecainide Acetate [Tambocor 100 mg Tablet] 100 mg PO Q12 09/26/18 Losartan Potassium 50 mg PO DAILY 09/26/18 Metformin HCl 1,000 mg PO BID 09/26/18 Metoprolol Succinate [Toprol Xl] 25 mg PO DAILY 09/26/18 Dulaglutide [Trulicity] 0.75 mg SQ SA@1000 09/27/18 Ciprofloxacin HCl [Cipro 500 mg Tablet] 500 mg PO Q12 #14 tablet 09/30/18 Metronidazole [Flagyl 500 mg Tablet] 500 mg PO Q8 #21 tablet 09/30/18 Allergies/Adverse Reactions: bacitracin [From Neosporin] Allergy (Verified 12/12/18 02:36) balsam dixon [Balsam Dixon] Allergy (Verified 12/12/18 02:36) benzyl alcohol Allergy (Verified 12/12/18 02:36) cortisone Allergy (Verified 12/12/18 02:36) epoxy resin Allergy (Verified 12/12/18 02:36) ethylenediamine Allergy (Verified 12/12/18 02:36) formaldehyde Allergy (Verified 12/12/18 02:36) gramicidin D [From Neosporin] Allergy (Verified 12/12/18 02:36) neomycin sulfate [From Neosporin] Allergy (Verified 12/12/18 02:36) nystatin Allergy (Verified 12/12/18 02:36) polyethylene glycol Allergy (Verified 12/12/18 02:36) polymyxin B sulfate [From Neosporin] Allergy (Verified 12/12/18 02:36) propylene glycol Allergy (Verified 12/12/18 02:36) rosin Allergy (Verified 12/12/18 02:36) terconazole [From Terazol 3] Allergy (Verified 12/12/18 02:36) tioconazole [From Monistat 1 (tioconazole)] Allergy (Verified 12/12/18 02:36) ultrasound coupling medium Allergy (Verified 12/12/18 02:36) ANTIHYSTAMINES Allergy (Uncoded 12/12/18 02:36) CHROME Allergy (Uncoded 12/12/18 02:36) DIHYDROCHLORIDE Allergy (Uncoded 12/12/18 02:36) GREEN SOAP Allergy (Uncoded 12/12/18 02:36) STAINLESS STEEL Allergy (Uncoded 12/12/18 02:36) TAPE Allergy (Uncoded 12/12/18 02:36) Review of Systems Constitutional: ABSENT: chills, fever(s) Eyes: ABSENT: visual disturbances, other - Eye pain Ears: ABSENT: hearing changes, other - Ear pain Nose, Mouth, and Throat: ABSENT: mouth pain, sore throat Cardiovascular: PRESENT: as per HPI, chest pain, palpitations. ABSENT: dyspnea on exertion, edema, orthropnea Respiratory: ABSENT: cough, dyspnea Gastrointestinal: PRESENT: as per HPI, nausea, vomiting. ABSENT: abdominal pain, constipation, diarrhea Genitourinary: ABSENT: dysuria, hematuria Musculoskeletal: ABSENT: joint swelling, muscle weakness Integumentary: ABSENT: pruritus, rash Neurological: ABSENT: confusion, convulsions, focal weakness, memory loss, syncope Psychiatric: ABSENT: anxiety, depression Endocrine: ABSENT: cold intolerance, heat intolerance Hematologic/Lymphatic: ABSENT: easy bleeding, easy bruising Physical Exam Vital Signs: Temp Pulse Resp BP Pulse Ox 98.2 F 138 H 18 138/122 H 97 12/12/18 02:03 12/12/18 02:28 12/12/18 02:27 12/12/18 02:27 12/12/18 02:27 Intake & Output 12/10/18 12/11/18 12/12/18 23:59 23:59 23:59 Intake Total 5 Balance 5 Weight 103.4 kg General appearance: PRESENT: no acute distress, cooperative, morbidly obese Head exam: PRESENT: atraumatic, normocephalic Eye exam: ABSENT: conjunctival injection, scleral icterus Ear exam: PRESENT: normal external ear exam. ABSENT: bleeding, drainage Mouth exam: PRESENT: dry mucosa, neck supple Neck exam: ABSENT: JVD, thyromegaly, tracheal deviation Respiratory exam: PRESENT: clear to auscultation aide, symmetrical, unlabored Cardiovascular exam: PRESENT: irregular rhythm - Irregularly irregular rate and rhythm. ABSENT: clicks, gallop, rubs Pulses: PRESENT: normal radial pulses, normal dorsalis pedis pul Vascular exam: PRESENT: normal capillary refill. ABSENT: pallor GI/Abdominal exam: PRESENT: normal bowel sounds, soft Rectal exam: PRESENT: deferred Extremities exam: ABSENT: joint swelling, pedal edema Musculoskeletal exam: ABSENT: deformity, dislocation Neurological exam: PRESENT: alert, oriented to person, oriented to place, oriented to time, oriented to situation, CN II-XII grossly intact. ABSENT: motor sensory deficit Psychiatric exam: PRESENT: appropriate affect, normal mood Skin exam: PRESENT: dry, intact, warm. ABSENT: jaundice, rash, urticaria Results Laboratory Results: 12/12/18 02:22 12/12/18 02:22 12/12/18 12/12/18 02:22 02:22 WBC 11.7 H RBC 4.90 Hgb 14.0 Hct 42.4 MCV 87 MCH 28.6 MCHC 33.0 RDW 13.5 Plt Count 303 Seg Neutrophils % 73.0 Lymphocytes % 18.3 Monocytes % 6.2 Eosinophils % 1.6 Basophils % 0.9 Absolute Neutrophils 8.6 H Absolute Lymphocytes 2.1 Absolute Monocytes 0.7 Absolute Eosinophils 0.2 Absolute Basophils 0.1 Sodium 141.1 Potassium 4.1 Chloride 106 Carbon Dioxide 23 Anion Gap 12 BUN 21 H Creatinine 1.07 Est GFR ( Amer) > 60 Est GFR (Non-Af Amer) 51 L Glucose 157 H Calcium 10.4 H Total Bilirubin 0.3 AST 21 ALT 26 Alkaline Phosphatase 37 L Total Protein 7.4 Albumin 4.5 12/12/18 02:22 Troponin I < 0.012 Impressions: Chest X-Ray 12/12/18 02:24 IMPRESSION: No acute cardiopulmonary process copyright 2011 [employer]- All Rights Reserved Assessment and Plan - Diagnosis (1) Atrial fibrillation with RVR Is this a current diagnosis for this admission?: Yes Plan: Patient be treated with continued diltiazem intravenous infusion titrated to control rate. Attempts will be made to convert the patient to oral therapeutic agent later today. (2) Burning chest pain Is this a current diagnosis for this admission?: Yes Plan: Patient's chest pain morphine sulfate 2 to 4 mg IV every 2 hours as needed on a sliding scale basis. Serial cardiac enzymes will be performed to evaluate for the potential causes of her chest pain. Daily CBCs, metabolic profiles and magnesium levels will also be obtained as part of her overall management and therapeutic assessment plan. (3) Nausea and vomiting Qualifiers: Vomiting type: unspecified Vomiting Intractability: non-intractable Qualified Code(s): R11.2 - Nausea with vomiting, unspecified Is this a current diagnosis for this admission?: Yes Plan: Patient's nausea and vomiting will be treated with Zofran 4 mg IV every 4 hours as needed. (4) HTN (hypertension) Qualifiers: Hypertension type: essential hypertension Qualified Code(s): I10 - Essential (primary) hypertension Is this a current diagnosis for this admission?: Yes Plan: Patient's hypertension will be controlled with her usual antihypertensive regiment, although modifications may be required in order to promote better control/prevention of her paroxysmal atrial fibrillation with rapid ventricular response. (5) Diabetes mellitus type 2 in obese Is this a current diagnosis for this admission?: Yes Plan: Patient be continued on her current diabetic regiment and a diabetic diet. Hemoglobin A1c will be obtained to evaluate the efficacy of her current therapy. (6) HLD (hyperlipidemia) Qualifiers: Hyperlipidemia type: unspecified Qualified Code(s): E78.5 - Hyperlipidemia, unspecified Is this a current diagnosis for this admission?: Yes Plan: A lipid profile will be obtained to assess the efficacy of the patient's current therapy. She will be continued on her current therapeutic regiment at the present time with adjustments to be made as appropriate. (7) CAD (coronary artery disease) Qualifiers: Coronary Disease-Associated Artery/Lesion type: [place] artery [place] vs. transplanted heart: [place] heart Associated angina: with unspecified angina Qualified Code(s): I25.119 - Atherosclerotic heart disease of [place] coronary artery with unspecified angina pectoris Is this a current diagnosis for this admission?: Yes Plan: Patient be maintained on her current medications for coronary artery disease. Adjustments may be required to her medical regiment to obtain better control/prevention of her atrial fibrillation with rapid ventricular response. - Time Time Spent with patient: 25-34 minutes Medications reviewed and adjusted accordingly: Yes Anticipated discharge: Home - Inpatient Certification Based on my medical assessment, after consideration of the patient's comorbidities, presenting symptoms, or acuity I expect that the services needed warrant INPATIENT care.: Yes I certify that my determination is in accordance with my understanding of Medicare's requirements for reasonable and necessary INPATIENT services [42 CFR 412.3e].: Yes Medical Necessity: Significant Comorbidiites Make Outpatient Treatment Too Risky, Need Close Monitoring Due to Risk of Patient Decompensation, Need For Continuous Telemetry Monitoring, Risk of Complication if Not Cared For in Hospital
--- NOTE | 2018-12-12 08:24 | ADVANCED CARE ---
- Diagnosis (1) Atrial fibrillation with RVR Diagnosis Current: Yes (2) Burning chest pain Diagnosis Current: Yes (3) Nausea and vomiting Diagnosis Current: Yes (4) HTN (hypertension) Diagnosis Current: Yes (5) Diabetes mellitus type 2 in obese Diagnosis Current: Yes (6) HLD (hyperlipidemia) Diagnosis Current: Yes (7) CAD (coronary artery disease) Diagnosis Current: Yes Attendance: Myself and the patient Resuscitation Status: Full Code Discussion: Patient I discussed her wishes should she suffer a cardiac or respiratory arrest during her hospital course. She is clear that she wishes to be a full code for any such event during her hospitalization. We further discussed her choice for a surrogate medical decision maker and she has determined that she would like this to be Martha Platt. She has not considered living will and at the present time does not want to entertain that discussion. Care Planning Goals: 1. Patient is entered as a full code medical record and medical orders. 2. Martha Platt is entered as the patient's surrogate medical decision maker. Document(s) Completed: 1. Patient is entered as a full code medical record and medical orders. 2. Martha Platt is entered as the patient's surrogate medical decision maker in the medical record. Time Spent: 16 minutes
--- NOTE | 2018-12-12 08:32 | EKG REPORT ---
SEVERITY:- NORMAL ECG - SINUS RHYTHM : Confirmed by: Ramon Plunkett MD 12-Dec-2018 08:32:39
--- NOTE | 2018-12-12 08:35 | EKG REPORT ---
SEVERITY:- ABNORMAL ECG - A-FLUTTER W/ PREDOM 2:1 AV BLOCK, A-RATE 227 NONSPECIFIC REPOL ABNORMALITY, DIFFUSE LEADS DUE TO DLUTTER WAVES. BORDERLINE PROLONGED QT INTERVAL : Confirmed by: Ramon Plunkett MD 12-Dec-2018 08:35:08
[2018-12-12] MEDS: DOCUSATE SODIUM 100 MG CAPSULE PO SCH ×2 (09:04→17:42)
[2018-12-12] MEDS: APIXABAN 5 MG TABLET PO SCH ×2 (09:05→22:09)
[2018-12-12 09:08] LABS: HEMATOCRIT 38.9 % (36.0-47.0); HEMOGLOBIN 13.1 g/dL (12.0-15.5); MEAN CORPUSCULAR HEMOGLOBIN 29.3 pg (27.0-33.4); MEAN CORPUSCULAR HGB CONC 33.6 g/dL (32.0-36.0); MEAN CORPUSCULAR VOLUME 87 fl (80-97); PLATELET COUNT 283 10^3/uL (150-450); RED BLOOD COUNT 4.46 10^6/uL (3.72-5.28); RED CELL DISTRIBUTION WIDTH 13.8 % (11.5-14.0)
[2018-12-12 09:28] LABS: ANION GAP 9 (5-19); BLOOD UREA NITROGEN 19 mg/dL (7-20); CALCIUM 9.6 mg/dL (8.4-10.2); CARBON DIOXIDE 27 mmol/L (22-30); CHLORIDE 104 mmol/L (98-107); GLUCOSE 122 mg/dL (75-110); POTASSIUM 3.9 mmol/L (3.6-5.0); SODIUM 139.7 mmol/L (137-145)
[2018-12-12 09:38] LABS: CREATINE KINASE MB 0.84 ng/mL (<4.55)
[2018-12-12 09:40] LABS: TROPONIN I < 0.012 ng/mL
[2018-12-12] MEDS ORDERED: DEXTROSE 50%-WATER SYRINGE 25 GM/50 ML DOSE IV PRN (10:00)
[2018-12-12] MEDS ORDERED: CETIRIZINE 10 MG TABLET PO SCH (10:00)
[2018-12-12] MEDS ORDERED: DEXTROSE 40% GEL 15 GM TUBE X 2 PO PRN (10:00)
[2018-12-12] MEDS ORDERED: LOSARTAN POTASSIUM 50 MG TABLET PO SCH (10:00)
[2018-12-12] MEDS ORDERED: METOPROLOL SUCCINATE 25 MG TAB.SR.24H PO SCH (10:00)
[2018-12-12] MEDS ORDERED: (PENDING PHARMACY ID) (Dulaglutide [Trulicity] 0.75 MG) SQ SCH (10:00)
[2018-12-12] MEDS ORDERED: DEXTROSE 50%-WATER SYRINGE 12.5 GM/25 ML DOSE IV PRN (10:00)
[2018-12-12] MEDS ORDERED: METFORMIN HCL 500 MG TABLET PO SCH (10:00)
[2018-12-12] MEDS ORDERED: DEXTROSE 40% GEL 15 GM TUBE PO PRN (10:00)
[2018-12-12] MEDS ORDERED: GLUCAGON,HUMAN RECOMB 1 MG INJ IM PRN (10:00)
[2018-12-12] MEDS: INSULIN LISPRO 100 UNIT/ML 3 ML VIAL SUBCUT SCH ×3 (12:02→22:08)
[2018-12-12 15:00] LABS: CREATINE KINASE MB 0.67 ng/mL (<4.55)
[2018-12-12 15:02] LABS: TROPONIN I < 0.012 ng/mL
--- NOTE | 2018-12-12 15:31 | Progress Note ---
Provider Note Provider Note: DERIK ADAM is a 68 year old female who presented to the emergency room with acute palpitations. She admits that approximately 2 hours prior to presentation she suddenly developed severe palpitations with a rapid and irregular heartbeat that has persisted since its onset until after treatment in the emergency room. The palpitations were accompanied by a constant, moderately intense, burning pressure-like midsternal chest discomfort without radiation. The palpitations were also accompanied by severe diaphoresis and moderate nausea with one episode of vomiting. She admits numerous prior similar episodes related to her paroxysmal atrial fibrillation with a rapid ventricular response. She has not identified any aggravating or ameliorating factors for her current episode of palpitations. In the emergency room she was found to have atrial fibrillation with a rapid ventricular response and was treated with diltiazem intravenously given as a bolus followed by an infusion. She has subsequently improved and will be admitted to hospital for further evaluation and treatment on the IMCU unit.
[2018-12-12 21:23] LABS: CREATINE KINASE MB 0.53 ng/mL (<4.55)
[2018-12-12] MEDS ORDERED: FLECAINIDE ACETATE 100 MG TABLET ONE (21:33)
[2018-12-12 21:37] LABS: TROPONIN I < 0.012 ng/mL
[2018-12-12] MEDS ORDERED: FLECAINIDE ACETATE 100 MG TABLET PO SCH (22:00)
[2018-12-13 04:42] LABS: HEMATOCRIT 37.6 % (36.0-47.0); HEMOGLOBIN 12.5 g/dL (12.0-15.5); MEAN CORPUSCULAR HEMOGLOBIN 28.8 pg (27.0-33.4); MEAN CORPUSCULAR HGB CONC 33.1 g/dL (32.0-36.0); MEAN CORPUSCULAR VOLUME 87 fl (80-97); PLATELET COUNT 268 10^3/uL (150-450); RED BLOOD COUNT 4.32 10^6/uL (3.72-5.28); RED CELL DISTRIBUTION WIDTH 13.6 % (11.5-14.0)
[2018-12-13 05:03] LABS: ANION GAP 8 (5-19); BLOOD UREA NITROGEN 18 mg/dL (7-20); CALCIUM 9.4 mg/dL (8.4-10.2); CARBON DIOXIDE 26 mmol/L (22-30); CHLORIDE 107 mmol/L (98-107); GLUCOSE 106 mg/dL (75-110); POTASSIUM 4.3 mmol/L (3.6-5.0); SODIUM 140.5 mmol/L (137-145)
[2018-12-13] MEDS: PANTOPRAZOLE SODIUM 40 MG TABLET.DR PO SCH (06:16)
[2018-12-13] MEDS: INSULIN LISPRO 100 UNIT/ML 3 ML VIAL SUBCUT SCH (07:34)
[2018-12-13 07:48] VITALS: BP 108/89
[2018-12-13] MEDS ORDERED: (PENDING PHARMACY ID) (Fenofibrate,Micronized [Fenofibrate] 134 MG) PO SCH (10:00)
--- NOTE | 2018-12-20 16:05 | PDOC DISCHARGE SUMMARY ---
General - Admit/Disc Date/PCP Admission Date/Primary Care Provider: 12/12/18 03:42 DERIK DIETZ PA-C Discharge Date: 12/13/18 - Discharge Diagnosis (1) Atrial fibrillation with RVR Is this a current diagnosis for this admission?: Yes (2) Burning chest pain Is this a current diagnosis for this admission?: Yes (3) Diabetes mellitus type 2 in obese Is this a current diagnosis for this admission?: Yes (4) HLD (hyperlipidemia) Is this a current diagnosis for this admission?: Yes (5) HTN (hypertension) Is this a current diagnosis for this admission?: Yes (6) Nausea and vomiting Is this a current diagnosis for this admission?: Yes - Additional Information Resuscitation Status: Full Code Discharge Diet: Cardiac, Diabetic Discharge Activity: Activity As Tolerated, Balance Activity w/Rest Home Medications: Apixaban [Eliquis 5 mg Tablet] 5 mg PO Q12 09/26/18 Fenofibrate,Micronized [Fenofibrate] 134 mg PO DAILY 09/26/18 Flecainide Acetate [Tambocor 100 mg Tablet] 100 mg PO Q12 09/26/18 Losartan Potassium 50 mg PO DAILY 09/26/18 Metformin HCl 1,000 mg PO BID 09/26/18 Metoprolol Succinate [Toprol Xl] 25 mg PO DAILY 09/26/18 Dulaglutide [Trulicity] 0.75 mg SQ FR@1000 09/27/18 History of Present Illness History of Present Illness: DERIK ADAM is a 68 year old female who presented to the emergency room with acute palpitations. She admits that approximately 2 hours prior to presentation she suddenly developed severe palpitations with a rapid and irregular heartbeat that has persisted since its onset until after treatment in the emergency room. The palpitations were accompanied by a constant, moderately intense, burning pressure-like midsternal chest discomfort without radiation. The palpitations were also accompanied by severe diaphoresis and moderate nausea with one episode of vomiting. She admits numerous prior similar episodes related to her paroxysmal atrial fibrillation with a rapid ventricular response. She has not identified any aggravating or ameliorating factors for her current episode of palpitations. In the emergency room she was found to have atrial fibrillation with a rapid ventricular response and was treated with diltiazem intravenously given as a bolus followed by an infusion. She has subsequently improved and will be admitted to hospital for further evaluation and treatment on the IMCU unit. Hospital Course Hospital Course: (1) Atrial fibrillation with RVR Rate controlled. Thyroid function test WNL. Troponins negative x4. Was given 1 dose of IV Cardizem in the ED. Transferred to [facility] with telemetry. Restarted on home dose of beta-blockers and apixaban. No recurrence during hospitalization. Was asked to follow-up with PCP and cardiology. (2) Burning chest pain Resolved. Troponin negative x4. (3) Diabetes mellitus type 2 in obese Controlled. A1c 6.3. Started on diabetic diet, sliding scale insulin, pre-meal insulin, long-acting insulin hypoglycemia protocol. Was asked to restart home meds and follow-up with PCP. (4) HLD (hyperlipidemia) Restarted on home meds. Diet and lifestyle modification recommended. (5) HTN (hypertension) Normotensive, euvolemic. Restarted on home meds. (6) Nausea and vomiting Resolved. Antiemetics provided. Physical Exam Vital Signs: Temp Pulse Resp BP Pulse Ox 98.0 F 62 20 108/89 H 97 12/13/18 08:13 12/13/18 08:13 12/13/18 08:13 12/13/18 08:13 12/13/18 08:13 General appearance: PRESENT: no acute distress, obese, well-developed, well- nourished Head exam: PRESENT: atraumatic, normocephalic Eye exam: PRESENT: conjunctiva pink, EOMI, PERRLA. ABSENT: scleral icterus Ear exam: PRESENT: normal external ear exam Mouth exam: PRESENT: moist, tongue midline Neck exam: ABSENT: carotid bruit, JVD, lymphadenopathy, thyromegaly Respiratory exam: PRESENT: clear to auscultation aide. ABSENT: rales, rhonchi, wheezes Cardiovascular exam: PRESENT: RRR. ABSENT: diastolic murmur, rubs, systolic murmur Pulses: PRESENT: normal dorsalis pedis pul Vascular exam: PRESENT: normal capillary refill GI/Abdominal exam: PRESENT: normal bowel sounds, soft. ABSENT: distended, guarding, mass, organolmegaly, rebound, tenderness Rectal exam: PRESENT: deferred Extremities exam: PRESENT: full ROM. ABSENT: calf tenderness, clubbing, pedal edema Neurological exam: PRESENT: alert, awake, oriented to person, oriented to place, oriented to time, oriented to situation, CN II-XII grossly intact. ABSENT: motor sensory deficit Psychiatric exam: PRESENT: appropriate affect, normal mood. ABSENT: homicidal ideation, suicidal ideation Skin exam: PRESENT: dry, intact, warm. ABSENT: cyanosis, rash Results Laboratory Results: 12/13/18 04:15 12/13/18 04:15 12/12/18 12/12/18 12/12/18 02:22 02:22 08:37 Creatine Kinase 59 CK-MB (CK-2) 0.84 Troponin I < 0.012 < 0.012 12/12/18 12/12/18 12/12/18 14:20 14:20 20:30 Creatine Kinase 45 39 CK-MB (CK-2) 0.67 Troponin I < 0.012 12/12/18 20:30 Creatine Kinase CK-MB (CK-2) 0.53 Troponin I < 0.012 Impressions: Chest X-Ray 12/12/18 02:24 IMPRESSION: No acute cardiopulmonary process copyright 2010 [employer]- All Rights Reserved Qualifiers - * PATIENT BEING DISCHARGED WITH ANY OF THE FOLLOWING DIAGNOSIS: No Acute Heart Failure - Is this a Heart Failure Patient?: No
== END 2018-12-13 08:55 | disposition home or self-care (01) | DRG 310 ==
LOC: ER 01:51 → EH 03:42 → 3S 05:20
PROVIDERS: ADMIT Emergency Medicine; ATTEND Emergency Medicine
DX: I48.0 Paroxysmal atrial fibrillation (principal); I25.10 Atherosclerotic heart disease of native coronary artery without angina pectoris; E78.5 Hyperlipidemia, unspecified; I10 Essential (primary) hypertension; E11.9 Type 2 diabetes mellitus without complications; E66.9 Obesity, unspecified; M79.7 Fibromyalgia; F32.9 Major depressive disorder, single episode, unspecified; D64.9 Anemia, unspecified; Z60.2 Problems related to living alone; Z88.4 Allergy status to anesthetic agent; Z79.899 Other long term (current) drug therapy; Z79.01 Long term (current) use of anticoagulants; Z83.6 Family history of other diseases of the respiratory system; Z82.49 Family history of ischemic heart disease and other diseases of the circulatory system; Z79.84 Long term (current) use of oral hypoglycemic drugs; Z88.1 Allergy status to other antibiotic agents; Z88.3 Allergy status to other anti-infective agents; Z88.8 Allergy status to other drugs, medicaments and biological substances
CPT/HCPCS: 36415; 71045; 80048; 80053; 80061; 81001; 82550; 82553; 82962; 83036; 83735; 84439; 84443; 84481; 84484; 85025; 85027; 87086; 87088; 93005; 93010; 96365; 96376; 99291; J3490; J7120

== ENCOUNTER 2019-07-30 14:38 | Emergency (ER) | payer MEDICARE, BC ==
--- NOTE | 2019-07-30 16:05 | ER Document Report ---
ED General - General Chief Complaint: Fall Stated Complaint: FALL/LEFT SIDE PAIN/HEADACHE Time Seen by Provider: 07/30/19 15:50 Primary Care Provider: DERIK DIETZ PA-C [Primary Care Provider] - Follow up in 3-5 days TRAVEL OUTSIDE OF THE [place] IN LAST 30 DAYS: No - HPI Notes: 69-year-old female to the emergency department with complaints of headache, neck pain, left upper arm pain, left wrist pain, low back pain, facial pain after sustaining a fall this morning prior to arrival. She states that she is coming down the stairs and there were towels on them. She states she thinks she got hung up in the talus. She states that she fell but she put out her left hand and extended her wrist. She states that she thinks she may have sprained her wrist. She states she hit her head but did not have loss of consciousness, nausea vomiting, dizziness. She states that she also has neck pain but denies any numbness and tingling down in the hands. She states that she has low back pain but denies any saddle paresthesia, radiculopathy, bladder bowel incontinence, urinary tension. She states that she took some Tylenol and it did help some. She states she told her primary care about this and they were told her to come to the emergency department and get head CT. She is on Eliquis. She denies any bruising to her body. She does admit that when she takes a big deep breath her ribs hurt as well on the left side. - Related Data Allergies/Adverse Reactions: bacitracin [From Neosporin] Allergy (Verified 12/12/18 02:36) balsam dixon [Balsam [place]] Allergy (Verified 12/12/18 02:36) benzyl alcohol Allergy (Verified 12/12/18 02:36) cortisone Allergy (Verified 12/12/18 02:36) epoxy resin Allergy (Verified 12/12/18 02:36) ethylenediamine Allergy (Verified 12/12/18 02:36) formaldehyde Allergy (Verified 12/12/18 02:36) gramicidin D [From Neosporin] Allergy (Verified 12/12/18 02:36) neomycin sulfate [From Neosporin] Allergy (Verified 12/12/18 02:36) nystatin Allergy (Verified 12/12/18 02:36) polyethylene glycol Allergy (Verified 12/12/18 02:36) polymyxin B sulfate [From Neosporin] Allergy (Verified 12/12/18 02:36) propylene glycol Allergy (Verified 12/12/18 02:36) rosin Allergy (Verified 12/12/18 02:36) terconazole [From Terazol 3] Allergy (Verified 12/12/18 02:36) tioconazole [From Monistat 1 (tioconazole)] Allergy (Verified 12/12/18 02:36) ultrasound coupling medium Allergy (Verified 12/12/18 02:36) ANTIHYSTAMINES Allergy (Uncoded 12/12/18 02:36) CHROME Allergy (Uncoded 12/12/18 02:36) DIHYDROCHLORIDE Allergy (Uncoded 12/12/18 02:36) GREEN SOAP Allergy (Uncoded 12/12/18 02:36) STAINLESS STEEL Allergy (Uncoded 12/12/18 02:36) TAPE Allergy (Uncoded 12/12/18 02:36) Past Medical History - General Information source: Patient - Social History Smoking Status: Never Smoker Frequency of alcohol use: Rare Drug Abuse: None Family History: COPD, Hypertension, Other - Dementia Patient has suicidal ideation: No Patient has homicidal ideation: No - Past Medical History Cardiac Medical History: Reports: Hx Atrial Fibrillation, Hx Coronary Artery Disease, Hx Hypercholesterolemia, Hx Hypertension Denies: Hx Heart Attack Pulmonary Medical History: Reports: Hx Asthma - As a child, Hx Pneumonia Denies: Hx Bronchitis, Hx COPD, Hx Respiratory Failure Neurological Medical History: Denies: Hx Cerebrovascular Accident, Hx Seizures Endocrine Medical History: Reports: Hx Diabetes Mellitus Type 2. Denies: Hx Diabetes Mellitus Type 1, Hx Hyperthyroidism, Hx Hypothyroidism Renal/ Medical History: Denies: Hx Peritoneal Dialysis GI Medical History: Reports: Hx Irritable Bowel. Denies: Hx Cirrhosis, Hx Crohn's Disease, Hx Hepatitis, Hx Ulcerative Colitis Musculoskeletal Medical History: Reports Hx Arthritis - Multiple joints on both sides of the body, Reports Hx Fibromyalgia Skin Medical History: Denies Hx Eczema, Denies Hx Psoriasis Psychiatric Medical History: Reports: Hx Depression Infectious Medical History: Denies: Hx Hepatitis Past Surgical History: Reports: Hx Orthopedic Surgery - Immunizations Hx Diphtheria, Pertussis, Tetanus Vaccination: Yes Review of Systems - Review of Systems Constitutional: denies: Chills, Diaphoresis, Fever EENT: See HPI, Other - Facial pain Cardiovascular: denies: Chest pain, Palpitations, Syncope, Dizziness, Lightheaded Respiratory: Hurts to breathe - See HPI. denies: Cough, Short of breath Gastrointestinal: denies: Abdominal pain, Diarrhea, Nausea, Vomiting, Constipation Female Genitourinary: No symptoms reported Musculoskeletal: See HPI Skin: No symptoms reported Neurological/Psychological: Headaches. denies: Numbness, Tingling -: Yes All other systems reviewed and negative Physical Exam - Vital signs Vitals: Temp Pulse Resp BP Pulse Ox 98.0 F 69 16 141/55 H 96 07/30/19 15:20 07/30/19 15:20 07/30/19 15:20 07/30/19 15:20 07/30/19 15:20 Interpretation: Normal - General General appearance: Appears well, Alert Notes: Parent patient in no acute distress. - HEENT Head: Normocephalic, Atraumatic Eyes: Normal Pupils: PERRL Fundascopic: Normal Ears: Normal External canal: Normal Tympanic membrane: Normal Sinus: Normal Nasal: Normal Mouth/Lips: Normal, Other - Patient has a bridge in her mouth. It does not appear to be loose. But patient states she feels like it is shifting. There is no mouth lesions. There is no dental fracture or laceration. No: Dental fracture, Laceration Mucous membranes: Dry Pharynx: Normal. No: Uvular edema, Potential airway comprom. Neck: Other - There is tenderness to palpation over the midline cervical spine with no step-off or deformity. - Respiratory Respiratory status: No respiratory distress Chest status: Nontender Breath sounds: Normal. No: Rales, Rhonchi, Wheezing Chest palpation: Normal - Cardiovascular Rhythm: Regular Heart sounds: Normal auscultation Murmur: No - Abdominal Inspection: Normal Distension: No distension Bowel sounds: Normal Tenderness: Nontender. No: Tender, McBurney's point, Larsen's sign, Guarding, Rebound Organomegaly: No organomegaly - Back Back: Normal, Tender Notes: There is tenderness to palpation to the lumbar midline spine. Negative straight leg raise bilaterally. No step-off or deformity. There is no tenderness to palpation over the thoracic midline spine - Extremities General upper extremity: Normal inspection General lower extremity: Normal inspection Notes: There is tenderness to palpation over the posterior aspect of the left humerus and to the left wrist. There is no deformity. There is no erythema or skin lacerations. Patient has increased pain with movement of both upper left extremity and the left wrist. However handgrip is 5 out of 5 bilaterally. There is no snuffbox tenderness bilaterally. Cap refill is less than 2 seconds in all fingers. Pulses are intact and equal throughout. Nontender to palpation of her bilateral hips, knees, ankles, feet. Patient is able to ambulate without difficulty. - Neurological Neuro grossly intact: Yes Cognition: Normal Orientation: AAOx4 [place] Coma Scale Eye Opening: Spontaneous [place] Coma Scale Verbal: Oriented [place] Coma Scale Motor: Obeys Commands [place] Coma Scale Total: 15 Speech: Normal Cranial nerves: Normal. No: Facial palsy, Forehead sparing, Gaze palsy, Sensory deficit, Tongue deviation Cerebellar coordination: Normal. No: Gait ataxia Motor strength normal: LUE, RUE, LLE, RLE Additional motor exam normals: Equal dependency program director. No: Pronator drift Sensory: Normal - Psychological Associated symptoms: Normal affect, Normal mood - Skin Skin Temperature: Warm Skin Moisture: Dry Skin Color: Normal Course - Re-evaluation Re-evalutation: Impression: Fall, headache or minor head injurydoubt concussion, neck strain, facial pain, upper arm strain, wrist sprain. Placed a wrist splint to the wrist. Otherwise patient has very reassuring radiology imaging studies with no acute fracture. We will plan to send home with muscle relaxants. Patient will use Tylenol for pain. She is to follow-up with her primary care physician without fail. - Vital Signs Vital signs: Temp Pulse Resp BP Pulse Ox 97.8 F 65 16 125/70 99 07/30/19 18:10 07/30/19 18:10 07/30/19 18:10 07/30/19 18:10 07/30/19 18:10 - Diagnostic Test Radiology reviewed: Image reviewed, Reports reviewed Procedures - Immobilization Left Wrist Pre-Proc Neuro Vasc Exam: Normal Immobilizer type: Cock-up - Velcro wrist splint Performed by: PCT Post-Proc Neuro Vasc Exam: Normal, Unchanged from pre-exam Alignment checked and good: Yes Discharge - Discharge Clinical Impression: Fall Qualifiers: Encounter type: initial encounter Qualified Code(s): W19.XXXA - Unspecified fall, initial encounter Headache Qualifiers: Headache type: unspecified Headache chronicity pattern: acute headache Intractability: not intractable Qualified Code(s): R51 - Headache Neck strain Qualifiers: Encounter type: initial encounter Qualified Code(s): S16.1XXA - Strain of muscle, fascia and tendon at neck level, initial encounter Muscle strain, upper arm Qualifiers: Encounter type: initial encounter Laterality: left Qualified Code(s): S46.912A - Strain of unspecified muscle, fascia and tendon at shoulder and upper arm level, left arm, initial encounter Left wrist sprain Qualifiers: Encounter type: initial encounter Qualified Code(s): S63.502A - Unspecified sprain of left wrist, initial encounter Condition: Stable Disposition: HOME, SELF-CARE Instructions: Headache ([facility]), Neck Injury (Cervical Strain) ([facility]), Wrist Sprain ([facility]) Additional Instructions: Apply ice 3 times a day for 20 minutes at a time. Return if any worsening symptoms. Follow-up with primary care. Take muscle relaxant as prescribed. Prescriptions: Methocarbamol [Robaxin 500 mg Tablet] 500 mg PO QID #20 tablet Referrals: DERIK DIETZ PA-C [Primary Care Provider] - Follow up in 3-5 days
--- NOTE | 2019-07-30 17:09 | RADIOLOGY REPORT (SQ) ---
EXAM DESCRIPTION: CT HEAD WITHOUT COMPLETED DATE/TIME: 07/30/2019 4:56 pm REASON FOR STUDY: fall, headache, neck pain, arm pain COMPARISON: 01/04/2018 TECHNIQUE: Axial images acquired through the brain without intravenous contrast. Images reviewed wi th bone, brain and subdural windows. Additional sagittal and coronal reconstructions were generated. Images stored on PACS. All CT scanners at this facility use dose modulation, iterative reconstruction, and/or weight based d osing when appropriate to reduce radiation dose to as low as reasonably achievable (ALARA). [facility]: Dose Right [facility]: CareDose [facility]: Dose Right [facility]: Teradose 4D [facility]: Smart [employer] RADIATION DOSE: mGy. LIMITATIONS: None. FINDINGS: VENTRICLES: Normal size and contour. CEREBRUM: No masses. No hemorrhage. No midline shift. No evidence for acute infarction. Normal gra y/white matter differentiation. No areas of low density in the white matter. CEREBELLUM: No masses. No hemorrhage. No alteration of density. No evidence for acute infarction. EXTRAAXIAL SPACES: No fluid collections. No masses. ORBITS AND GLOBE: No intra- or extraconal masses. Normal contour of globe without masses. CALVARIUM: No fracture. PARANASAL SINUSES: No fluid or mucosal thickening. SOFT TISSUES: No mass or hematoma. OTHER: No other significant finding. IMPRESSION: NORMAL BRAIN CT WITHOUT CONTRAST. EVIDENCE OF ACUTE STROKE: NO. COMMENT: Quality ID # [id number]: Final reports with documentation of one or more dose reduction techniques (e.g., Automated exposure control, adjustment of the mA and/or kV according to patient size, use of iterative reconstruction technique) TECHNICAL DOCUMENTATION: JOB ID: [id number] [employer]- All Rights Reserved Reading location - IP/workstation name: [email or web address]
--- NOTE | 2019-07-30 17:10 | RADIOLOGY REPORT (SQ) ---
EXAM DESCRIPTION: CT CERVICAL SPINE WITHOUT COMPLETED DATE/TIME: 07/30/2019 4:56 pm REASON FOR STUDY: fall, headache, neck pain, arm pain COMPARISON: 01/04/2018 TECHNIQUE: Axial images acquired through the cervical spine without intravenous contrast. Images re viewed with lung, soft tissue and bone windows. Reconstructed coronal and sagittal MPR images review ed. Images stored on PACS. All CT scanners at this facility use dose modulation, iterative reconstruction, and/or weight based d osing when appropriate to reduce radiation dose to as low as reasonably achievable (ALARA). [facility]: Dose Right [facility]: CareDose [facility]: Dose Right [facility]: Teradose 4D [facility]: [employer] RADIATION DOSE: mGy. LIMITATIONS: None. FINDINGS: ALIGNMENT: Anatomic. MINERALIZATION: Normal. VERTEBRAL BODIES: No fractures or dislocation. DISCS: No significant disc disease. FACETS, LATERAL MASSES, POSTERIOR ELEMENTS: No fractures. No dislocation. No acute findings. HARDWARE: None in the spine. VISUALIZED RIBS: No fractures. LUNG APICES AND SOFT TISSUES: No significant or acute findings. OTHER: No other significant finding. IMPRESSION: NO ACUTE OR SIGNIFICANT FINDINGS IN THE CERVICAL SPINE. TECHNICAL DOCUMENTATION: JOB ID: [id number] Quality ID # [id number]: Final reports with documentation of one or more dose reduction techniques (e.g., Au tomated exposure control, adjustment of the mA and/or kV according to patient size, use of iterative reconstruction technique) 2010 [employer]- All Rights Reserved Reading location - IP/workstation name: [email or web address]
--- NOTE | 2019-07-30 17:13 | RADIOLOGY REPORT (SQ) ---
EXAM DESCRIPTION: CT FACIAL AREA WITHOUT COMPLETED DATE/TIME: 07/30/2019 4:56 pm REASON FOR STUDY: facial pain, fall, states bridge feels loose COMPARISON: 01/04/2018 TECHNIQUE: Noncontrasted images through the facial bones and orbits windowed for bone and soft tissu e. Additional coronal and sagittal reconstructed images reviewed. All images stored on PACS. All CT scanners at this facility use dose modulation, iterative reconstruction, and/or weight based d osing when appropriate to reduce radiation dose to as low as reasonably achievable (ALARA). [facility]: Dose Right [facility]: CareDose [facility]: Dose Right [facility]: Teradose 4D [facility]: [employer] RADIATION DOSE: CT Rad equipment meets quality standard of care and radiation dose reduction techniq ues were employed. CTDIvol: 23.2 - 53.2 mGy. DLP: 1887 mGy-cm. mGy. LIMITATIONS: None. FINDINGS: FACIAL BONES: No fracture or bone lesion. ORBITS: Intact. No fracture. Symmetric intact globes and retroorbital soft tissues. PARANASAL SINUSES: Clear. No significant mucosal thickening, mass or fluid. No nasal polyps. Maxill jenny sinus outlets are patent. SOFT TISSUES: No mass or edema. INFERIOR BRAIN: Limited view. No acute findings. OTHER: No other significant finding. IMPRESSION: NO ACUTE FINDINGS. TECHNICAL DOCUMENTATION: JOB ID: [id number] Quality ID # [id number]: Final reports with documentation of one or more dose reduction techniques (e.g., Au tomated exposure control, adjustment of the mA and/or kV according to patient size, use of iterative reconstruction technique) 2010 [employer]- All Rights Reserved Reading location - IP/workstation name: [email or web address]
--- NOTE | 2019-07-30 17:26 | RADIOLOGY REPORT (SQ) ---
EXAM DESCRIPTION: WRIST LEFT 3 VIEWS COMPLETED DATE/TIME: 07/30/2019 5:09 pm REASON FOR STUDY: wrist pain, fall COMPARISON: None. NUMBER OF VIEWS: Three views. TECHNIQUE: AP, lateral, and oblique radiographic images acquired of the left wrist. LIMITATIONS: None. FINDINGS: MINERALIZATION: Normal. BONES: No acute fracture or dislocation. No worrisome bone lesions. Normal alignment. SOFT TISSUES: No soft tissue swelling. No foreign body. OTHER: No other significant finding. IMPRESSION: NEGATIVE STUDY OF THE LEFT WRIST. NO RADIOGRAPHIC EVIDENCE OF ACUTE INJURY. TECHNICAL DOCUMENTATION: JOB ID: [id number] [employer]- All Rights Reserved Reading location - IP/workstation name: [email or web address]
--- NOTE | 2019-07-30 17:26 | RADIOLOGY REPORT (SQ) ---
EXAM DESCRIPTION: HUMERUS LEFT COMPLETED DATE/TIME: 07/30/2019 5:09 pm REASON FOR STUDY: arm pain, fall COMPARISON: None. NUMBER OF VIEWS: Two views. TECHNIQUE: Two radiographic images were acquired of the left humerus to include elbow and shoulder i n at least one projection. LIMITATIONS: None. FINDINGS: MINERALIZATION: Normal. BONES: No acute fracture or dislocation. No worrisome bone lesions. SOFT TISSUES: No obvious swelling or foreign body. OTHER: No other significant finding. IMPRESSION: NEGATIVE STUDY OF THE LEFT HUMERUS. NO RADIOGRAPHIC EVIDENCE OF ACUTE INJURY. TECHNICAL DOCUMENTATION: JOB ID: [id number] [employer]- All Rights Reserved Reading location - IP/workstation name: [email or web address]
--- NOTE | 2019-07-30 17:28 | RADIOLOGY REPORT (SQ) ---
EXAM DESCRIPTION: L SPINE WHOLE COMPLETED DATE/TIME: 07/30/2019 5:09 pm REASON FOR STUDY: low back pain, fall COMPARISON: None. NUMBER OF VIEWS: Five views including obliques. TECHNIQUE: AP, lateral, oblique, and sacral radiographic images acquired of the lumbar spine. LIMITATIONS: None. FINDINGS: MINERALIZATION: Normal. SEGMENTATION: Normal. No transitional anatomy. ALIGNMENT: Normal. VERTEBRAE: Maintained height. No fracture or worrisome bone lesion. DISCS: Multilevel degenerative disc disease. Disc space narrowing and osteophytes. POSTERIOR ELEMENTS: Pedicles and facets are intact. No pars defect or posterior arch defects. HARDWARE: None in the spine. PARASPINAL SOFT TISSUES: Normal. PELVIS: Intact as visualized. No fractures or worrisome bone lesions. SI joints intact. OTHER: No other significant finding. IMPRESSION: Multilevel degenerative disc disease. TECHNICAL DOCUMENTATION: JOB ID: [id number] [employer]- All Rights Reserved Reading location - IP/workstation name: [email or web address]
[2019-07-30 18:11] VITALS: BP 125/70
== END 2019-07-30 19:08 | disposition home or self-care (01) ==
LOC: ER 14:38
DX: S63.502A Unspecified sprain of left wrist, initial encounter (principal); S16.1XXA Strain of muscle, fascia and tendon at neck level, initial encounter; S46.912A Strain of unspecified muscle, fascia and tendon at shoulder and upper arm level, left arm, initial encounter; R51 Headache; M54.2 Cervicalgia; M79.622 Pain in left upper arm; M54.5 Low back pain; R07.1 Chest pain on breathing; W10.9XXA Fall (on) (from) unspecified stairs and steps, initial encounter; I25.10 Atherosclerotic heart disease of native coronary artery without angina pectoris; I10 Essential (primary) hypertension; E11.9 Type 2 diabetes mellitus without complications; I48.91 Unspecified atrial fibrillation; Z79.01 Long term (current) use of anticoagulants; Z97.2 Presence of dental prosthetic device (complete) (partial); Z88.8 Allergy status to other drugs, medicaments and biological substances; Z88.1 Allergy status to other antibiotic agents; Z88.3 Allergy status to other anti-infective agents; Z91.041 Radiographic dye allergy status; Z91.048 Other nonmedicinal substance allergy status
CPT/HCPCS: 99284; 73060; 72110; 73110; 70450; 70486; 72125; L3908

== ENCOUNTER → 2019-10-17 | Outpatient (CLI) | payer MEDICARE, BC ==
--- NOTE | 2019-10-17 12:31 | ER RDC ASSESSMENT REPORT ---
Intake - In the Last 14 days Have you traveled outside [place]?: No Have you been in close contact with someone CONFIRMED: No Worked in Healthcare?: No - Symptoms Subjective Fever(Cypress feverish): Yes Chills: Yes Muscule Aches: Yes Runny Nose: Yes Sore Throat: No Cough (New or worsening chronic cough): Yes Shortness of breath: Yes Nausea or Vomiting: No Headache: Yes Abdominal Pain: No Diarrhea(3 or more loose stools in last 24 hours): No - Do you have any of the following Chronic lung disease: Asthma or emphysema or COPD: No Cystic Fibrosis: No Diabetes: Yes High Blood Pressure: Yes Cardiovascular Disease: Yes Cardiovascular Disease Comment: Chronic A-Fib Chronic Kidney Disease: No Chronic Liver Disease: No Chronic blood disorder like Sickle Cell Disease: No 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 Neurologic condition that limits movement: No Developmental delay - Moderate to Severe: No Recent (within past 2 weeks) or current : No Morbid Obesity (>100 pounds over ideal weight): Yes Obesity Comment: Patient reports her weight as 230 pounds which equates to 105 kg and a BMI of 42.1 - Objective Temperature: 97.3 F Pulse Rate: 70 Respiratory Rate: 16 Blood Pressure: 127/88 O2 Sat by Pulse Oximetry: 94 Objective: Patient is a well-appearing 69-year-old female who presents today for COVID-19 screening. Disposition: Home; Selfcare General - General Stated Complaint: Upper respiratory symptoms x4 weeks Mode of Arrival: Ambulatory Information source: Patient Notes: The patient was evaluated during the global COVID 19 pandemic, and that diagnosis was suspected/considered upon their initial presentation. Their evaluation, treatment, and testing was consistent with current guidelines for patients who present with complaints or symptoms that may be related to COVID 19. Patient reports she was tested for Strep and Influenza last week by her PCP. No indication to repeat those tests today. - HPI Patient complains to provider of: Upper respiratory symptoms Onset: Other - 4 weeks Onset/Duration: Persistent Quality of pain: Achy Severity: Mild Pain Level: 1 Context: Generalized body aches. Associated symptoms: Body/muscle aches, Chills, Nonproductive cough, Headache, Rhinnorhea Exacerbated by: Denies Relieved by: Denies Similar symptoms previously: No Recently seen / treated by doctor: No - Related Data Allergies/Adverse Reactions: bacitracin [From Neosporin] Allergy (Verified 12/12/18 02:36) balsam lilia [Balsam Lilia] Allergy (Verified 12/12/18 02:36) benzyl alcohol Allergy (Verified 12/12/18 02:36) cortisone Allergy (Verified 12/12/18 02:36) epoxy resin Allergy (Verified 12/12/18 02:36) ethylenediamine Allergy (Verified 12/12/18 02:36) formaldehyde Allergy (Verified 12/12/18 02:36) gramicidin D [From Neosporin] Allergy (Verified 12/12/18 02:36) neomycin sulfate [From Neosporin] Allergy (Verified 12/12/18 02:36) nystatin Allergy (Verified 12/12/18 02:36) polyethylene glycol Allergy (Verified 12/12/18 02:36) polymyxin B sulfate [From Neosporin] Allergy (Verified 12/12/18 02:36) propylene glycol Allergy (Verified 12/12/18 02:36) rosin Allergy (Verified 12/12/18 02:36) terconazole [From Terazol 3] Allergy (Verified 12/12/18 02:36) tioconazole [From Monistat 1 (tioconazole)] Allergy (Verified 12/12/18 02:36) ultrasound coupling medium Allergy (Verified 12/12/18 02:36) ANTIHYSTAMINES Allergy (Uncoded 12/12/18 02:36) CHROME Allergy (Uncoded 12/12/18 02:36) DIHYDROCHLORIDE Allergy (Uncoded 12/12/18 02:36) GREEN SOAP Allergy (Uncoded 12/12/18 02:36) STAINLESS STEEL Allergy (Uncoded 12/12/18 02:36) TAPE Allergy (Uncoded 12/12/18 02:36) Past Medical History - General Information source: Patient - Social History Smoking Status: Never Smoker Cigarette use (# per day): No - Reports daily secondhand smoke exposure Chew tobacco use (# tins/day): No Smoking Education Provided: Yes - Negative effects of secondhand smoke Frequency of alcohol use: Occasional Drug Abuse: None Occupation: Retired Lives with: Family Family History: COPD, Hypertension, Other - Dementia Patient has suicidal ideation: No Patient has homicidal ideation: No - Past Medical History Cardiac Medical History: Reports: Hx Atrial Fibrillation, Hx Coronary Artery Disease, Hx Hypercholesterolemia, Hx Hypertension Denies: Hx Heart Attack Pulmonary Medical History: Reports: Hx Asthma - As a child, Hx Pneumonia Denies: Hx Bronchitis, Hx COPD, Hx Respiratory Failure Neurological Medical History: Denies: Hx Cerebrovascular Accident, Hx Seizures Endocrine Medical History: Reports: Hx Diabetes Mellitus Type 2. Denies: Hx Diabetes Mellitus Type 1, Hx Hyperthyroidism, Hx Hypothyroidism Renal/ Medical History: Denies: Hx Peritoneal Dialysis GI Medical History: Reports: Hx Irritable Bowel. Denies: Hx Cirrhosis, Hx Crohn's Disease, Hx Hepatitis, Hx Ulcerative Colitis Musculoskeletal Medical History: Reports Hx Arthritis - Multiple joints on both sides of the body, Reports Hx Fibromyalgia Skin Medical History: Denies Hx Eczema, Denies Hx Psoriasis Psychiatric Medical History: Reports: Hx Depression Infectious Medical History: Denies: Hx Hepatitis Past Surgical History: Reports: Hx Breast Surgery - L lumpectomy, Hx Genitourinary Surgery - bladder mesh, Hx Orthopedic Surgery Physical Exam - General In distress: None Notes: PHYSICAL EXAMINATION: GENERAL: Well-appearing and in no acute distress. HEAD: Atraumatic, normocephalic. EYES: sclera anicteric, conjunctiva are normal. ENT: nares patent. Moist mucous membranes. NECK: Normal range of motion, supple without lymphadenopathy. LUNGS: CTAB and equal. No wheezes rales or rhonchi. HEART: Regular rate and rhythm without murmurs. EXTREMITIES: Normal range of motion, no pitting edema. No cyanosis. BACK: No midline tenderness, no step-off or deformity. No CVA tenderness. NEUROLOGICAL: Cranial nerves grossly intact. Normal speech. PSYCH: Normal mood, normal affect. SKIN: Warm, Dry, normal color and turgor, no obvious lesions or rash noted. Diagnostic Results Laboratory Results: Patient advised at this time they are considered a Person Under Investigation (PUI) for the COVID-19 Coronavirus. They have been made aware it is currently taking 8-11 days to receive results, and the Health Department will call to advise them of their result, whether it is POSITIVE or NEGATIVE. Patient Education/Counseling Counseling/Education: Patient presents with upper respiratory symptoms worrisome for possible Covid 19. Patient does not have emergency worring symptoms such as difficulty breathing, shortness of breath, chest pain, pressure, confusion or cyanosis. Patient appears suitable for discharge. Patient's vital signs are stable and patient is nontoxic in appearance. Good return precautions have been discussed with patient, patient verbalized understanding and is agreeable with discharge plan of care at this time. Patient provided COVID 19 discharge instructions to include: As a person under investigation for Covid 19, the [facility] of Health and Human Services, division of public health advises you to adhere to the following guidance until your test results are reported to you. If your test result is positive, you will receive additional information from your provider and your local health department at that time. Remain at home until you are cleared by the health provider or public health authorities. Keep a log of visitors to your home, notify any visitors to your home of your isolation status. If you plan to move to a new address or leave the county, notify the local health department in your County. Call your doctor or seek care if you have an urgent medical need. Before seeking medical care, call ahead to get instructions from the provider before arriving at the medical office clinic or hospital. Notify them that you are being tested for the virus that causes Covid 19 so that arrangements can be made, as necessary, to prevent transmission to others in the healthcare setting. Next, notify the local health department in your county. If a medical emergency arises and you need to call 911, inform dispatch and the first responders that you are being tested for the virus that causes Covid 19. Next, notify the local health department in your county. Patient provided education on the negative effects of second hand smoke exposure. Guidance for worsening S/SX: For worsening symptoms, patient has been advised to contact their Primary Care Provider, or go to the nearest Emergency Department. RDC Discharge - Discharge Clinical Impression: COVID-19 Screening URI (upper respiratory infection) Qualifiers: URI type: unspecified URI Qualified Code(s): J06.9 - Acute upper respiratory infection, unspecified Condition: Stable Disposition: Home; Selfcare
[2019-10-17 12:36] VITALS: BP 127/88
== END ==
LOC: RDC 11:46
PROVIDERS: ATTEND Nurse Practitioner Family
DX: J06.9 Acute upper respiratory infection, unspecified (principal); Z20.828 Contact with and (suspected) exposure to other viral communicable diseases; R06.02 Shortness of breath; R05 Cough; R51 Headache; J34.89 Other specified disorders of nose and nasal sinuses; R09.89 Other specified symptoms and signs involving the circulatory and respiratory systems; M79.10 Myalgia, unspecified site; E11.9 Type 2 diabetes mellitus without complications; I10 Essential (primary) hypertension; I48.20 Chronic atrial fibrillation, unspecified; E66.01 Morbid (severe) obesity due to excess calories; Z68.41 Body mass index [BMI] 40.0-44.9, adult
CPT/HCPCS: U0003; G0463; 87635; 99211

== ENCOUNTER 2020-02-13 23:12 | Emergency (ER) | payer MEDICARE, BC ==
[2020-02-14] MEDS ORDERED: PREDNISONE 20 MG TABLET PO ONE (03:41)
[2020-02-14 03:52] VITALS: BP 114/78
--- NOTE | 2020-02-14 04:08 | ER Document Report ---
Entered by ROSA LAMBERT SCRIBE 02/14/20 0341 Acting as scribe for:THADDEUS HERNÁNDEZ IV, MD ED Skin Rash/Insect Bite/Abscs - General Chief Complaint: Hives Stated Complaint: RASH/NAUSEA/VOMITING/DIARRHEA Time Seen by Provider: 02/14/20 03:16 Primary Care Provider: DERIK DIETZ PA-C [Primary Care Provider] - Follow up as needed Mode of Arrival: Ambulatory Information source: Patient Notes: This 69 year old female patient with a history of multiple allergies presents to the ED today with complaints of a rash to the back of her thighs that developed prior to arrival. Patient states that the reaction may be due to a new laundry detergent or sitting on a leather couch without any shorts on. She notes that she is out of Benadryl tablets and has a Epi-Pen, but she doesn't know how to use it. Denies shortness of breath or facial swelling. TRAVEL OUTSIDE OF THE [place] IN LAST 30 DAYS: No - Related Data Allergies/Adverse Reactions: bacitracin [From Neosporin] Allergy (Verified 12/12/18 02:36) balsam dixon [Balsam Dixon] Allergy (Verified 12/12/18 02:36) benzyl alcohol Allergy (Verified 12/12/18 02:36) cortisone Allergy (Verified 12/12/18 02:36) epoxy resin Allergy (Verified 12/12/18 02:36) ethylenediamine Allergy (Verified 12/12/18 02:36) formaldehyde Allergy (Verified 12/12/18 02:36) gramicidin D [From Neosporin] Allergy (Verified 12/12/18 02:36) neomycin sulfate [From Neosporin] Allergy (Verified 12/12/18 02:36) nystatin Allergy (Verified 12/12/18 02:36) polyethylene glycol Allergy (Verified 12/12/18 02:36) polymyxin B sulfate [From Neosporin] Allergy (Verified 12/12/18 02:36) propylene glycol Allergy (Verified 12/12/18 02:36) rosin Allergy (Verified 12/12/18 02:36) terconazole [From Terazol 3] Allergy (Verified 12/12/18 02:36) tioconazole [From Monistat 1 (tioconazole)] Allergy (Verified 12/12/18 02:36) ultrasound coupling medium Allergy (Verified 12/12/18 02:36) ANTIHYSTAMINES Allergy (Uncoded 12/12/18 02:36) CHROME Allergy (Uncoded 12/12/18 02:36) DIHYDROCHLORIDE Allergy (Uncoded 12/12/18 02:36) GREEN SOAP Allergy (Uncoded 12/12/18 02:36) STAINLESS STEEL Allergy (Uncoded 12/12/18 02:36) TAPE Allergy (Uncoded 12/12/18 02:36) Past Medical History - General Information source: Patient, [facility] Records - Social History Smoking Status: Never Smoker Cigarette use (# per day): No Chew tobacco use (# tins/day): No Smoking Education Provided: No Frequency of alcohol use: None Drug Abuse: None Family History: Reviewed & Not Pertinent, COPD, Hypertension, Other - Dementia Patient has suicidal ideation: No Patient has homicidal ideation: No - Past Medical History Cardiac Medical History: Reports: Hx Atrial Fibrillation, Hx Coronary Artery Disease, Hx Hypercholesterolemia, Hx Hypertension Pulmonary Medical History: Reports: Hx Asthma - As a child, Hx Pneumonia Endocrine Medical History: Reports: Hx Diabetes Mellitus Type 2 GI Medical History: Reports: Hx Irritable Bowel Musculoskeletal Medical History: Reports Hx Arthritis - Multiple joints on both sides of the body, Reports Hx Fibromyalgia Psychiatric Medical History: Reports: Hx Depression Past Surgical History: Reports: Hx Genitourinary Surgery - bladder mesh, Hx Lumpectomy - Left, Hx Orthopedic Surgery - Immunizations Hx Diphtheria, Pertussis, Tetanus Vaccination: Yes Review of Systems - Review of Systems Constitutional: No symptoms reported EENT: See HPI. denies: Other - Facial swelling Cardiovascular: No symptoms reported Respiratory: See HPI. denies: Short of breath Gastrointestinal: No symptoms reported Genitourinary: No symptoms reported Female Genitourinary: No symptoms reported Musculoskeletal: No symptoms reported Skin: See HPI, Rash Hematologic/Lymphatic: No symptoms reported Neurological/Psychological: No symptoms reported -: Yes All other systems reviewed and negative Physical Exam - Vital signs Vitals: Temp Pulse Resp BP Pulse Ox 97.8 F 84 20 177/83 H 99 02/13/20 23:59 02/13/20 23:59 02/13/20 23:59 02/13/20 23:59 02/13/20 23:59 - General General appearance: Appears well, Alert In distress: None - HEENT Head: Normocephalic, Atraumatic Eyes: Normal Pupils: PERRL - Respiratory Respiratory status: No respiratory distress Chest status: Nontender Breath sounds: Normal Chest palpation: Normal - Cardiovascular Rhythm: Regular Heart sounds: Normal auscultation Murmur: No Friction rub: No Gallop: None auscultated - Abdominal Inspection: Normal Distension: No distension Bowel sounds: Normal Tenderness: Nontender - Abdomen soft Organomegaly: No organomegaly - Back Back: Normal, Nontender - Extremities General upper extremity: Normal inspection General lower extremity: Normal inspection - Neurological Neuro grossly intact: Yes Orientation: AAOx4 Hawks Coma Scale Eye Opening: Spontaneous Sheyla Coma Scale Verbal: Oriented Sheyla Coma Scale Motor: Obeys Commands Sheyla Coma Scale Total: 15 - Psychological Associated symptoms: Normal affect, Normal mood - Skin Skin irregularity: Erythema - Mild macular erythema noted to back of thighs bila terally Course - Re-evaluation Re-evalutation: 02/14/20 03:43 Diagnosis, plan for treatment discussed with patient. All questions were answered prior to discharge. Emergency signs and symptoms, reasons to return to the emergency department discussed with patient. - Vital Signs Vital signs: Temp Pulse Resp BP Pulse Ox 97.8 F 84 20 177/83 H 99 02/13/20 23:59 02/13/20 23:59 02/13/20 23:59 02/13/20 23:59 02/13/20 23:59 Discharge - Discharge Clinical Impression: Contact dermatitis Qualifiers: Contact dermatitis type: unspecified Contact dermatitis trigger: unspecified trigger Qualified Code(s): L25.9 - Unspecified contact dermatitis, unspecified cause Condition: Stable Disposition: HOME, SELF-CARE Additional Instructions: Return to the Emergency Department without delay if any worse. HOME CARE INSTRUCTIONS & INFORMATION: Thank you for choosing us for your medical needs. We hope you're satisfied with the care you received. After you leave, you must properly care for your problem and, at the same time, observe its progress. Any condition can change. Some illnesses can change rapidly over hours or days. If your condition worsens, return to the Emergency Department or see your physician promptly. ABOUT YOUR X-RAYS AND EKG'S: If you had an EKG or X-rays taken, they have been read by the Emergency Physician. The X-rays and EKG's will also be read by a Radiologist or Hospice Clinical Manager within 24 hours. If discrepancies are noted, you will be notified by telephone. Please be certain the ED has a correct telephone number & address where you can be reached. Also, realize that some fractures or abnormalities do not show up on initial X-rays. If your symptoms continue, see your physician. ABOUT YOUR LABORATORY TEST: If you had laboratory tests, the results have been reviewed by the Emergency Physician. Some test results (for example cultures) may not be available for several days. You will be contacted if any test result shows you need additional treatment. Please be certain the ED has a correct telephone number and address where you can be reached. ABOUT YOUR MEDICATIONS: You will receive instructions on how to take your medicine on the prescription label you receive. Additional information may be provided by the Pharmacy. If you have questions afterwards, call the ED for clarification or further instructions. Some prescribed medications may cause drowsiness. Do not perform tasks such as driving a car or operating machinery without consulting your Pharmacist. If you feel you need a refill of pain medication, your condition will need re-evaluation. Please do not call for a refill of any medication. ABOUT YOUR SIGNATURE: Signature of this document acknowledges to followin. Understanding that you received emergency treatment and that you may be released before al medical problems are known or treated. Please be certain the ED has a correct phone number & address where you can be reached. 2. Acknowledgement that you will arrange for follow-up care as recommended. 3. Authorization for the Emergency Physician to provide information to your follow-up Physician in order to maximize your care. AT ANY TIME, IF YOUR SYMPTOMS CHANGE SIGNIFICANTLY OR WORSEN OR YOU DEVELOP NEW SYMPTOMS, RETURN TO THE EMERGENCY DEPARTMENT IMMEDIATELY FOR RE-EVALUATION. OUR GOAL IS TO PROVIDE EXCELLENT MEDICAL CARE! WE HOPE THAT WE HAVE MET YOUR EXPECTATIONS DURING YOUR EMERGENCY DEPARTMENT VISIT AND THAT YOU FEEL YOU HAVE RECEIVED EXCELLENT CARE! Prescriptions: Diphenhydramine HCl [Benadryl 25 mg Capsule] 25 mg PO Q4HP PRN #30 capsule PRN Reason: ALLERGIC REACTION, ITCHING Referrals: DERIK DIETZ PA-C [Primary Care Provider] - Follow up as needed I personally performed the services described in the documentation, reviewed and edited the documentation which was dictated to the scribe in my presence, and it accurately records my words and actions.
== END 2020-02-14 03:55 | disposition home or self-care (01) ==
LOC: ER 23:12
DX: L25.9 Unspecified contact dermatitis, unspecified cause (principal); I25.10 Atherosclerotic heart disease of native coronary artery without angina pectoris; I10 Essential (primary) hypertension; E11.9 Type 2 diabetes mellitus without complications; Z88.3 Allergy status to other anti-infective agents; Z88.8 Allergy status to other drugs, medicaments and biological substances; Z88.1 Allergy status to other antibiotic agents; Z91.041 Radiographic dye allergy status; Z91.048 Other nonmedicinal substance allergy status
CPT/HCPCS: 99283; A9270; J7512

== ENCOUNTER 2020-03-27 12:48 | Emergency (ER) | payer MEDICARE, BC ==
--- NOTE | 2020-03-27 14:10 | ER Document Report ---
ED Medical Screen (RME) - General Chief Complaint: Headache Stated Complaint: HEADACHES,MOUTH PAIN,NAUSEA Time Seen by Provider: 03/27/20 13:55 Primary Care Provider: DERIK DIETZ PA-C [Primary Care Provider] - Follow up as needed TRAVEL OUTSIDE OF THE [place] IN LAST 30 DAYS: No - HPI Notes: 03/27/20 14:08 69-year-old female to the emergency department with complaints of headache, nausea, diarrhea, generalized malaise. She states she has had a headache for most 4 weeks. She states that she felt like maybe she had a urinary tract infection along the same timeline initially her primary care physician told her she did not. It did not get a culture the urine but when a day that she grew out E. coli. On March 22 she got started on Augmentin. She denies any fevers, chills. She states that this past winter she was admitted to the hospital for urosepsis and she is concerned that her symptoms are starting to act much like they did when she had that. Denies any chest pain or shortness of breath. Denies any contact with positive COVID-19 exposures. She states she recently had antibody testing was negative. She is had 2 negative COVID-19 tests during the pandemic. I performed a brief medical screening exam on the patient determined that the patient needs further evaluation and management by main side provider. I have placed initial orders to help expedite care. - Related Data Allergies/Adverse Reactions: bacitracin [From Neosporin] Allergy (Verified 12/12/18 02:36) balsam lilia [Balsam Lilia] Allergy (Verified 12/12/18 02:36) benzyl alcohol Allergy (Verified 12/12/18 02:36) cortisone Allergy (Verified 12/12/18 02:36) epoxy resin Allergy (Verified 12/12/18 02:36) ethylenediamine Allergy (Verified 12/12/18 02:36) formaldehyde Allergy (Verified 12/12/18 02:36) gramicidin D [From Neosporin] Allergy (Verified 12/12/18 02:36) neomycin sulfate [From Neosporin] Allergy (Verified 12/12/18 02:36) nystatin Allergy (Verified 12/12/18 02:36) polyethylene glycol Allergy (Verified 12/12/18 02:36) polymyxin B sulfate [From Neosporin] Allergy (Verified 12/12/18 02:36) propylene glycol Allergy (Verified 12/12/18 02:36) rosin Allergy (Verified 12/12/18 02:36) terconazole [From Terazol 3] Allergy (Verified 12/12/18 02:36) tioconazole [From Monistat 1 (tioconazole)] Allergy (Verified 12/12/18 02:36) ultrasound coupling medium Allergy (Verified 12/12/18 02:36) ANTIHYSTAMINES Allergy (Uncoded 12/12/18 02:36) CHROME Allergy (Uncoded 12/12/18 02:36) DIHYDROCHLORIDE Allergy (Uncoded 12/12/18 02:36) GREEN SOAP Allergy (Uncoded 12/12/18 02:36) STAINLESS STEEL Allergy (Uncoded 12/12/18 02:36) TAPE Allergy (Uncoded 12/12/18 02:36) Past Medical History - Past Medical History Cardiac Medical History: Reports: Hx Atrial Fibrillation, Hx Coronary Artery Disease, Hx Hypercholesterolemia, Hx Hypertension Denies: Hx Heart Attack Pulmonary Medical History: Reports: Hx Asthma - As a child, Hx Pneumonia Denies: Hx Bronchitis, Hx COPD, Hx Respiratory Failure Neurological Medical History: Denies: Hx Cerebrovascular Accident, Hx Seizures Endocrine Medical History: Reports: Hx Diabetes Mellitus Type 2. Denies: Hx Diabetes Mellitus Type 1, Hx Hyperthyroidism, Hx Hypothyroidism Renal/ Medical History: Denies: Hx Peritoneal Dialysis GI Medical History: Reports: Hx Irritable Bowel. Denies: Hx Cirrhosis, Hx Crohn's Disease, Hx Hepatitis, Hx Ulcerative Colitis Musculoskeltal Medical History: Reports Hx Arthritis - Multiple joints on both sides of the body, Reports Hx Fibromyalgia Skin Medical History: Denies Hx Eczema, Denies Hx Psoriasis Psychiatric Medical History: Reports: Hx Depression Infectious Medical History: Denies: Hx Hepatitis Past Surgical History: Reports: Hx Breast Surgery - L lumpectomy, Hx Genitourinary Surgery - bladder mesh, Hx Lumpectomy - Left, Hx Orthopedic Surgery - Immunizations Hx Diphtheria, Pertussis, Tetanus Vaccination: Yes Doctor's Discharge - Discharge Referrals: DERIK DIETZ PA-C [Primary Care Provider] - Follow up as needed
[2020-03-27 15:08] LABS: ABSOLUTE BASOPHILS # (AUTO) 0.1 10^3/uL (0.0-0.2); ABSOLUTE EOSINOPHILS # (AUTO) 0.1 10^3/uL (0.0-0.6); ABSOLUTE LYMPHOCYTES (AUTO) 2.3 10^3/uL (0.5-4.7); ABSOLUTE MONOCYTES (AUTO) 0.5 10^3/uL (0.1-1.4); ABSOLUTE NEUT (AUTO) 5.1 10^3/uL (1.7-8.2); BASOPHILS % (AUTO) 1.4 % (0-2); EOSINOPHILS % (AUTO) 1.5 % (0-6); HEMATOCRIT 43.3 % (36.0-47.0); HEMOGLOBIN 14.7 g/dL (12.0-15.5); LYMPHOCYTES % (AUTO) 28.6 % (13-45); MEAN CORPUSCULAR HEMOGLOBIN 29.5 pg (27.0-33.4); MEAN CORPUSCULAR VOLUME 87 fl (80-97); MONOCYTES % (AUTO) 6.3 % (3-13); PLATELET COUNT 319 10^3/uL (150-450); RED CELL DISTRIBUTION WIDTH 13.7 % (11.5-14.0); SEGMENTED NEUTROPHILS % (AUTO) 62.2 % (42-78); TOTAL CELLS COUNTED % (AUTO) 100 %; WHITE BLOOD COUNT 8.2 10^3/uL (4.0-10.5)
[2020-03-27 15:12] LABS: APPEARANCE,URINE SLIGHTLY-CLOUDY; BILIRUBIN,URINE NEGATIVE (NEGATIVE); COLOR,URINE YELLOW; GLUCOSE, URINE NEGATIVE (NEGATIVE); KETONES,URINE NEGATIVE (NEGATIVE); PROTEIN,URINE NEGATIVE (NEGATIVE); URINE SPECIFIC GRAVITY 1.021; UROBILINOGEN,URINE NEGATIVE mg/dL (<2.0)
[2020-03-27 15:27] LABS: ALBUMIN 4.7 g/dL (3.5-5.0); ALKALINE PHOSPHATASE 43 U/L (38-126); ANION GAP 11 (5-19); ASPARTATE AMINO TRANSFERASE 29 U/L (14-36); BILIRUBIN,DIRECT 0.3 mg/dL (0.0-0.4); BILIRUBIN,TOTAL 0.4 mg/dL (0.2-1.3); BLOOD UREA NITROGEN 13 mg/dL (7-20); CALCIUM 10.4 mg/dL (8.4-10.2); CARBON DIOXIDE 27 mmol/L (22-30); CHLORIDE 103 mmol/L (98-107); GLUCOSE 114 mg/dL (75-110); POTASSIUM 4.3 mmol/L (3.6-5.0); TOTAL PROTEIN 7.5 g/dL (6.3-8.2)
--- NOTE | 2020-03-27 15:30 | RADIOLOGY REPORT (SQ) ---
EXAM DESCRIPTION: CT HEAD WITHOUT IMAGES COMPLETED DATE/TIME: 03/27/2020 2:13 pm REASON FOR STUDY: headache for 4 weeks COMPARISON: 07/30/2027 TECHNIQUE: Axial images acquired through the brain without intravenous contrast. Images reviewed wi th bone, brain and subdural windows. Additional sagittal and coronal reconstructions were generated. Images stored on PACS. All CT scanners at this facility use dose modulation, iterative reconstruction, and/or weight based d osing when appropriate to reduce radiation dose to as low as reasonably achievable (ALARA). [facility]: Dose Right [facility]: CareDose [facility]: Dose Right [facility]: Teradose 4D [facility]: [employer] RADIATION DOSE: CT Rad equipment meets quality standard of care and radiation dose reduction techniq ues were employed. CTDIvol: 53.2 mGy. DLP: 991 mGy-cm. mGy. LIMITATIONS: None. FINDINGS: VENTRICLES: Normal size and contour. CEREBRUM: No masses. No hemorrhage. No midline shift. No evidence for acute infarction. Normal gra y-white matter differentiation. There is intracranial atherosclerosis. CEREBELLUM: No masses. No hemorrhage. No alteration of density. No evidence for acute infarction. EXTRAAXIAL SPACES: No fluid collections. No masses. ORBITS AND GLOBE: No intra- or extraconal masses. Normal contour of globe without masses. CALVARIUM: No fracture. PARANASAL SINUSES: No fluid or mucosal thickening. SOFT TISSUES: No mass or hematoma. OTHER: No other significant finding. IMPRESSION: NO ACUTE INTRACRANIAL IMAGING FINDINGS. EVIDENCE OF ACUTE STROKE: NO. COMMENT: Quality ID # [id number]: Final reports with documentation of one or more dose reduction techniques (e.g., Automated exposure control, adjustment of the mA and/or kV according to patient size, use of iterative reconstruction technique) TECHNICAL DOCUMENTATION: JOB ID: [id number] [employer]- All Rights Reserved Reading location - IP/workstation name: [email or web address]
--- NOTE | 2020-03-27 17:40 | ER Document Report ---
ED General - General Mode of Arrival: Ambulatory Information source: Patient TRAVEL OUTSIDE OF THE [place] IN LAST 30 DAYS: No <ANEL PATRICK - Last Filed: 03/27/20 20:03> <MARTÍN CURIEL - Last Filed: 03/27/20 21:22> - General Chief Complaint: Headache >24 hrs old Stated Complaint: HEADACHES,MOUTH PAIN,NAUSEA Time Seen by Provider: 03/27/20 13:55 Primary Care Provider: DERIK DIETZ PA-C [COMMUNITY BASED STAFF] - Follow up as needed Notes: 69-year-old female patient with history of hypertension, hyperlipidemia, recurrent UTIs presenting with 2 to 3 days of nausea, vomiting, diarrhea, body a ches and shivering. She states this feels similar to the last time she had urosepsis. She denies any fever or chills. She reports that she had a nitrite positive urinalysis done at the doctor's office, she states they told her there was no urinary tract infection. She states she went back again a few days later a culture was done and she was found to have E. coli in her urine. They started her on Augmentin. She states that her diarrhea started immediately after taking the Augmentin. (ANEL PATRICK) - Related Data Allergies/Adverse Reactions: bacitracin [From Neosporin] Allergy (Verified 12/12/18 02:36) balsam dixon [Balsam Dixon] Allergy (Verified 12/12/18 02:36) benzyl alcohol Allergy (Verified 12/12/18 02:36) cortisone Allergy (Verified 12/12/18 02:36) epoxy resin Allergy (Verified 12/12/18 02:36) ethylenediamine Allergy (Verified 12/12/18 02:36) formaldehyde Allergy (Verified 12/12/18 02:36) gramicidin D [From Neosporin] Allergy (Verified 12/12/18 02:36) neomycin sulfate [From Neosporin] Allergy (Verified 12/12/18 02:36) nystatin Allergy (Verified 12/12/18 02:36) polyethylene glycol Allergy (Verified 12/12/18 02:36) polymyxin B sulfate [From Neosporin] Allergy (Verified 12/12/18 02:36) propylene glycol Allergy (Verified 12/12/18 02:36) rosin Allergy (Verified 12/12/18 02:36) terconazole [From Terazol 3] Allergy (Verified 12/12/18 02:36) tioconazole [From Monistat 1 (tioconazole)] Allergy (Verified 12/12/18 02:36) ultrasound coupling medium Allergy (Verified 12/12/18 02:36) ANTIHYSTAMINES Allergy (Uncoded 12/12/18 02:36) CHROME Allergy (Uncoded 12/12/18 02:36) DIHYDROCHLORIDE Allergy (Uncoded 12/12/18 02:36) GREEN SOAP Allergy (Uncoded 12/12/18 02:36) STAINLESS STEEL Allergy (Uncoded 12/12/18 02:36) TAPE Allergy (Uncoded 12/12/18 02:36) Past Medical History - General Information source: Patient - Social History Smoking Status: Unknown if Ever Smoked Frequency of alcohol use: None Drug Abuse: None Family History: COPD, Hypertension, Other - Past Medical History Cardiac Medical History: Reports: Hx Atrial Fibrillation, Hx Coronary Artery Disease, Hx Hypercholesterolemia, Hx Hypertension Denies: Hx Heart Attack Pulmonary Medical History: Reports: Hx Asthma - As a child, Hx Pneumonia Denies: Hx Bronchitis, Hx COPD, Hx Respiratory Failure Neurological Medical History: Denies: Hx Cerebrovascular Accident, Hx Seizures Endocrine Medical History: Reports: Hx Diabetes Mellitus Type 2. Denies: Hx Diabetes Mellitus Type 1, Hx Hyperthyroidism, Hx Hypothyroidism Renal/ Medical History: Denies: Hx Peritoneal Dialysis GI Medical History: Reports: Hx Irritable Bowel. Denies: Hx Cirrhosis, Hx Crohn 's Disease, Hx Hepatitis, Hx Ulcerative Colitis Musculoskeletal Medical History: Reports Hx Arthritis - Multiple joints on both sides of the body, Reports Hx Fibromyalgia Skin Medical History: Denies Hx Eczema, Denies Hx Psoriasis Psychiatric Medical History: Reports: Hx Depression Infectious Medical History: Denies: Hx Hepatitis Past Surgical History: Reports: Hx Breast Surgery - L lumpectomy, Hx Genitourinary Surgery - bladder mesh, Hx Lumpectomy - Left, Hx Orthopedic Surgery - Immunizations Hx Diphtheria, Pertussis, Tetanus Vaccination: Yes <ANEL PATRICK - Last Filed: 03/27/20 20:03> Review of Systems - Review of Systems Constitutional: Malaise EENT: No symptoms reported Cardiovascular: No symptoms reported Respiratory: No symptoms reported Gastrointestinal: Diarrhea, Nausea, Vomiting Female Genitourinary: Other - vaginal irritation Musculoskeletal: Muscle pain Skin: No symptoms reported Hematologic/Lymphatic: No symptoms reported Neurological/Psychological: No symptoms reported <ANEL PATRICK - Last Filed: 03/27/20 20:03> Physical Exam <ANEL PATRICK - Last Filed: 03/27/20 20:03> - Vital signs Vitals: Temp Pulse Resp BP Pulse Ox 97.8 F 79 18 151/68 H 99 03/27/20 17:00 03/27/20 17:00 03/27/20 17:00 03/27/20 17:00 03/27/20 17:00 - Notes Notes: PHYSICAL EXAMINATION: GENERAL: Well-appearing, well-nourished and in no acute distress. HEAD: Atraumatic, normocephalic. EYES: Pupils equal round and reactive to light, extraocular movements intact, conjunctiva are normal. ENT: Nares patent, oropharynx clear without exudates. Moist mucous membranes. NECK: Normal range of motion, supple without lymphadenopathy LUNGS: Breath sounds clear to auscultation bilaterally and equal. No wheezes rales or rhonchi. HEART: Regular rate and rhythm without murmurs ABDOMEN: Soft, nontender, nondistended abdomen. No guarding, no rebound. No masses appreciated. Female : deferred Musculoskeletal: Normal range of motion, no pitting or edema. No cyanosis. NEUROLOGICAL: Cranial nerves grossly intact. Normal speech, normal gait. Normal sensory, motor exams PSYCH: Normal mood, normal affect. SKIN: Warm, Dry, normal turgor, no rashes or lesions noted. (ANEL PATRICK) Course - Laboratory Result Diagrams: 03/27/20 14:48 03/27/20 14:48 <ANEL PATRICK - Last Filed: 03/27/20 20:03> - Laboratory Result Diagrams: 03/27/20 14:48 03/27/20 14:48 <MARTÍN CURIEL - Last Filed: 03/27/20 21:22> - Re-evaluation Re-evalutation: Patient appears well, nontoxic, vital signs reviewed and are reassuring. Patient's work-up today reveals normal laboratory investigations other than lactic acid of 3.1. Given patient's well appearance and lack of fever we will give her some IV fluids and recheck a lactic acid. If this lactate has not gone up we will discharge patient home. She was given a dose of Rocephin here in the emergency department. A urine culture is pending. She was encouraged to stop taking the Augmentin that is likely giving her the diarrhea. Prescription for Zofran was sent into the pharmacy for her. Bedside handoff was given with Martín Curiel NP. Plan to DC patient as long as repeat lactic is okay. (ANEL PATRICK) 03/27/20 20:28 Report received on patient 03/27/20 21:20 I did evaluate the patient she is in absolutely no distress at this time. Her second lactic after IV fluids has been performed and is 1.4 which is normal. Likely mild dehydration. Patient does not appear uroseptic. Will be discharged home to follow-up with PCP (MARTÍN CURIEL) - Vital Signs Vital signs: Temp Pulse Resp BP Pulse Ox 97.8 F 79 18 151/68 H 99 03/27/20 17:00 03/27/20 17:00 03/27/20 17:00 03/27/20 17:00 03/27/20 17:00 - Laboratory Laboratory results interpreted by me: 03/27/20 03/27/20 03/27/20 14:48 14:48 17:15 Est GFR (MDRD) Non-Af 58 L Glucose 114 H Lactic Acid 3.1 H Calcium 10.4 H Leukocyte Esterase Rfl SMALL H Urine Ascorbic Acid 20 H Discharge <ANEL PATRICK - Last Filed: 03/27/20 20:03> <MARTÍN CURIEL - Last Filed: 03/27/20 21:22> - Discharge Clinical Impression: Diarrhea Qualifiers: Diarrhea type: unspecified type Qualified Code(s): R19.7 - Diarrhea, unspecified UTI (urinary tract infection) Qualifiers: Urinary tract infection type: site unspecified Hematuria presence: without hematuria Qualified Code(s): N39.0 - Urinary tract infection, site not specified Condition: Stable Disposition: HOME, SELF-CARE Additional Instructions: Stop the Augmentin. Take Zofran for any nausea or vomiting. Follow-up with your primary care provider in 1 to 2 days for recheck and reevaluation. The recheck of your lactic acid level was normal. Your urine culture is pending currently and you should receive a call about this in 48 hours from the follow- up nurse. Return for any concerns or problems Prescriptions: Ondansetron [Zofran Odt 4 mg Tablet] 1 - 2 tab PO Q4H PRN #15 tab.rapdis PRN Reason: For Nausea/Vomiting Referrals: DERIK DIETZ PA-C [COMMUNITY BASED STAFF] - Follow up as needed
[2020-03-27] MEDS ORDERED: NORMAL SALINE 1000 ML 3,000 ML IV ONE (18:19)
[2020-03-27] MEDS ORDERED: CEFTRIAXONE 1 GM/D5W RTU 1 GM/50 ML RTUPB IV ONE (19:50)
[2020-03-27 21:59] VITALS: BP 158/87
== END 2020-03-27 21:59 | disposition home or self-care (01) ==
LOC: ER 12:48
DX: R19.7 Diarrhea, unspecified (principal); N39.0 Urinary tract infection, site not specified; B96.20 Unspecified Escherichia coli [E. coli] as the cause of diseases classified elsewhere; R11.2 Nausea with vomiting, unspecified; R51 Headache; R53.81 Other malaise; M79.10 Myalgia, unspecified site; I25.10 Atherosclerotic heart disease of native coronary artery without angina pectoris; E11.9 Type 2 diabetes mellitus without complications; I10 Essential (primary) hypertension; Z88.3 Allergy status to other anti-infective agents; Z88.1 Allergy status to other antibiotic agents; Z91.048 Other nonmedicinal substance allergy status; Z88.8 Allergy status to other drugs, medicaments and biological substances
CPT/HCPCS: 99285; 96361; 96365; 36415; 87040; 87086; 83605; 85025; 87077; 87088; 80053; 81001; 70450; J7030; J0696

== ENCOUNTER → 2020-05-15 | Outpatient (CLI) | payer MEDICARE, BC ==
--- NOTE | 2020-05-15 15:53 | WOMENS IMAGING REPORT ---
EXAM DESCRIPTION: BONE DENSITY HIP/SPINE IMAGES COMPLETED DATE/TIME: 05/15/2020 2:15 pm REASON FOR STUDY: Z78.0 ASYMPTOMATIC MENOPAUSAL STATE M85.80 OTH DISRD OF BONE DENSITY AND STRUCTUR E, UNSPECIFIED Z78.0 ASYMPTOMATIC MENOPAUSAL STATE COMPARISON: None. TECHNIQUE: Dual-Energy X-ray Absorptiometry (DEXA) of the AP Spine and Hip. LIMITATIONS: None. FINDINGS: LUMBAR SPINE: The bone mineral density (BMD) measured from L1-L4 in the AP projection correlates with a T-score of -0.1, which is normal as defined by the World Health Organization. BMD Change vs Baseline: N/A HIP: The bone mineral density (BMD) measured in the left hip correlates with a T-score of -0.2 in the femo ral neck, which is normal as defined by the World Health Organization. BMD Change vs Baseline: N/A 10 year Fracture Risk Assessment: Major Osteoporotic Fracture: Not available. Hip Fracture: Not available. IMPRESSION: 1. LUMBAR SPINE WHO CLASSIFICATION: NORMAL. 2. HIP WHO CLASSIFICATION: NORMAL. OVERALL ASSESSMENT: WHO CLASSIFICATION: NORMAL. COMMENT: The World Health Organization defines low BMD as follows: T-score: Normal: At or above -1.0 Osteopenia: Between -1.0 and -2.5 Osteoporosis: At or below -2.5 without fractures Established osteoporosis: At or below -2.5 with fractures In general, you may wish to consider: Diagnosis Treatment Follow-up DEXA Normal BMD Prevention 2-3 years Osteopenia Prevention/Therapy 1-2 years Osteoporosis Therapy Yearly TECHNICAL DOCUMENTATION: JOB ID: [id number] 2010 [employer]- All Rights Reserved Reading location - IP/workstation name: [email or web address]
== END ==
LOC: WI 13:46
PROVIDERS: ATTEND Orthopaedic Surgery
DX: M85.80 Other specified disorders of bone density and structure, unspecified site (principal); Z78.0 Asymptomatic menopausal state
CPT/HCPCS: 77080